=== PATIENT | female | born 1940 | race Caucasian/White ===

== ENCOUNTER → 2017-10-22 07:46 | Outpatient (CLI) | payer MEDICARE, OTHER, SELFPAY ==
[2017-10-22 09:25] LABS: Add Manual Diff / Slide Review NO; Eosinophils Percent Auto 5.1 % (2-4); Hematocrit 39.9 % (36-46); Hemoglobin 13.8 g/dL (12.0-16.0); Lymphocytes Percent Auto 34.4 % (25-40); Mean Corpuscular HGB Conc 34.7 % (30-36); Mean Corpuscular Hemoglobin 34.5 PG (26-34); Mean Corpuscular Volume 99.6 fL (80-100); Monocytes Percent Auto 7.9 % (3-14); Neutrophils Absolute Auto 3400 /uL (3000-5900); Neutrophils Percent Auto 51.6 % (50-75); Platelet Count 207 X10^3/uL (150-400); White Blood Cell Count 6.5 X10^3/uL (4.5-11.0)
[2017-10-22 09:33] LABS: Alanine Aminotransferase 24 IU/L (9-52); Albumin 3.9 g/dL (3.5-5.0); Albumin Globulin Ratio 1.4 (1.0-2.8); Alkaline Phosphatase 46 U/L (38-126); Aspartate Aminotransferase 22 IU/L (14-36); BUN Creatinine Ratio 18.6 (6-22); Bilirubin Total 0.6 mg/dL (0.2-1.3); Blood Urea Nitrogen 13 mg/dL (7-17); Calcium 9.4 mg/dL (8.4-10.2); Carbon Dioxide 29 mmol/L (22-32); Chloride 102 mmol/L (98-107); Cholesterol 214 mg/dL (140-199); Estimated Glomerular Filt Rate > 60.0 mL/min (>60); Globulin 2.7 g/dL (1.7-4.1); Glucose 117 mg/dL (80-110); HDL Cholesterol 56 mg/dL (40-60); HEMOLYSIS < 15 (0-50); LDL Cholesterol Calculated 125 mg/dL (<100); Potassium 3.7 mmol/L (3.4-5.1); Sodium 140 mmol/L (137-145); Total Protein 6.6 g/dL (6.3-8.2); Triglycerides 166 mg/dL (35-150)
== END ==
PROVIDERS: PCP Family Medicine; Visit Provider Family Medicine
DX: I10 Essential (primary) hypertension (principal); E78.5 Hyperlipidemia, unspecified
CPT/HCPCS: 36415; 80053; 80061; 85025

== ENCOUNTER → 2018-04-03 08:37 | Outpatient (CLI) | payer MEDICARE, OTHER, SELFPAY ==
--- NOTE | 2018-04-03 | DI.MRI.S_ITS ---
PROCEDURE: MR SHOULDER RT WO CON INDICATIONS: UNSPECIFIED ROTATOR CUFF TEAR TECHNIQUE: Noncontrast oblique coronal T2 fast spin echo with fat saturation, oblique sagittal T1 spin echo and T2 fast spin echo with fat saturation, axial T1 spin echo and T2 fast spin echo with fat saturation through the shoulder. COMPARISON: [facility] [place], [place], XR SHOULDER 2+ VIEWS RIGHT, 01/21/2018, 11:29. FINDINGS: Image quality: Excellent. Rotator cuff: The full-thickness tear of the anterior supraspinatus tendon measuring 1.0 cm in AP dimension on sagittal image 13 series 10. This measures 1.0 cm in the transverse dimension seen on coronal image 10 series 8. Infraspinatus tendinopathy and interstitial tearing. There is also infraspinatus low-grade articular surface fraying. The teres minor appears intact. Mild subscapularis tendinopathy and thickening. There is severe atrophy of the supraspinatus muscle. Diffuse fatty infiltration of the infraspinatus also present, and may involve the teres minor Bones and bursae: No bone marrow contusions or fractures. Moderate to severe acromioclavicular joint degeneration. The acromion demonstrates conventional anatomy, without an os acromiale. Capsule and soft tissues: Ill-defined superior -labral tear/degeneration, which may be chronic although technically age-indeterminate.There is also ill-defined intermediate intrasubstance signal change within the posterior labrum. The anterior labrum appears grossly intact. Blunted appearance of the inferior labral segment. The long head of the biceps tendon demonstrates normal location and morphology. The rotator interval appears normal, without fibrosis. The coracohumeral ligament is normal in thickness. IMPRESSION: Full-thickness tear of the supraspinatus tendon. Associated severe supraspinatus muscle atrophy. Infraspinatus tendinopathy and interstitial tearing, with low-grade articular surface fraying. Diffuse fatty filtration of the infraspinatus and teres minor muscles. Mild subscapularis tendinopathy. Ill-defined superior and posterior labral tear/degenerative fraying. This finding is technically age-indeterminate. Dictated by: Harshad Wilde M.D. on 04/05/2018 at 10:13 Approved by: Harshad Wilde M.D. on 04/05/2018 at 10:25
== END ==
PROVIDERS: PCP Student in an Organized Health Care Education/Training Program; Visit Provider Orthopaedic Surgery
DX: M75.121 Complete rotator cuff tear or rupture of right shoulder, not specified as traumatic (principal)
CPT/HCPCS: 73221

== ENCOUNTER 2018-06-17 16:00 | Outpatient (RCR) | payer MEDICARE, OTHER, SELFPAY ==
--- NOTE | 2018-04-27 17:15 | PT.OIE ---
Current Diagnoses Other specific arthropathies, not elsewhere classified, right shoulder (04/27/18) Unspecified rotator cuff tear or rupture of right shoulder, not specified as traumatic (04/27/18) Past Medical History (Last Updated 12/17/17 @ 15:39 by Verónica Maldonado LPN) History of DVT of lower extremity (Resolved 2009) History of pulmonary embolism (Resolved 05/2010) Postherpetic neuralgia (Chronic) Hyperlipidemia (Chronic) Essential hypertension (Chronic) Allergic rhinitis (Chronic 1958) Chronic back pain (Chronic 1973) Diverticular disease (Chronic 2016) Vertigo (Chronic Unknown) Cataracts, bilateral (Resolved 2009) Chickenpox (Resolved) Knee pain, left (Resolved ~2011) Measles (Resolved) Polio (Resolved 1954) Pulmonary embolism (Resolved 2013) Skin cancer (Resolved 2013) Substance abuse (Resolved 1959) Past Surgical History (Last Updated 12/17/17 @ 15:39 by Verónica Maldonado LPN) S/P hysterectomy (Resolved 1988) Status post breast reduction (Resolved 1994) Status post cataract surgery (Resolved 2009) History of section (Resolved 1959) History of section (Resolved 1961) History of section (Resolved 1966) History of lumbar laminectomy (Resolved ~1973) Provider Visit Care Team Role Provider Type Francis Benton MD Attending Provider Physician Primary Care Provider Specialty: Internal Medicine Address: [address] [place] [address], [facility] Email: Physical Therapy Initial Evaluation PT-OP-A Visit Information Start: 04/27/18 15:29 Freq: Status: Active Protocol: Document 04/27/18 14:30 HH (Rec: 04/27/18 15:47 [email or web address]) Out-Patient Physical Therapy Visit Information Visit Information Visit Type Initial Evaluation Visit Start Time 14:30 Visit Stop Time 15:20 Total Visit Minutes 50 Visit Number 1 Number of AEROSPACE MEDICINE PHYSICIAN Visits 0 Evaluation Information Evaluation Date 04/27/18 PT-OP-B Current Condition Start: 04/27/18 15:29 Freq: Status: Active Protocol: Document 04/27/18 14:30 HH (Rec: 04/27/18 15:47 [email or web address]) Current Condition History of Current Condition Onset Date 2017 Current Complaints R RTC tear History of Current Condition Pt c/o R shoulder pain 4-10 since 4 months ago and was dx with R RTC tear from MRI. Pt states My doctor told me this is an old RTC tear so i recommend to get physical therapy instead of surgical approach. told me there is some muscle atrophy for the rest of the RTC. Pt also reports my ROM is pretty good at this point but i have difficulty lifting my coffee cup, using communications department chairperson and driving for long distance. Pt c/o pain worsens during shoulder flexion and abduction at 90 degrees. Prior Treatments and Tests pt received physical therapy before but it did not help her symptoms. Treatment Goals Patient/Caregiver Goals To strengthen overall shoulder muscles To be able to lift her coffee cup without pain To be able to use hair salon manager without pain To be able to drive for long distance without pain Prior Functional Status Baseline Function- ADL's Independent Baseline Function- Mobility Independent Baseline Function- Work/School independent Baseline Function- Recreation/Hobbies independent Current Functional Impairments (Reported) Functional Limitations- ADL's careful and slow with dressing , holding objects and using hair dryers PT-OP-C Subjective Start: 04/27/18 15:29 Freq: Status: Active Protocol: Document 04/27/18 14:30 HH (Rec: 04/27/18 15:47 HH [email or web address]) OP-PT Subjective Patient Comments Patient Reported Progress Same Patient Questionnaires Quick Dash- Upper Extremity Quick Dash UE Impairment 20 to 39% Impaired (Score 20- 39) OP-PT Pain Assessment Location Right Shoulder Pain Location Details superior aspect of R shoulder Intensity 6 Scale Used Numeric (1 - 10) Description Aching Dull Frequency Constant Pain Aggravating Factors ADL's Activity Exercise Pain Alleviating Factors Elevation PT-OP-F Manual Assessment Start: 04/27/18 15:29 Freq: Status: Active Protocol: Document 04/27/18 14:30 HH (Rec: 04/27/18 15:47 HH [email or web address]) Manual Assessments Soft Tissue Assessment Soft Tissue Mobility Assessment Tenderness at R upper trap, middle deltoid and infraspinatus PT-OP-K Range of Motion Start: 04/27/18 15:29 Freq: Status: Active Protocol: Document 04/27/18 14:30 HH (Rec: 04/27/18 15:47 HH [email or web address]) Shoulder Goniometric Range of Motion Shoulder Measured in Degrees Right Passive Shoulder ROM WFL Yes Testing Position Supine Flexion 180 Extension 60 Abduction 180 External Rotation at 90 degrees 90 Abduction Internal Rotation 80 Right Active Shoulder ROM WFL Yes Testing Position Standing Flexion 180 Extension 50 Abduction 180 External Rotation at 90 degrees 80 Abduction Internal Rotation 70 PT-OP-L Special Tests Start: 04/27/18 15:29 Freq: Status: Active Protocol: Document 04/27/18 14:30 HH (Rec: 04/27/18 15:47 [email or web address]) Special Tests Shoulder Special Tests Elevation Impingement Test Results +ve Comments Painful arc most painful at 90 degrees shoulder flexion and abduction . Drop Arm Rotator Cuff Test Results +ve Comments unable to hold >10 secs at 90 degrees with elbow extension Empty Can Test Results +ve Comments unable to hold >10 secs PT-OP-M Strength Start: 04/27/18 15:29 Freq: Status: Active Protocol: Document 04/27/18 14:30 HH (Rec: 04/27/18 16:04 [email or web address]) Shoulder Strength Shoulder Manual Muscle Testing Right Flexion 3 Fair Extension 4- Good- Abduction (C5) 3 Fair Adduction 4- Good- External Rotation 3 Fair Internal Rotation 3 Fair PT-OP-Q Treatments Start: 04/27/18 15:29 Freq: Status: Active Protocol: Document 04/27/18 14:30 HH (Rec: 04/27/18 17:15 [email or web address]) Therapeutic Exercises Sitting Exercises 1 Sitting Exercise Name R shoulder table lift. Side right Comments 5 seconds hold at 60 R shoulder abd. Neuro Re-Education Treatment Movement Re-Education Movement Re-education Activities MET in supine at R 90 shoulder ABD for painful range. Isometric to concentric from end range of ER to IR PT-OP-T Assessment and Plan Start: 04/27/18 15:29 Freq: Status: Active Protocol: Document 04/27/18 14:30 HH (Rec: 04/27/18 16:04 [email or web address]) Physical Therapy Assessment Rehab Potential Rehabilitation Potential Good Evaluation Complexity Number of Personal Factors/Comorbidities 1-2 Number of Body Systems Impaired 1-2 Clinical Presentation at Evaluation Stable Impairments Impairments Functional Activities Functional Mobility Pain ROM Strength Goals Three Impairment ROM Short Term Goal (STG) Increase GH IR and ER at 90 degrees GH abduction by 10 degrees in pain free STG Duration 4 Jail Goal (LTG) Increase GH IR and ER at 90 degrees GH abduction by 20 degrees in pain free LTG Duration 8 Two Impairment ADLs Short Term Goal (STG) Reduce R shoulder pain by 2 points during overhead movements and ADLs dressing STG Duration 4 Collection Coordinator Goal (LTG) Reduce R shoulder pain by 4 points during overhead movements and ADLs dressing LTG Duration 8 One Impairment strenght Short Term Goal (STG) increase overall shoulder strength 1/2 MMT grade STG Duration 4 Jail Goal (LTG) increase overall shoulder strength 1 MMT grade LTG Duration 8 Assessment Summary Assessment Pt attends PT with a history of chronic R shoulder pain with a recent dx of R RTC tear . Pt states decrease mobility and strength for ADLs recently such as holding a coffee cup, dressing and hold a hair salon manager. Upon assessment, pt presents WFLs AROM and PROM along with c/o painful arc. Pain gets worse at 90 degrees shoulder flexion and abduction eccentrically; end range of ER and IR. However, pt reports pain improved after MET with isometric contraction at painful arc. Pt's ER and IR at 90 degrees GH abduction increase 10 degrees after MET as well. Pt education on isometric contraction for GH ER IR (against door) and isometric shoulder lift (60 degrees shoulder abduction) at table level for HEP. Pt reports improvements in symptoms with reduced pain during GH flexion and abduction at the end of tx session. Pt will benefit from skilled physical therapy for overall RTC neuromuscular reeducation and shoulder strengthening to improve functional mobility. Physical Therapy Plan Frequency and Duration Frequency of Treatment 2x/Week Duration of Treatment 50 Plan of Care Start Date 04/27/18 Plan of Care End Date 06/22/17 Therapeutic Interventions Therapeutic Interventions Home Exercise Program Manual Therapy Neuromuscular Re-education Patient/Caregiver Education Therapeutic Activities Therapeutic Exercises Next Visit Focus/Plan Next Note Type Treatment Note Next Visit Plan Cont MET for painful range with progression from isometric to concentric shoulder stabilization CKC/ OK[facility] therex
--- NOTE | 2018-04-29 17:52 | PT.OTN ---
Current Diagnoses Other specific arthropathies, not elsewhere classified, right shoulder (04/29/18) Unspecified rotator cuff tear or rupture of right shoulder, not specified as traumatic (04/29/18) Physical Therapy Treatment Note PT-OP-A Visit Information Start: 04/27/18 15:29 Freq: Status: Active Protocol: Document 04/29/18 15:15 HH (Rec: 04/29/18 17:52 [email or web address]) Out-Patient Physical Therapy Visit Information Visit Information Visit Type Treatment Note Visit Start Time 15:15 Visit Stop Time 16:00 Total Visit Minutes 45 Visit Number 2 Number of WORD PROCESSING SUPERVISOR Visits 0 PT-OP-B Current Condition Start: 04/27/18 15:29 Freq: Status: Active Protocol: Document 04/27/18 14:30 HH (Rec: 04/27/18 15:47 HH [email or web address]) Current Condition History of Current Condition Onset Date 2017 Current Complaints R RTC tear History of Current Condition Pt c/o R shoulder pain 4-10/25 since 4 months ago and was dx with R RTC tear from MRI. Pt states My doctor told me this is an old RTC tear so i recommend to get physical therapy instead of surgical approach. told me there is some muscle atrophy for the rest of the RTC. Pt also reports my ROM is pretty good at this point but i have difficulty lifting my coffee cup, using chairman of the board and driving for long distance. Pt c/o pain worsens during shoulder flexion and abduction at 90 degrees. Prior Treatments and Tests pt received physical therapy before but it did not help her symptoms. Treatment Goals Patient/Caregiver Goals To strengthen overall shoulder muscles To be able to lift her coffee cup without pain To be able to use hair machine operator without pain To be able to drive for long distance without pain Prior Functional Status Baseline Function- ADL's Independent Baseline Function- Mobility Independent Baseline Function- Work/School independent Baseline Function- Recreation/Hobbies independent Current Functional Impairments (Reported) Functional Limitations- ADL's careful and slow with dressing , holding objects and using hair dryers PT-OP-C Subjective Start: 04/27/18 15:29 Freq: Status: Active Protocol: Document 04/29/18 15:15 HH (Rec: 04/29/18 17:52 HH [email or web address]) OP-PT Subjective Patient Comments Patient Comments pt reports HEP isometric abduction hold has been difficult to perform. I feel kind of sore today after i did my home exercises yesterday. Patient Reported Progress Same OP-PT Pain Assessment Location Right Shoulder Intensity 5 Description Aching Frequency Frequent Pain Aggravating Factors Activity Exercise PT-OP-F Manual Assessment Start: 04/27/18 15:29 Freq: Status: Active Protocol: Document 04/27/18 14:30 HH (Rec: 04/27/18 15:47 [email or web address]) Manual Assessments Soft Tissue Assessment Soft Tissue Mobility Assessment Tenderness at R upper trap, middle deltoid and infraspinatus PT-OP-K Range of Motion Start: 04/27/18 15:29 Freq: Status: Active Protocol: Document 04/27/18 14:30 HH (Rec: 04/27/18 15:47 [email or web address]) Shoulder Goniometric Range of Motion Shoulder Measured in Degrees Right Passive Shoulder ROM WFL Yes Testing Position Supine Flexion 180 Extension 60 Abduction 180 External Rotation at 90 degrees 90 Abduction Internal Rotation 80 Right Active Shoulder ROM WFL Yes Testing Position Standing Flexion 180 Extension 50 Abduction 180 External Rotation at 90 degrees 80 Abduction Internal Rotation 70 PT-OP-L Special Tests Start: 04/27/18 15:29 Freq: Status: Active Protocol: Document 04/27/18 14:30 HH (Rec: 04/27/18 15:47 [email or web address]) Special Tests Shoulder Special Tests Elevation Impingement Test Results +ve Comments Painful arc most painful at 90 degrees shoulder flexion and abduction . Drop Arm Rotator Cuff Test Results +ve Comments unable to hold >10 secs at 90 degrees with elbow extension Empty Can Test Results +ve Comments unable to hold >10 secs PT-OP-M Strength Start: 04/27/18 15:29 Freq: Status: Active Protocol: Document 04/27/18 14:30 HH (Rec: 04/27/18 16:04 HH [email or web address]) Shoulder Strength Shoulder Manual Muscle Testing Right Flexion 3 Fair Extension 4- Good- Abduction (C5) 3 Fair Adduction 4- Good- External Rotation 3 Fair Internal Rotation 3 Fair PT-OP-Q Treatments Start: 04/27/18 15:29 Freq: Status: Active Protocol: Document 04/29/18 15:15 HH (Rec: 04/29/18 17:52 HH [email or web address]) Therapeutic Exercises Supine Exercises supine elevation with cane Supine Exercise Name AAROM with L UE Side right Equipment Used cane Reps/Minutes 5 mins Sitting Exercises 1 Sitting Exercise Name table slide Side right Reps/Minutes 10 reps Standing Exercises R UE AAROM shoulder elevation with cane Standing Exercise Name AAROM Side right Equipment Used cane Manual Therapy Treatment Soft Tissue Mobilization active release at R RTC Body Location R RTC Mobilization Type Cross-Friction Intensity/Depth Superficial Body Position Sidelying Comments along with sidelying R GH ER PT-OP-T Assessment and Plan Start: 04/27/18 15:29 Freq: Status: Active Protocol: Document 04/29/18 15:15 HH (Rec: 04/29/18 17:52 HH [email or web address]) Physical Therapy Assessment Impairments Impairments Pain ROM Strength Assessment Summary Assessment Pt presents to clinic with c/o my R shoulder is pretty sore after trying the shoulder hold at home. Pt starts with PROM at R GH joint. Pt presents mild to moderate muscle guarding during passive movements. Pt requires v.c. for muscle relaxation. Pt reports reduce in pain to use a cane for AAROM. pt also denies pain with sidelying active ER and IR. Pt is instructed to modify her HEP which includes AAROM with a cane for R GH flexion and abduction; table slides into GH flexion and abduction. Pt also reports decrease in pain after E-stim with biphasic [place] parameter (intensity at 30, cont ) at her trap and infraspinatus. Cont POC with the emphasis of passive/ AAROM along with scapular strengthening. Physical Therapy Plan Therapeutic Interventions Therapeutic Interventions Home Exercise Program Neuromuscular Re-education Patient/Caregiver Education Soft Tissue Mobilization Taping Therapeutic Activities Therapeutic Exercises Modalities Cold Pack/Ice Massage Electric Stimulation Hot Packs Next Visit Focus/Plan Next Note Type Treatment Note Next Visit Plan KT tape for shoulder stability passive/ AAROM along with scapular strengthening.
--- NOTE | 2018-05-04 13:03 | PT.OTN ---
Current Diagnoses Other specific arthropathies, not elsewhere classified, right shoulder (05/04/18) Unspecified rotator cuff tear or rupture of right shoulder, not specified as traumatic (05/04/18) Physical Therapy Treatment Note PT-OP-A Visit Information Start: 04/27/18 15:29 Freq: Status: Active Protocol: Document 05/04/18 09:45 HH (Rec: 05/04/18 11:30 HH [email or web address]) Out-Patient Physical Therapy Visit Information Visit Information Visit Type Treatment Note Visit Start Time 09:45 Visit Stop Time 10:30 Total Visit Minutes 45 Visit Number 3 Number of INDUSTRIAL PARAMEDIC Visits 0 PT-OP-B Current Condition Start: 04/27/18 15:29 Freq: Status: Active Protocol: Document 04/27/18 14:30 HH (Rec: 04/27/18 15:47 HH [email or web address]) Current Condition History of Current Condition Onset Date 2017 Current Complaints R RTC tear History of Current Condition Pt c/o R shoulder pain 4-10/25 since 4 months ago and was dx with R RTC tear from MRI. Pt states My doctor told me this is an old RTC tear so i recommend to get physical therapy instead of surgical approach. told me there is some muscle atrophy for the rest of the RTC. Pt also reports my ROM is pretty good at this point but i have difficulty lifting my coffee cup, using counseling department chair and driving for long distance. Pt c/o pain worsens during shoulder flexion and abduction at 90 degrees. Prior Treatments and Tests pt received physical therapy before but it did not help her symptoms. Treatment Goals Patient/Caregiver Goals To strengthen overall shoulder muscles To be able to lift her coffee cup without pain To be able to use chair mechanic without pain To be able to drive for long distance without pain Prior Functional Status Baseline Function- ADL's Independent Baseline Function- Mobility Independent Baseline Function- Work/School independent Baseline Function- Recreation/Hobbies independent Current Functional Impairments (Reported) Functional Limitations- ADL's careful and slow with dressing , holding objects and using hair dryers PT-OP-C Subjective Start: 04/27/18 15:29 Freq: Status: Active Protocol: Document 05/04/18 09:45 HH (Rec: 05/04/18 11:30 HH [email or web address]) OP-PT Subjective Patient Comments Patient Comments pt complies to HEP. However, she c/o increased achy and dull pain at her right shoulder since this weekend after prolonged cleaning and moving heavy objects with her R UE. I am so used to use my R arm without knowing it and i feel weak. But my shoulder did feel good after last visit for 2 days Patient Reported Progress Same OP-PT Pain Assessment Location Right Shoulder Intensity 5 Description Aching Frequency Frequent Pain Aggravating Factors ADL's Activity Exercise Pain Alleviating Factors Heat PT-OP-F Manual Assessment Start: 04/27/18 15:29 Freq: Status: Active Protocol: Document 04/27/18 14:30 HH (Rec: 04/27/18 15:47 [email or web address]) Manual Assessments Soft Tissue Assessment Soft Tissue Mobility Assessment Tenderness at R upper trap, middle deltoid and infraspinatus PT-OP-K Range of Motion Start: 04/27/18 15:29 Freq: Status: Active Protocol: Document 04/27/18 14:30 HH (Rec: 04/27/18 15:47 [email or web address]) Shoulder Goniometric Range of Motion Shoulder Measured in Degrees Right Passive Shoulder ROM WFL Yes Testing Position Supine Flexion 180 Extension 60 Abduction 180 External Rotation at 90 degrees 90 Abduction Internal Rotation 80 Right Active Shoulder ROM WFL Yes Testing Position Standing Flexion 180 Extension 50 Abduction 180 External Rotation at 90 degrees 80 Abduction Internal Rotation 70 PT-OP-L Special Tests Start: 04/27/18 15:29 Freq: Status: Active Protocol: Document 04/27/18 14:30 HH (Rec: 04/27/18 15:47 [email or web address]) Special Tests Shoulder Special Tests Elevation Impingement Test Results +ve Comments Painful arc most painful at 90 degrees shoulder flexion and abduction . Drop Arm Rotator Cuff Test Results +ve Comments unable to hold >10 secs at 90 degrees with elbow extension Empty Can Test Results +ve Comments unable to hold >10 secs PT-OP-M Strength Start: 04/27/18 15:29 Freq: Status: Active Protocol: Document 04/27/18 14:30 HH (Rec: 04/27/18 16:04 [email or web address]) Shoulder Strength Shoulder Manual Muscle Testing Right Flexion 3 Fair Extension 4- Good- Abduction (C5) 3 Fair Adduction 4- Good- External Rotation 3 Fair Internal Rotation 3 Fair PT-OP-Q Treatments Start: 04/27/18 15:29 Freq: Status: Active Protocol: Document 05/04/18 09:45 HH (Rec: 05/04/18 11:30 HH [email or web address]) Therapeutic Exercises Sitting Exercises seated scap depression Sitting Exercise Name scap depression Equipment Used mirror Reps/Minutes 2 mins 1 Sitting Exercise Name OH wall sling AAROM Side right Reps/Minutes 2 mins Comments GH flexion, abduction and, extension Standing Exercises iso scap retraction Resistance isometric Reps/Minutes 2 mins AAROM flexion with hip hinge Standing Exercise Name R GH flexion at stair handle and hip hinge Resistance AAROM Reps/Minutes 10 reps iso push against wall at 90 elbow Standing Exercise Name iso push at ER, IR, FL, Ext Resistance isometric Reps/Minutes 10 secs hold Neuro Re-Education Treatment Other Activities E STIM biphasic Details at R RTC Comments with hot pad PT-OP-T Assessment and Plan Start: 04/27/18 15:29 Freq: Status: Active Protocol: Document 05/04/18 09:45 HH (Rec: 05/04/18 13:02 HH [email or web address]) Physical Therapy Assessment Impairments Impairments Activity Tolerance Functional Activities Functional Mobility Pain ROM Strength Progress Towards Goals Progress Towards Goals Slow Progress - Other Progress Comments Pt presents slow rehab progress due to other factors such as househould duties with lifting and cleaning which consistently resistive work for her R shoulder. Assessment Summary Assessment Pt presents to clinic with increased c/o of achy pain at her R shoulder after household cleaning for the weekend. Pt education on awareness of workload to her R shoulder. Pt presents increased R UT activation during R shoulder OH movements. Pt cont presents difficulty in scap control primarily scap depression and retraction with R UT compensation. Relaxation techniques include scap depression with mirror. Pt denies pain during iso push against wall with R GH extension and IR. She also reports reduce in pain after Estim (biphasic 10/10 intensity 30 at RTC) and hot pack. Cont POC to emphasize on R UT relaxation, NM re-ed on R remaining RTC for GH stability, isometric strengthening for RTC and AAROM movements. Physical Therapy Plan Therapeutic Interventions Therapeutic Interventions Home Exercise Program Neuromuscular Re-education Patient/Caregiver Education Soft Tissue Mobilization Taping Therapeutic Activities Therapeutic Exercises Modalities Cold Pack/Ice Massage Electric Stimulation Hot Packs Next Visit Focus/Plan Next Note Type Treatment Note Next Visit Plan R KT tape R UT relaxation, NM re-ed on R remaining RTC for GH stabiltiy, isometric strengthening for RTC and passive/ AAROM movements.
--- NOTE | 2018-05-06 17:44 | PT.OTN ---
Current Diagnoses Other specific arthropathies, not elsewhere classified, right shoulder (05/06/18) Unspecified rotator cuff tear or rupture of right shoulder, not specified as traumatic (05/06/18) Physical Therapy Treatment Note PT-OP-A Visit Information Start: 04/27/18 15:29 Freq: Status: Active Protocol: Document 05/06/18 16:00 HH (Rec: 05/06/18 17:44 HH [email or web address]) Out-Patient Physical Therapy Visit Information Visit Information Visit Type Treatment Note Visit Start Time 16:00 Visit Stop Time 16:45 Total Visit Minutes 45 Visit Number 4 Number of INSOLE AND OUTSOLE PREPARER Visits 0 PT-OP-B Current Condition Start: 04/27/18 15:29 Freq: Status: Active Protocol: Document 04/27/18 14:30 HH (Rec: 04/27/18 15:47 HH [email or web address]) Current Condition History of Current Condition Onset Date 2017 Current Complaints R RTC tear History of Current Condition Pt c/o R shoulder pain 4-10 since 4 months ago and was dx with R RTC tear from MRI. Pt states My doctor told me this is an old RTC tear so i recommend to get physical therapy instead of surgical approach. told me there is some muscle atrophy for the rest of the RTC. Pt also reports my ROM is pretty good at this point but i have difficulty lifting my coffee cup, using hairpiece stylist and driving for long distance. Pt c/o pain worsens during shoulder flexion and abduction at 90 degrees. Prior Treatments and Tests pt received physical therapy before but it did not help her symptoms. Treatment Goals Patient/Caregiver Goals To strengthen overall shoulder muscles To be able to lift her coffee cup without pain To be able to use chair mechanic without pain To be able to drive for long distance without pain Prior Functional Status Baseline Function- ADL's Independent Baseline Function- Mobility Independent Baseline Function- Work/School independent Baseline Function- Recreation/Hobbies independent Current Functional Impairments (Reported) Functional Limitations- ADL's careful and slow with dressing , holding objects and using hair dryers PT-OP-C Subjective Start: 04/27/18 15:29 Freq: Status: Active Protocol: Document 05/06/18 16:00 HH (Rec: 05/06/18 17:44 HH [email or web address]) OP-PT Subjective Patient Comments Patient Comments Pt reports her pain is the same and pain increases during household work such as cleaning and overhead reaching . Patient Reported Progress Same PT-OP-F Manual Assessment Start: 04/27/18 15:29 Freq: Status: Active Protocol: Document 04/27/18 14:30 HH (Rec: 04/27/18 15:47 [email or web address]) Manual Assessments Soft Tissue Assessment Soft Tissue Mobility Assessment Tenderness at R upper trap, middle deltoid and infraspinatus PT-OP-K Range of Motion Start: 04/27/18 15:29 Freq: Status: Active Protocol: Document 04/27/18 14:30 HH (Rec: 04/27/18 15:47 [email or web address]) Shoulder Goniometric Range of Motion Shoulder Measured in Degrees Right Passive Shoulder ROM WFL Yes Testing Position Supine Flexion 180 Extension 60 Abduction 180 External Rotation at 90 degrees 90 Abduction Internal Rotation 80 Right Active Shoulder ROM WFL Yes Testing Position Standing Flexion 180 Extension 50 Abduction 180 External Rotation at 90 degrees 80 Abduction Internal Rotation 70 PT-OP-L Special Tests Start: 04/27/18 15:29 Freq: Status: Active Protocol: Document 04/27/18 14:30 HH (Rec: 04/27/18 15:47 [email or web address]) Special Tests Shoulder Special Tests Elevation Impingement Test Results +ve Comments Painful arc most painful at 90 degrees shoulder flexion and abduction . Drop Arm Rotator Cuff Test Results +ve Comments unable to hold >10 secs at 90 degrees with elbow extension Empty Can Test Results +ve Comments unable to hold >10 secs PT-OP-M Strength Start: 04/27/18 15:29 Freq: Status: Active Protocol: Document 04/27/18 14:30 HH (Rec: 04/27/18 16:04 [email or web address]) Shoulder Strength Shoulder Manual Muscle Testing Right Flexion 3 Fair Extension 4- Good- Abduction (C5) 3 Fair Adduction 4- Good- External Rotation 3 Fair Internal Rotation 3 Fair PT-OP-Q Treatments Start: 04/27/18 15:29 Freq: Status: Active Protocol: Document 05/06/18 16:00 HH (Rec: 05/06/18 17:44 HH [email or web address]) Therapeutic Exercises Prone Exercises scapular retraction Prone Exercise Name R scap retraction Reps/Minutes 10 reps x 2 Sidelying Exercises R GH ER/IR with 1 lbs Equipment Used 1 lb dumbbell Reps/Minutes 8 mins R sidelying open book Side right Reps/Minutes 8mins Manual Therapy Treatment Soft Tissue Mobilization active release at R RTC Body Location R RTC and R UT Mobilization Type Cross-Friction Intensity/Depth Superficial Body Position Prone PT-OP-T Assessment and Plan Start: 04/27/18 15:29 Freq: Status: Active Protocol: Document 05/06/18 16:00 HH (Rec: 05/06/18 17:44 HH [email or web address]) Physical Therapy Assessment Assessment Summary Assessment Pt cont report same level of pain. Pt states household work such as OH activities/ cleaning increase her symptoms . Significant tenderness at R greater tuberosity and distal insertion of R UT. Pt denies pain during R scapular open book in SL and SL R GH ER/IR with 1 lb dumbbell, but significant pain during shoulder abduction and flexion . Cont POC to strengthening in ER and IR, and available pain free motion. Physical Therapy Plan Next Visit Focus/Plan Next Note Type Treatment Note Next Visit Plan R KT tape R UT relaxation, NM re-ed on R remaining RTC for GH stabiltiy, isometric strengthening for RTC and passive/ AAROM movements. R ER and horizontal abduction
--- NOTE | 2018-05-12 17:30 | PT.OTN ---
Current Diagnoses Other specific arthropathies, not elsewhere classified, right shoulder (05/12/18) Unspecified rotator cuff tear or rupture of right shoulder, not specified as traumatic (05/12/18) Physical Therapy Treatment Note PT-OP-A Visit Information Start: 04/27/18 15:29 Freq: Status: Active Protocol: Document 05/12/18 15:15 HH (Rec: 05/12/18 17:30 HH [email or web address]) Out-Patient Physical Therapy Visit Information Visit Information Visit Type Treatment Note Visit Start Time 15:15 Visit Stop Time 16:00 Total Visit Minutes 45 Visit Number 5 Number of MANAGER OF CREATIVE SERVICES Visits 0 PT-OP-B Current Condition Start: 04/27/18 15:29 Freq: Status: Active Protocol: Document 04/27/18 14:30 HH (Rec: 04/27/18 15:47 HH [email or web address]) Current Condition History of Current Condition Onset Date 2017 Current Complaints R RTC tear History of Current Condition Pt c/o R shoulder pain 4-10/25 since 4 months ago and was dx with R RTC tear from MRI. Pt states My doctor told me this is an old RTC tear so i recommend to get physical therapy instead of surgical approach. told me there is some muscle atrophy for the rest of the RTC. Pt also reports my ROM is pretty good at this point but i have difficulty lifting my coffee cup, using applied psychology chair and driving for long distance. Pt c/o pain worsens during shoulder flexion and abduction at 90 degrees. Prior Treatments and Tests pt received physical therapy before but it did not help her symptoms. Treatment Goals Patient/Caregiver Goals To strengthen overall shoulder muscles To be able to lift her coffee cup without pain To be able to use chair spring assembler without pain To be able to drive for long distance without pain Prior Functional Status Baseline Function- ADL's Independent Baseline Function- Mobility Independent Baseline Function- Work/School independent Baseline Function- Recreation/Hobbies independent Current Functional Impairments (Reported) Functional Limitations- ADL's careful and slow with dressing , holding objects and using hair dryers PT-OP-C Subjective Start: 04/27/18 15:29 Freq: Status: Active Protocol: Document 05/12/18 15:15 HH (Rec: 05/12/18 17:30 HH [email or web address]) OP-PT Subjective Patient Comments Patient Comments Pt reports her pain and symptoms have been the same since last visit. Pt states she has been doing lots of house work and cleaning with the use of her R UE. She c/o soreness and fatigue especially maintaining her R arm at shoulder level. She also reports I have a hard time to not use my R shoulder because its like my instinct. Pt reports she is compliant to HEP and heat pad seems to reduce her pain. Patient Reported Progress Same PT-OP-F Manual Assessment Start: 04/27/18 15:29 Freq: Status: Active Protocol: Document 04/27/18 14:30 HH (Rec: 04/27/18 15:47 [email or web address]) Manual Assessments Soft Tissue Assessment Soft Tissue Mobility Assessment Tenderness at R upper trap, middle deltoid and infraspinatus PT-OP-K Range of Motion Start: 04/27/18 15:29 Freq: Status: Active Protocol: Document 04/27/18 14:30 HH (Rec: 04/27/18 15:47 [email or web address]) Shoulder Goniometric Range of Motion Shoulder Measured in Degrees Right Passive Shoulder ROM WFL Yes Testing Position Supine Flexion 180 Extension 60 Abduction 180 External Rotation at 90 degrees 90 Abduction Internal Rotation 80 Right Active Shoulder ROM WFL Yes Testing Position Standing Flexion 180 Extension 50 Abduction 180 External Rotation at 90 degrees 80 Abduction Internal Rotation 70 PT-OP-L Special Tests Start: 04/27/18 15:29 Freq: Status: Active Protocol: Document 04/27/18 14:30 HH (Rec: 04/27/18 15:47 [email or web address]) Special Tests Shoulder Special Tests Elevation Impingement Test Results +ve Comments Painful arc most painful at 90 degrees shoulder flexion and abduction . Drop Arm Rotator Cuff Test Results +ve Comments unable to hold >10 secs at 90 degrees with elbow extension Empty Can Test Results +ve Comments unable to hold >10 secs PT-OP-M Strength Start: 04/27/18 15:29 Freq: Status: Active Protocol: Document 04/27/18 14:30 HH (Rec: 04/27/18 16:04 [email or web address]) Shoulder Strength Shoulder Manual Muscle Testing Right Flexion 3 Fair Extension 4- Good- Abduction (C5) 3 Fair Adduction 4- Good- External Rotation 3 Fair Internal Rotation 3 Fair PT-OP-Q Treatments Start: 04/27/18 15:29 Freq: Status: Active Protocol: Document 05/12/18 15:15 HH (Rec: 05/12/18 17:30 HH [email or web address]) Therapeutic Exercises Sidelying Exercises R GH ER/IR with 1 lbs Equipment Used 1 lb dumbbell Reps/Minutes 8 mins Comments with grenadian stim at R RTC R sidelying open book Side right Reps/Minutes 8mins Comments with grenadian stim at R RTC Manual Therapy Treatment Taping 1 Body Location R shoulder Type of Tape KT tape Comments along with LT and mid trap fiber and superior inferior assistance at GH joint. Neuro Re-Education Treatment Movement Re-Education Movement Re-education Activities R scap PNF D1 and D2 rhythmic initiation Other Activities passive/ assisted scap mob Details R scapular Reps/Duration sidelying Comments passive/ assisted R scap retraction , downward rot and upward rotation. PT-OP-T Assessment and Plan Start: 04/27/18 15:29 Freq: Status: Active Protocol: Document 05/12/18 15:15 HH (Rec: 05/12/18 17:30 [email or web address]) Physical Therapy Assessment Impairments Impairments Activity Tolerance Functional Activities Functional Mobility Pain ROM Strength Progress Towards Goals Progress Towards Goals Slow Progress - Other Progress Comments Pt presents slow rehab progress due to other factors such as househould duties with lifting and cleaning which consistently resistive work for her R shoulder. Assessment Summary Assessment Pt cont c/o pain and soreness at R shoulder due to repetitive OH movements and carrying at home. Pt does report reduce in pain during assisted scapular mob with OH movements. Pain also reduced after KT tape application to facilitate scapular support and mid trap and LT activation . Pt also less irritation during sidelying OH motions. Pt education is given on decreasing household work that involves the use of R UE Physical Therapy Plan Next Visit Focus/Plan Next Note Type Treatment Note Next Visit Plan scap mob with OH movements NM re-ed on R RTC gravity assisted ROM exercises KT application.
--- NOTE | 2018-05-19 17:49 | PT.OTN ---
Current Diagnoses Other specific arthropathies, not elsewhere classified, right shoulder (05/19/18) Unspecified rotator cuff tear or rupture of right shoulder, not specified as traumatic (05/19/18) Physical Therapy Treatment Note PT-OP-A Visit Information Start: 04/27/18 15:29 Freq: Status: Active Protocol: Document 05/19/18 15:15 HH (Rec: 05/19/18 17:49 [email or web address]) Out-Patient Physical Therapy Visit Information Visit Information Visit Type Treatment Note Visit Start Time 15:15 Visit Stop Time 16:00 Total Visit Minutes 45 Visit Number 6 Number of GROCERY STORE CLERK Visits 0 PT-OP-B Current Condition Start: 04/27/18 15:29 Freq: Status: Active Protocol: Document 04/27/18 14:30 HH (Rec: 04/27/18 15:47 HH [email or web address]) Current Condition History of Current Condition Onset Date 2017 Current Complaints R RTC tear History of Current Condition Pt c/o R shoulder pain 4-10/25 since 4 months ago and was dx with R RTC tear from MRI. Pt states My doctor told me this is an old RTC tear so i recommend to get physical therapy instead of surgical approach. told me there is some muscle atrophy for the rest of the RTC. Pt also reports my ROM is pretty good at this point but i have difficulty lifting my coffee cup, using instructor hairspring and driving for long distance. Pt c/o pain worsens during shoulder flexion and abduction at 90 degrees. Prior Treatments and Tests pt received physical therapy before but it did not help her symptoms. Treatment Goals Patient/Caregiver Goals To strengthen overall shoulder muscles To be able to lift her coffee cup without pain To be able to use dining chair seat cushion trimmer without pain To be able to drive for long distance without pain Prior Functional Status Baseline Function- ADL's Independent Baseline Function- Mobility Independent Baseline Function- Work/School independent Baseline Function- Recreation/Hobbies independent Current Functional Impairments (Reported) Functional Limitations- ADL's careful and slow with dressing , holding objects and using hair dryers PT-OP-C Subjective Start: 04/27/18 15:29 Freq: Status: Active Protocol: Document 05/19/18 15:15 HH (Rec: 05/19/18 17:49 [email or web address]) OP-PT Subjective Patient Comments Patient Comments Pt reports her pain and symptoms have improved after KT tape application since last vist. Pt states i feel my shoulder is more support and i have been reducing my housework load to rest my shoulder and it helps a bit. Patient Reported Progress Improving PT-OP-F Manual Assessment Start: 04/27/18 15:29 Freq: Status: Active Protocol: Document 04/27/18 14:30 HH (Rec: 04/27/18 15:47 HH [email or web address]) Manual Assessments Soft Tissue Assessment Soft Tissue Mobility Assessment Tenderness at R upper trap, middle deltoid and infraspinatus PT-OP-K Range of Motion Start: 04/27/18 15:29 Freq: Status: Active Protocol: Document 04/27/18 14:30 HH (Rec: 04/27/18 15:47 [email or web address]) Shoulder Goniometric Range of Motion Shoulder Measured in Degrees Right Passive Shoulder ROM WFL Yes Testing Position Supine Flexion 180 Extension 60 Abduction 180 External Rotation at 90 degrees 90 Abduction Internal Rotation 80 Right Active Shoulder ROM WFL Yes Testing Position Standing Flexion 180 Extension 50 Abduction 180 External Rotation at 90 degrees 80 Abduction Internal Rotation 70 PT-OP-L Special Tests Start: 04/27/18 15:29 Freq: Status: Active Protocol: Document 04/27/18 14:30 HH (Rec: 04/27/18 15:47 [email or web address]) Special Tests Shoulder Special Tests Elevation Impingement Test Results +ve Comments Painful arc most painful at 90 degrees shoulder flexion and abduction . Drop Arm Rotator Cuff Test Results +ve Comments unable to hold >10 secs at 90 degrees with elbow extension Empty Can Test Results +ve Comments unable to hold >10 secs PT-OP-M Strength Start: 04/27/18 15:29 Freq: Status: Active Protocol: Document 04/27/18 14:30 HH (Rec: 04/27/18 16:04 [email or web address]) Shoulder Strength Shoulder Manual Muscle Testing Right Flexion 3 Fair Extension 4- Good- Abduction (C5) 3 Fair Adduction 4- Good- External Rotation 3 Fair Internal Rotation 3 Fair PT-OP-Q Treatments Start: 04/27/18 15:29 Freq: Status: Active Protocol: Document 05/19/18 15:15 HH (Rec: 05/19/18 17:49 HH [email or web address]) Therapeutic Exercises Sitting Exercises seated thoracic extension Equipment Used against back of chair Reps/Minutes 10 x 3 Standing Exercises scap protraction with shoulder flexion Side left Reps/Minutes 5 x 3 scapular push up plus Equipment Used against wall Reps/Minutes 10 reps x 3 Manual Therapy Treatment Soft Tissue Mobilization active release at R RTC Body Location R RTC and R UT Mobilization Type Trigger Point Release Intensity/Depth Moderate Body Position Prone Taping 1 Body Location R shoulder Type of Tape KT tape Comments along with LT and mid trap fiber and superior inferior assistance at GH joint. Manual Techniques mobilization with movements Type assisted scap rotation with shoulder flexion Reps/Duration 10 x 2 Neuro Re-Education Treatment Other Activities passive/ assisted scap mob Details R scapular Reps/Duration sidelying Comments passive/ assisted R scap retraction , downward rot and upward rotation. PT-OP-T Assessment and Plan Start: 04/27/18 15:29 Freq: Status: Active Protocol: Document 05/19/18 15:15 HH (Rec: 05/19/18 17:49 HH [email or web address]) Physical Therapy Assessment Assessment Summary Assessment Reduced pain noted since last visit after KT application. Pt reports improved R shoulder stability. Pt also presents improved overall scap control. She c/o reduce pain during assisted scap upward and downward rotation during R overhead movements. However, pt cont to presents significant B rounded shoulders and thoracic kyphosis which limits her subacromial space for OH movements. New HEP given with seated thoracic extension, and scap push up plus to facilitate SA activation. Physical Therapy Plan Next Visit Focus/Plan Next Note Type Treatment Note Next Visit Plan scap mob with OH movements NM re-ed on R RTC gravity assisted ROM exercises KT application.
--- NOTE | 2018-05-27 14:55 | PT.OTN ---
Current Diagnoses Other specific arthropathies, not elsewhere classified, right shoulder (05/27/18) Unspecified rotator cuff tear or rupture of right shoulder, not specified as traumatic (05/27/18) Physical Therapy Treatment Note PT-OP-A Visit Information Start: 04/27/18 15:29 Freq: Status: Active Protocol: Document 05/27/18 10:30 AMB (Rec: 05/27/18 13:44 AMB [email or web address]) Out-Patient Physical Therapy Visit Information Visit Information Visit Type Treatment Note Visit Start Time 10:30 Visit Stop Time 11:15 Total Visit Minutes 40 Visit Number 7 Number of FILLETER Visits 0 PT-OP-B Current Condition Start: 04/27/18 15:29 Freq: Status: Active Protocol: Document 04/27/18 14:30 HH (Rec: 04/27/18 15:47 HH [email or web address]) Current Condition History of Current Condition Onset Date 2017 Current Complaints R RTC tear History of Current Condition Pt c/o R shoulder pain 4-10/25 since 4 months ago and was dx with R RTC tear from MRI. Pt states My doctor told me this is an old RTC tear so i recommend to get physical therapy instead of surgical approach. told me there is some muscle atrophy for the rest of the RTC. Pt also reports my ROM is pretty good at this point but i have difficulty lifting my coffee cup, using chairman & chief executive officer and driving for long distance. Pt c/o pain worsens during shoulder flexion and abduction at 90 degrees. Prior Treatments and Tests pt received physical therapy before but it did not help her symptoms. Treatment Goals Patient/Caregiver Goals To strengthen overall shoulder muscles To be able to lift her coffee cup without pain To be able to use chairman & chief executive officer without pain To be able to drive for long distance without pain Prior Functional Status Baseline Function- ADL's Independent Baseline Function- Mobility Independent Baseline Function- Work/School independent Baseline Function- Recreation/Hobbies independent Current Functional Impairments (Reported) Functional Limitations- ADL's careful and slow with dressing , holding objects and using hair dryers PT-OP-C Subjective Start: 04/27/18 15:29 Freq: Status: Active Protocol: Document 05/27/18 10:30 AMB (Rec: 05/27/18 13:44 AMB [email or web address]) OP-PT Subjective Patient Comments Patient Comments Pt states she continues to have pain with arm movement, KT helped the first time, but the second time it fell off quickly. Her exercises do make her shoulder sore. PT-OP-F Manual Assessment Start: 04/27/18 15:29 Freq: Status: Active Protocol: Document 04/27/18 14:30 HH (Rec: 04/27/18 15:47 HH [email or web address]) Manual Assessments Soft Tissue Assessment Soft Tissue Mobility Assessment Tenderness at R upper trap, middle deltoid and infraspinatus PT-OP-K Range of Motion Start: 04/27/18 15:29 Freq: Status: Active Protocol: Document 04/27/18 14:30 HH (Rec: 04/27/18 15:47 HH [email or web address]) Shoulder Goniometric Range of Motion Shoulder Measured in Degrees Right Passive Shoulder ROM WFL Yes Testing Position Supine Flexion 180 Extension 60 Abduction 180 External Rotation at 90 degrees 90 Abduction Internal Rotation 80 Right Active Shoulder ROM WFL Yes Testing Position Standing Flexion 180 Extension 50 Abduction 180 External Rotation at 90 degrees 80 Abduction Internal Rotation 70 PT-OP-L Special Tests Start: 04/27/18 15:29 Freq: Status: Active Protocol: Document 04/27/18 14:30 HH (Rec: 04/27/18 15:47 HH [email or web address]) Special Tests Shoulder Special Tests Elevation Impingement Test Results +ve Comments Painful arc most painful at 90 degrees shoulder flexion and abduction . Drop Arm Rotator Cuff Test Results +ve Comments unable to hold >10 secs at 90 degrees with elbow extension Empty Can Test Results +ve Comments unable to hold >10 secs PT-OP-M Strength Start: 04/27/18 15:29 Freq: Status: Active Protocol: Document 04/27/18 14:30 HH (Rec: 04/27/18 16:04 HH [email or web address]) Shoulder Strength Shoulder Manual Muscle Testing Right Flexion 3 Fair Extension 4- Good- Abduction (C5) 3 Fair Adduction 4- Good- External Rotation 3 Fair Internal Rotation 3 Fair PT-OP-Q Treatments Start: 04/27/18 15:29 Freq: Status: Active Protocol: Document 05/27/18 10:30 AMB (Rec: 05/27/18 14:55 AMB [email or web address]) Therapeutic Exercises Prone Exercises scapular retraction Prone Exercise Name R scap retraction Reps/Minutes 10 reps x 2 Sidelying Exercises 1 Sidelying Exercise Name R abduction Resistance 0 R GH ER/IR with 1 lbs Equipment Used 1 lb dumbbell Sitting Exercises 1 Sitting Exercise Name shoulder flexion stretch Comments at table Standing Exercises 1 Standing Exercise Name modified corner stretch Comments 0 degree abd, into ER scap protraction with shoulder flexion Side left Reps/Minutes 5 x 3 Manual Therapy Treatment Soft Tissue Mobilization active release at R RTC Body Location R RTC and R UT Mobilization Type Trigger Point Release Intensity/Depth Moderate Body Position Supine Taping 1 Body Location R shoulder Type of Tape KT tape Comments Y strip for superior assist at GH, I strip to facilitate mid trap Neuro Re-Education Treatment Other Activities passive/ assisted scap mob Details R scapular Reps/Duration sidelying Comments passive/ assisted R scap retraction , downward rot and upward rotation. PT-OP-T Assessment and Plan Start: 04/27/18 15:29 Freq: Status: Active Protocol: Document 05/27/18 10:30 AMB (Rec: 05/27/18 13:44 AMB [email or web address]) Physical Therapy Assessment Assessment Summary Assessment Encouraged to take time with body mechanics, avoiding excessive strain. Pt tolerated strengthening well, full ROM continues to be painful. Physical Therapy Plan Next Visit Focus/Plan Next Note Type Treatment Note Next Visit Plan Reassess pain with HEP, progress scapular mobility NM re-ed on R RTC gravity assisted ROM exercises KT application.
--- NOTE | 2018-06-01 12:57 | PT.OTN ---
Current Diagnoses Other specific arthropathies, not elsewhere classified, right shoulder (06/01/18) Unspecified rotator cuff tear or rupture of right shoulder, not specified as traumatic (06/01/18) Physical Therapy Treatment Note PT-OP-A Visit Information Start: 04/27/18 15:29 Freq: Status: Active Protocol: Document 06/01/18 11:15 HH (Rec: 06/01/18 12:57 [email or web address]) Out-Patient Physical Therapy Visit Information Visit Information Visit Type Progress Note Visit Start Time 11:15 Visit Stop Time 12:00 Total Visit Minutes 45 Visit Number 8 Number of SPRING TIER Visits 0 PT-OP-B Current Condition Start: 04/27/18 15:29 Freq: Status: Active Protocol: Document 04/27/18 14:30 HH (Rec: 04/27/18 15:47 HH [email or web address]) Current Condition History of Current Condition Onset Date 2017 Current Complaints R RTC tear History of Current Condition Pt c/o R shoulder pain 4-10 since 4 months ago and was dx with R RTC tear from MRI. Pt states My doctor told me this is an old RTC tear so i recommend to get physical therapy instead of surgical approach. told me there is some muscle atrophy for the rest of the RTC. Pt also reports my ROM is pretty good at this point but i have difficulty lifting my coffee cup, using hairspring setter and driving for long distance. Pt c/o pain worsens during shoulder flexion and abduction at 90 degrees. Prior Treatments and Tests pt received physical therapy before but it did not help her symptoms. Treatment Goals Patient/Caregiver Goals To strengthen overall shoulder muscles To be able to lift her coffee cup without pain To be able to use hairspring setter without pain To be able to drive for long distance without pain Prior Functional Status Baseline Function- ADL's Independent Baseline Function- Mobility Independent Baseline Function- Work/School independent Baseline Function- Recreation/Hobbies independent Current Functional Impairments (Reported) Functional Limitations- ADL's careful and slow with dressing , holding objects and using hair dryers PT-OP-C Subjective Start: 04/27/18 15:29 Freq: Status: Active Protocol: Document 06/01/18 11:15 HH (Rec: 06/01/18 12:57 [email or web address]) OP-PT Subjective Patient Comments Patient Comments Pt states she has minimal pain during the weekend and her pain has been decreased over the past week. KT cont to help . She also states she begins to be more aware of her resting posture and cont to do scap retraction more often. Patient Reported Progress Improving PT-OP-F Manual Assessment Start: 04/27/18 15:29 Freq: Status: Active Protocol: Document 04/27/18 14:30 HH (Rec: 04/27/18 15:47 HH [email or web address]) Manual Assessments Soft Tissue Assessment Soft Tissue Mobility Assessment Tenderness at R upper trap, middle deltoid and infraspinatus PT-OP-K Range of Motion Start: 04/27/18 15:29 Freq: Status: Active Protocol: Document 04/27/18 14:30 HH (Rec: 04/27/18 15:47 HH [email or web address]) Shoulder Goniometric Range of Motion Shoulder Measured in Degrees Right Passive Shoulder ROM WFL Yes Testing Position Supine Flexion 180 Extension 60 Abduction 180 External Rotation at 90 degrees 90 Abduction Internal Rotation 80 Right Active Shoulder ROM WFL Yes Testing Position Standing Flexion 180 Extension 50 Abduction 180 External Rotation at 90 degrees 80 Abduction Internal Rotation 70 PT-OP-L Special Tests Start: 04/27/18 15:29 Freq: Status: Active Protocol: Document 04/27/18 14:30 HH (Rec: 04/27/18 15:47 HH [email or web address]) Special Tests Shoulder Special Tests Elevation Impingement Test Results +ve Comments Painful arc most painful at 90 degrees shoulder flexion and abduction . Drop Arm Rotator Cuff Test Results +ve Comments unable to hold >10 secs at 90 degrees with elbow extension Empty Can Test Results +ve Comments unable to hold >10 secs PT-OP-M Strength Start: 04/27/18 15:29 Freq: Status: Active Protocol: Document 04/27/18 14:30 HH (Rec: 04/27/18 16:04 HH [email or web address]) Shoulder Strength Shoulder Manual Muscle Testing Right Flexion 3 Fair Extension 4- Good- Abduction (C5) 3 Fair Adduction 4- Good- External Rotation 3 Fair Internal Rotation 3 Fair PT-OP-Q Treatments Start: 04/27/18 15:29 Freq: Status: Active Protocol: Document 06/01/18 11:15 HH (Rec: 06/01/18 12:57 HH [email or web address]) Therapeutic Exercises Prone Exercises scapular retraction Prone Exercise Name R scap retraction Equipment Used green band Reps/Minutes 15 secs hold x 5 reps x 3 sets Sitting Exercises seated thoracic extension Equipment Used against back of chair Reps/Minutes 10 x 3 seated scap depression Sitting Exercise Name seated position Reps/Minutes 8 x 2 Standing Exercises AAROM flexion with hip hinge Equipment Used edge of table Reps/Minutes 10 x2 Manual Therapy Treatment Soft Tissue Mobilization R pecs, upper trap Mobilization Type Cross-Friction Sustained Pressure Trigger Point Release Intensity/Depth Moderate Body Position Supine active release at R RTC Body Location R RTC and R UT Mobilization Type Trigger Point Release Intensity/Depth Moderate Body Position Supine Taping 1 Body Location R shoulder Type of Tape KT tape Comments along with LT and mid trap fiber and superior inferior assistance at GH joint. Manual Techniques mobilization with movements Type assisted scap rotation with shoulder flexion Reps/Duration 10 x 2 PT-OP-T Assessment and Plan Start: 04/27/18 15:29 Freq: Status: Active Protocol: Document 06/01/18 11:15 HH (Rec: 06/01/18 12:57 HH [email or web address]) Physical Therapy Assessment Progress Towards Goals Progress Towards Goals Slow Progress due to Activity Tolerance Slow Progress - Other Progress Comments Pain has decreased to 3-4/10 during the day. Pt reports her sleep has also improved. Pt presents slow rehab progress due to other factors such as househould duties with lifting and cleaning which are resistive work for her R shoulder. However, pt has shown increase awareness of her postural alignment. Assessment Summary Assessment Pt has shown slow rehab progress primarily due to her daily activities which involves many overhead movements and resistive work such as cleaning, lifting etc. However, pt reports her symptoms and pain started to get better recently and KT application and increased awareness of facilitating scap retraction. However, pt cont max cues to inhibit upper trap activation during shoulder movements today. Cont therapy to address overall scapular strength and thoracic mobility . Physical Therapy Plan Next Visit Focus/Plan Next Note Type Treatment Note Next Visit Plan Reassess pain with HEP and KT tape, progress scapular mobility and strengthening ex NM re-ed on R RTC gravity assisted ROM exercise thoracic mobility ex KT application.
--- NOTE | 2018-06-03 17:50 | PT.OTN ---
Current Diagnoses Other specific arthropathies, not elsewhere classified, right shoulder (06/03/18) Unspecified rotator cuff tear or rupture of right shoulder, not specified as traumatic (06/03/18) Physical Therapy Treatment Note PT-OP-A Visit Information Start: 04/27/18 15:29 Freq: Status: Active Protocol: Document 06/03/18 16:45 HH (Rec: 06/03/18 17:50 HH [email or web address]) Out-Patient Physical Therapy Visit Information Visit Information Visit Type Treatment Note Visit Start Time 16:45 Visit Stop Time 17:30 Total Visit Minutes 45 Visit Number 9 Number of LONG TERM Visits 0 PT-OP-B Current Condition Start: 04/27/18 15:29 Freq: Status: Active Protocol: Document 04/27/18 14:30 HH (Rec: 04/27/18 15:47 HH [email or web address]) Current Condition History of Current Condition Onset Date 2017 Current Complaints R RTC tear History of Current Condition Pt c/o R shoulder pain 4-10/25 since 4 months ago and was dx with R RTC tear from MRI. Pt states My doctor told me this is an old RTC tear so i recommend to get physical therapy instead of surgical approach. MD told me there is some muscle atrophy for the rest of the RTC. Pt also reports my ROM is pretty good at this point but i have difficulty lifting my coffee cup, using asian studies program chair and driving for long distance. Pt c/o pain worsens during shoulder flexion and abduction at 90 degrees. Prior Treatments and Tests pt received physical therapy before but it did not help her symptoms. Treatment Goals Patient/Caregiver Goals To strengthen overall shoulder muscles To be able to lift her coffee cup without pain To be able to use asian studies program chair without pain To be able to drive for long distance without pain Prior Functional Status Baseline Function- ADL's Independent Baseline Function- Mobility Independent Baseline Function- Work/School independent Baseline Function- Recreation/Hobbies independent Current Functional Impairments (Reported) Functional Limitations- ADL's careful and slow with dressing , holding objects and using hair dryers PT-OP-C Subjective Start: 04/27/18 15:29 Freq: Status: Active Protocol: Document 06/03/18 16:45 HH (Rec: 06/03/18 17:50 HH [email or web address]) OP-PT Subjective Patient Comments Patient Comments Pt reports of soreness after last session. Patient Reported Progress Improving PT-OP-F Manual Assessment Start: 04/27/18 15:29 Freq: Status: Active Protocol: Document 04/27/18 14:30 HH (Rec: 04/27/18 15:47 [email or web address]) Manual Assessments Soft Tissue Assessment Soft Tissue Mobility Assessment Tenderness at R upper trap, middle deltoid and infraspinatus PT-OP-K Range of Motion Start: 04/27/18 15:29 Freq: Status: Active Protocol: Document 04/27/18 14:30 HH (Rec: 04/27/18 15:47 [email or web address]) Shoulder Goniometric Range of Motion Shoulder Measured in Degrees Right Passive Shoulder ROM WFL Yes Testing Position Supine Flexion 180 Extension 60 Abduction 180 External Rotation at 90 degrees 90 Abduction Internal Rotation 80 Right Active Shoulder ROM WFL Yes Testing Position Standing Flexion 180 Extension 50 Abduction 180 External Rotation at 90 degrees 80 Abduction Internal Rotation 70 PT-OP-L Special Tests Start: 04/27/18 15:29 Freq: Status: Active Protocol: Document 04/27/18 14:30 HH (Rec: 04/27/18 15:47 [email or web address]) Special Tests Shoulder Special Tests Elevation Impingement Test Results +ve Comments Painful arc most painful at 90 degrees shoulder flexion and abduction . Drop Arm Rotator Cuff Test Results +ve Comments unable to hold >10 secs at 90 degrees with elbow extension Empty Can Test Results +ve Comments unable to hold >10 secs PT-OP-M Strength Start: 04/27/18 15:29 Freq: Status: Active Protocol: Document 04/27/18 14:30 HH (Rec: 04/27/18 16:04 [email or web address]) Shoulder Strength Shoulder Manual Muscle Testing Right Flexion 3 Fair Extension 4- Good- Abduction (C5) 3 Fair Adduction 4- Good- External Rotation 3 Fair Internal Rotation 3 Fair PT-OP-Q Treatments Start: 04/27/18 15:29 Freq: Status: Active Protocol: Document 06/03/18 16:45 HH (Rec: 06/03/18 17:50 [email or web address]) Therapeutic Exercises Supine Exercises thoracic extension with foam roller Equipment Used foam roller Reps/Minutes 8 x 3 Prone Exercises prone R UE ER Side right Comments with R UE extension prone R scap retraction Side right Comments with R UE extension scapular retraction Prone Exercise Name R scap retraction Equipment Used green band Reps/Minutes 15 secs hold x 5 reps x 3 sets Sitting Exercises seated thoracic extension Equipment Used against back of chair Reps/Minutes 10 x 3 Manual Therapy Treatment Soft Tissue Mobilization R pecs, upper trap Mobilization Type Cross-Friction Sustained Pressure Trigger Point Release Intensity/Depth Moderate Body Position Supine active release at R RTC Body Location R RTC and R UT Mobilization Type Trigger Point Release Intensity/Depth Moderate Body Position Supine Joint Mobilizations AC joint gapping Grade II Body Position Sitting GH posterior glide Joint GH joint Grade II Body Position Supine PT-OP-T Assessment and Plan Start: 04/27/18 15:29 Freq: Status: Active Protocol: Document 06/03/18 16:45 HH (Rec: 06/03/18 17:50 HH [email or web address]) Physical Therapy Assessment Assessment Summary Assessment Pt reports soreness at deltoid region since last session. Pt reports reduced pain during OH movements with retracted scap and external rotated R UE (ie. prone T with thumb up) Educated pt to cont focus on thoracic extension and scap retraction to increase subacromial space. Physical Therapy Plan Next Visit Focus/Plan Next Note Type Treatment Note Next Visit Plan Reassess HEP and Kt tape cont scap retraction with OH movements as papo and thoracic ex gravity eliminated ex as papo
--- NOTE | 2018-06-08 13:11 | PT.OTN ---
Current Diagnoses Other specific arthropathies, not elsewhere classified, right shoulder (06/08/18) Unspecified rotator cuff tear or rupture of right shoulder, not specified as traumatic (06/08/18) Physical Therapy Treatment Note PT-OP-A Visit Information Start: 04/27/18 15:29 Freq: Status: Active Protocol: Document 06/08/18 11:15 HH (Rec: 06/08/18 13:11 HH [email or web address]) Out-Patient Physical Therapy Visit Information Visit Information Visit Type Treatment Note Visit Start Time 11:15 Visit Stop Time 12:00 Total Visit Minutes 45 Visit Number 10 Number of WORKER'S COMPENSATION CLAIMS EXAMINER Visits 0 PT-OP-B Current Condition Start: 04/27/18 15:29 Freq: Status: Active Protocol: Document 04/27/18 14:30 HH (Rec: 04/27/18 15:47 HH [email or web address]) Current Condition History of Current Condition Onset Date 2017 Current Complaints R RTC tear History of Current Condition Pt c/o R shoulder pain 4-10/25 since 4 months ago and was dx with R RTC tear from MRI. Pt states My doctor told me this is an old RTC tear so i recommend to get physical therapy instead of surgical approach. told me there is some muscle atrophy for the rest of the RTC. Pt also reports my ROM is pretty good at this point but i have difficulty lifting my coffee cup, using hairspring staker and driving for long distance. Pt c/o pain worsens during shoulder flexion and abduction at 90 degrees. Prior Treatments and Tests pt received physical therapy before but it did not help her symptoms. Treatment Goals Patient/Caregiver Goals To strengthen overall shoulder muscles To be able to lift her coffee cup without pain To be able to use hydraulic chair assembler without pain To be able to drive for long distance without pain Prior Functional Status Baseline Function- ADL's Independent Baseline Function- Mobility Independent Baseline Function- Work/School independent Baseline Function- Recreation/Hobbies independent Current Functional Impairments (Reported) Functional Limitations- ADL's careful and slow with dressing , holding objects and using hair dryers PT-OP-C Subjective Start: 04/27/18 15:29 Freq: Status: Active Protocol: Document 06/08/18 11:15 HH (Rec: 06/08/18 13:11 HH [email or web address]) OP-PT Subjective Patient Comments Patient Comments Pt cont reports soreness of R shoulder. Pt also states i dont want to do so much exercise today because i didnt sleep well last night due to a personal bad news. Patient Reported Progress Same PT-OP-F Manual Assessment Start: 04/27/18 15:29 Freq: Status: Active Protocol: Document 04/27/18 14:30 HH (Rec: 04/27/18 15:47 [email or web address]) Manual Assessments Soft Tissue Assessment Soft Tissue Mobility Assessment Tenderness at R upper trap, middle deltoid and infraspinatus PT-OP-K Range of Motion Start: 04/27/18 15:29 Freq: Status: Active Protocol: Document 04/27/18 14:30 HH (Rec: 04/27/18 15:47 [email or web address]) Shoulder Goniometric Range of Motion Shoulder Measured in Degrees Right Passive Shoulder ROM WFL Yes Testing Position Supine Flexion 180 Extension 60 Abduction 180 External Rotation at 90 degrees 90 Abduction Internal Rotation 80 Right Active Shoulder ROM WFL Yes Testing Position Standing Flexion 180 Extension 50 Abduction 180 External Rotation at 90 degrees 80 Abduction Internal Rotation 70 PT-OP-L Special Tests Start: 04/27/18 15:29 Freq: Status: Active Protocol: Document 04/27/18 14:30 HH (Rec: 04/27/18 15:47 [email or web address]) Special Tests Shoulder Special Tests Elevation Impingement Test Results +ve Comments Painful arc most painful at 90 degrees shoulder flexion and abduction . Drop Arm Rotator Cuff Test Results +ve Comments unable to hold >10 secs at 90 degrees with elbow extension Empty Can Test Results +ve Comments unable to hold >10 secs PT-OP-M Strength Start: 04/27/18 15:29 Freq: Status: Active Protocol: Document 04/27/18 14:30 HH (Rec: 04/27/18 16:04 [email or web address]) Shoulder Strength Shoulder Manual Muscle Testing Right Flexion 3 Fair Extension 4- Good- Abduction (C5) 3 Fair Adduction 4- Good- External Rotation 3 Fair Internal Rotation 3 Fair PT-OP-Q Treatments Start: 04/27/18 15:29 Freq: Status: Active Protocol: Document 06/08/18 11:15 HH (Rec: 06/08/18 13:11 HH [email or web address]) Therapeutic Exercises Supine Exercises shoulder flexion Supine Exercise Name from 90 to 180 Comments gravity assisted Prone Exercises supine against vertical foam roller Prone Exercise Name butter fly abduction and flexion Comments gravity eliminated shoulder flexion prone R scap retraction Side right Comments with R UE extension scapular retraction Prone Exercise Name R scap retraction Equipment Used green band Reps/Minutes 15 secs hold x 5 reps x 3 sets Sitting Exercises seated scap depression Sitting Exercise Name seated position Reps/Minutes 8 x 2 Manual Therapy Treatment Soft Tissue Mobilization R pecs, upper trap Mobilization Type Cross-Friction Sustained Pressure Trigger Point Release Intensity/Depth Moderate Body Position Supine Joint Mobilizations GH posterior glide Joint GH joint Grade II Body Position Supine PT-OP-T Assessment and Plan Start: 04/27/18 15:29 Freq: Status: Active Protocol: Document 06/08/18 11:15 (Rec: 06/08/18 13:11 [email or web address]) Physical Therapy Assessment Assessment Summary Assessment Pt started gravity assisted therex today and denies pain in supine position from 90 to 180. But increased pain from 0 to 30 degrees due to longer lever arm. Pt is instructed to replace this 90-180 supine flexion ex with AAROM cane ex. Discussed with pt regarding D /C planning. Pt has been plateau for rehab progress but educated pt to cont focus on moblity and strengthening. possible d/c in 2 weeks. Physical Therapy Plan Next Visit Focus/Plan Next Note Type Treatment Note Next Visit Plan Reassess HEP supine 90-180 flexion and apply Kt tape as needed cont scap retraction with OH movements as papo and thoracic ex gravity assisted / eliminated ex gravity eliminated ex as papo
--- NOTE | 2018-06-10 17:08 | PT.OTN ---
Current Diagnoses Other specific arthropathies, not elsewhere classified, right shoulder (06/10/18) Unspecified rotator cuff tear or rupture of right shoulder, not specified as traumatic (06/10/18) Physical Therapy Treatment Note PT-OP-A Visit Information Start: 04/27/18 15:29 Freq: Status: Active Protocol: Document 06/10/18 15:15 HH (Rec: 06/10/18 17:08 [email or web address]) Out-Patient Physical Therapy Visit Information Visit Information Visit Type Treatment Note Visit Start Time 15:15 Visit Stop Time 16:00 Total Visit Minutes 45 Visit Number 11 Number of INDUSTRIAL REGISTERED NURSE Visits 0 PT-OP-B Current Condition Start: 04/27/18 15:29 Freq: Status: Active Protocol: Document 04/27/18 14:30 HH (Rec: 04/27/18 15:47 HH [email or web address]) Current Condition History of Current Condition Onset Date 2017 Current Complaints R RTC tear History of Current Condition Pt c/o R shoulder pain 4-10/25 since 4 months ago and was dx with R RTC tear from MRI. Pt states My doctor told me this is an old RTC tear so i recommend to get physical therapy instead of surgical approach. told me there is some muscle atrophy for the rest of the RTC. Pt also reports my ROM is pretty good at this point but i have difficulty lifting my coffee cup, using chair springer and driving for long distance. Pt c/o pain worsens during shoulder flexion and abduction at 90 degrees. Prior Treatments and Tests pt received physical therapy before but it did not help her symptoms. Treatment Goals Patient/Caregiver Goals To strengthen overall shoulder muscles To be able to lift her coffee cup without pain To be able to use hairspring fabrication supervisor without pain To be able to drive for long distance without pain Prior Functional Status Baseline Function- ADL's Independent Baseline Function- Mobility Independent Baseline Function- Work/School independent Baseline Function- Recreation/Hobbies independent Current Functional Impairments (Reported) Functional Limitations- ADL's careful and slow with dressing , holding objects and using hair dryers PT-OP-C Subjective Start: 04/27/18 15:29 Freq: Status: Active Protocol: Document 06/10/18 15:15 HH (Rec: 06/10/18 17:08 [email or web address]) OP-PT Subjective Patient Comments Patient Comments Pt states I actually felt very good since last visit. I dont have too much pain yesterday and today. Patient Reported Progress Improving PT-OP-F Manual Assessment Start: 04/27/18 15:29 Freq: Status: Active Protocol: Document 04/27/18 14:30 HH (Rec: 04/27/18 15:47 [email or web address]) Manual Assessments Soft Tissue Assessment Soft Tissue Mobility Assessment Tenderness at R upper trap, middle deltoid and infraspinatus PT-OP-K Range of Motion Start: 04/27/18 15:29 Freq: Status: Active Protocol: Document 04/27/18 14:30 HH (Rec: 04/27/18 15:47 [email or web address]) Shoulder Goniometric Range of Motion Shoulder Measured in Degrees Right Passive Shoulder ROM WFL Yes Testing Position Supine Flexion 180 Extension 60 Abduction 180 External Rotation at 90 degrees 90 Abduction Internal Rotation 80 Right Active Shoulder ROM WFL Yes Testing Position Standing Flexion 180 Extension 50 Abduction 180 External Rotation at 90 degrees 80 Abduction Internal Rotation 70 PT-OP-L Special Tests Start: 04/27/18 15:29 Freq: Status: Active Protocol: Document 04/27/18 14:30 HH (Rec: 04/27/18 15:47 [email or web address]) Special Tests Shoulder Special Tests Elevation Impingement Test Results +ve Comments Painful arc most painful at 90 degrees shoulder flexion and abduction . Drop Arm Rotator Cuff Test Results +ve Comments unable to hold >10 secs at 90 degrees with elbow extension Empty Can Test Results +ve Comments unable to hold >10 secs PT-OP-M Strength Start: 04/27/18 15:29 Freq: Status: Active Protocol: Document 04/27/18 14:30 HH (Rec: 04/27/18 16:04 [email or web address]) Shoulder Strength Shoulder Manual Muscle Testing Right Flexion 3 Fair Extension 4- Good- Abduction (C5) 3 Fair Adduction 4- Good- External Rotation 3 Fair Internal Rotation 3 Fair PT-OP-Q Treatments Start: 04/27/18 15:29 Freq: Status: Active Protocol: Document 06/10/18 15:15 HH (Rec: 06/10/18 17:08 [email or web address]) Therapeutic Exercises Supine Exercises shoulder flexion Supine Exercise Name from 90 to 180 Comments gravity assisted thoracic extension with foam roller Equipment Used with towel Reps/Minutes 8 x3 Comments for HEP practice Prone Exercises supine against vertical foam roller Prone Exercise Name butter fly abduction and flexion Equipment Used towel Comments gravity eliminated shoulder flexion prone R scap retraction Side bilateral Comments with R UE extension Standing Exercises Iso ER/IR/Abd/add Side right Resistance Isometric Comments HEP practice Manual Therapy Treatment Soft Tissue Mobilization R pecs, upper trap Mobilization Type Cross-Friction Sustained Pressure Trigger Point Release Intensity/Depth Moderate Body Position Supine Joint Mobilizations PA mob Joint on T1-T5 Direction Pa Grade III Body Position Prone Comments PA glide with cervical and thoracic extension PT-OP-T Assessment and Plan Start: 04/27/18 15:29 Freq: Status: Active Protocol: Document 06/10/18 15:15 HH (Rec: 06/10/18 17:08 [email or web address]) Physical Therapy Assessment Assessment Summary Assessment Pt states I felt quite good since last visit. Pt seems to progress but slowly. Today's tx focused on thoracic mobility and RTC isometric strengthening. Pt denies pain and soreness and satisfied with her progress. Physical Therapy Plan Next Visit Focus/Plan Next Note Type Treatment Note Next Visit Plan Reassess HEP Cont to focus on improving thoracic mob supine 90-180 flexion and apply Kt tape as needed cont scap retraction with OH movements as papo and thoracic ex gravity assisted / eliminated ex gravity eliminated ex as papo
--- NOTE | 2018-06-15 12:39 | PT.OTN ---
Current Diagnoses Other specific arthropathies, not elsewhere classified, right shoulder (06/15/18) Unspecified rotator cuff tear or rupture of right shoulder, not specified as traumatic (06/15/18) Physical Therapy Treatment Note PT-OP-A Visit Information Start: 04/27/18 15:29 Freq: Status: Active Protocol: Document 06/15/18 11:15 HH (Rec: 06/15/18 12:39 [email or web address]) Out-Patient Physical Therapy Visit Information Visit Information Visit Type Treatment Note Visit Start Time 11:15 Visit Stop Time 12:00 Total Visit Minutes 45 Visit Number 12 Number of TREASURY AGENT Visits 0 PT-OP-B Current Condition Start: 04/27/18 15:29 Freq: Status: Active Protocol: Document 04/27/18 14:30 HH (Rec: 04/27/18 15:47 HH [email or web address]) Current Condition History of Current Condition Onset Date 2017 Current Complaints R RTC tear History of Current Condition Pt c/o R shoulder pain 4-10/25 since 4 months ago and was dx with R RTC tear from MRI. Pt states My doctor told me this is an old RTC tear so i recommend to get physical therapy instead of surgical approach. told me there is some muscle atrophy for the rest of the RTC. Pt also reports my ROM is pretty good at this point but i have difficulty lifting my coffee cup, using behavioral science chair and driving for long distance. Pt c/o pain worsens during shoulder flexion and abduction at 90 degrees. Prior Treatments and Tests pt received physical therapy before but it did not help her symptoms. Treatment Goals Patient/Caregiver Goals To strengthen overall shoulder muscles To be able to lift her coffee cup without pain To be able to use engineering department chair without pain To be able to drive for long distance without pain Prior Functional Status Baseline Function- ADL's Independent Baseline Function- Mobility Independent Baseline Function- Work/School independent Baseline Function- Recreation/Hobbies independent Current Functional Impairments (Reported) Functional Limitations- ADL's careful and slow with dressing , holding objects and using hair dryers PT-OP-C Subjective Start: 04/27/18 15:29 Freq: Status: Active Protocol: Document 06/15/18 11:15 HH (Rec: 06/15/18 12:39 [email or web address]) OP-PT Subjective Patient Comments Patient Comments Pt states I think i hurt my shoulder on last thursday after swinging my bedsheet and it was very painful for 2 days. I really have to be careful of what i am doing. However, i was feeling pretty good on and thursday after last visit. Patient Reported Progress Worse PT-OP-F Manual Assessment Start: 04/27/18 15:29 Freq: Status: Active Protocol: Document 04/27/18 14:30 HH (Rec: 04/27/18 15:47 [email or web address]) Manual Assessments Soft Tissue Assessment Soft Tissue Mobility Assessment Tenderness at R upper trap, middle deltoid and infraspinatus PT-OP-K Range of Motion Start: 04/27/18 15:29 Freq: Status: Active Protocol: Document 04/27/18 14:30 HH (Rec: 04/27/18 15:47 [email or web address]) Shoulder Goniometric Range of Motion Shoulder Measured in Degrees Right Passive Shoulder ROM WFL Yes Testing Position Supine Flexion 180 Extension 60 Abduction 180 External Rotation at 90 degrees 90 Abduction Internal Rotation 80 Right Active Shoulder ROM WFL Yes Testing Position Standing Flexion 180 Extension 50 Abduction 180 External Rotation at 90 degrees 80 Abduction Internal Rotation 70 PT-OP-L Special Tests Start: 04/27/18 15:29 Freq: Status: Active Protocol: Document 04/27/18 14:30 HH (Rec: 04/27/18 15:47 [email or web address]) Special Tests Shoulder Special Tests Elevation Impingement Test Results +ve Comments Painful arc most painful at 90 degrees shoulder flexion and abduction . Drop Arm Rotator Cuff Test Results +ve Comments unable to hold >10 secs at 90 degrees with elbow extension Empty Can Test Results +ve Comments unable to hold >10 secs PT-OP-M Strength Start: 04/27/18 15:29 Freq: Status: Active Protocol: Document 04/27/18 14:30 HH (Rec: 04/27/18 16:04 HH [email or web address]) Shoulder Strength Shoulder Manual Muscle Testing Right Flexion 3 Fair Extension 4- Good- Abduction (C5) 3 Fair Adduction 4- Good- External Rotation 3 Fair Internal Rotation 3 Fair PT-OP-Q Treatments Start: 04/27/18 15:29 Freq: Status: Active Protocol: Document 06/15/18 11:15 HH (Rec: 06/15/18 12:39 HH [email or web address]) Therapeutic Exercises Supine Exercises thoracic extension with foam roller Equipment Used with towel Reps/Minutes 8 x3 Comments for HEP practice Prone Exercises supine against vertical foam roller Prone Exercise Name butter fly abduction and flexion Equipment Used towel Comments gravity eliminated shoulder flexion scapular retraction Prone Exercise Name R scap retraction Equipment Used green band Reps/Minutes 15 secs hold x 5 reps x 3 sets Manual Therapy Treatment Soft Tissue Mobilization active release at R RTC Body Location R RTC and R UT Mobilization Type Trigger Point Release Intensity/Depth Moderate Body Position Supine Comments increased tenderness noted at infraspinatus Joint Mobilizations PA mob Joint on T1-T5 Direction Pa Grade III Body Position Sitting Comments PA glide with cervical and thoracic extension GH posterior glide Joint GH joint Grade II Body Position Supine PT-OP-T Assessment and Plan Start: 04/27/18 15:29 Freq: Status: Active Protocol: Document 06/15/18 11:15 HH (Rec: 06/15/18 12:39 HH [email or web address]) Physical Therapy Assessment Assessment Summary Assessment Increased tenderness noted at R infraspinatus but pt's ROM remained intact. Pt states My pain has been there, however, I still have my ROM and i am able to lift my cup and cooking pot without pain lately. So i understand there' s some progress but slow. pt agreeed to be d/c with HEP after next visit and understand to cont strengthen and maintain her current ROM. Physical Therapy Plan Next Visit Focus/Plan Next Note Type Discharge Summary Next Visit Plan Reassess HEP again before D/C include t spine mob gravity eliminated ex rom ex scap strengthening ex
--- NOTE | 2018-06-17 17:00 | PT.OTN ---
Current Diagnoses Other specific arthropathies, not elsewhere classified, right shoulder (06/17/18) Unspecified rotator cuff tear or rupture of right shoulder, not specified as traumatic (06/17/18) Physical Therapy Treatment Note PT-OP-A Visit Information Start: 04/27/18 15:29 Freq: Status: Active Protocol: Document 06/17/18 16:00 HH (Rec: 06/17/18 17:00 HH [email or web address]) Out-Patient Physical Therapy Visit Information Visit Information Visit Type Discharge Summary Visit Start Time 16:00 Visit Stop Time 16:45 Total Visit Minutes 45 Visit Number 13 Number of AUTOMATION LEAD Visits 0 PT-OP-B Current Condition Start: 04/27/18 15:29 Freq: Status: Active Protocol: Document 04/27/18 14:30 HH (Rec: 04/27/18 15:47 HH [email or web address]) Current Condition History of Current Condition Onset Date 2017 Current Complaints R RTC tear History of Current Condition Pt c/o R shoulder pain 4-10 since 4 months ago and was dx with R RTC tear from MRI. Pt states My doctor told me this is an old RTC tear so i recommend to get physical therapy instead of surgical approach. told me there is some muscle atrophy for the rest of the RTC. Pt also reports my ROM is pretty good at this point but i have difficulty lifting my coffee cup, using chemistry department chair and driving for long distance. Pt c/o pain worsens during shoulder flexion and abduction at 90 degrees. Prior Treatments and Tests pt received physical therapy before but it did not help her symptoms. Treatment Goals Patient/Caregiver Goals To strengthen overall shoulder muscles To be able to lift her coffee cup without pain To be able to use division chair without pain To be able to drive for long distance without pain Prior Functional Status Baseline Function- ADL's Independent Baseline Function- Mobility Independent Baseline Function- Work/School independent Baseline Function- Recreation/Hobbies independent Current Functional Impairments (Reported) Functional Limitations- ADL's careful and slow with dressing , holding objects and using hair dryers PT-OP-C Subjective Start: 04/27/18 15:29 Freq: Status: Active Protocol: Document 06/17/18 16:00 HH (Rec: 06/17/18 17:00 HH [email or web address]) OP-PT Subjective Patient Comments Patient Comments 'i've been able to hold my cup without pain and i've been doing my exercise without problems. Patient Reported Progress Improving PT-OP-F Manual Assessment Start: 04/27/18 15:29 Freq: Status: Active Protocol: Document 04/27/18 14:30 HH (Rec: 04/27/18 15:47 [email or web address]) Manual Assessments Soft Tissue Assessment Soft Tissue Mobility Assessment Tenderness at R upper trap, middle deltoid and infraspinatus PT-OP-K Range of Motion Start: 04/27/18 15:29 Freq: Status: Active Protocol: Document 04/27/18 14:30 HH (Rec: 04/27/18 15:47 [email or web address]) Shoulder Goniometric Range of Motion Shoulder Measured in Degrees Right Passive Shoulder ROM WFL Yes Testing Position Supine Flexion 180 Extension 60 Abduction 180 External Rotation at 90 degrees 90 Abduction Internal Rotation 80 Right Active Shoulder ROM WFL Yes Testing Position Standing Flexion 180 Extension 50 Abduction 180 External Rotation at 90 degrees 80 Abduction Internal Rotation 70 PT-OP-L Special Tests Start: 04/27/18 15:29 Freq: Status: Active Protocol: Document 04/27/18 14:30 HH (Rec: 04/27/18 15:47 [email or web address]) Special Tests Shoulder Special Tests Elevation Impingement Test Results +ve Comments Painful arc most painful at 90 degrees shoulder flexion and abduction . Drop Arm Rotator Cuff Test Results +ve Comments unable to hold >10 secs at 90 degrees with elbow extension Empty Can Test Results +ve Comments unable to hold >10 secs PT-OP-M Strength Start: 04/27/18 15:29 Freq: Status: Active Protocol: Document 04/27/18 14:30 HH (Rec: 04/27/18 16:04 [email or web address]) Shoulder Strength Shoulder Manual Muscle Testing Right Flexion 3 Fair Extension 4- Good- Abduction (C5) 3 Fair Adduction 4- Good- External Rotation 3 Fair Internal Rotation 3 Fair PT-OP-Q Treatments Start: 04/27/18 15:29 Freq: Status: Active Protocol: Document 06/17/18 16:00 HH (Rec: 06/17/18 17:00 [email or web address]) Therapeutic Exercises Supine Exercises shoulder flexion Supine Exercise Name 0-180 Comments gravity assisted thoracic extension with foam roller Equipment Used with towel Reps/Minutes 8 x3 Comments for HEP practice Prone Exercises supine against vertical foam roller Prone Exercise Name butter fly abduction and flexion Equipment Used towel Comments gravity eliminated shoulder flexion scapular retraction Prone Exercise Name R scap retraction Equipment Used green band Reps/Minutes 15 secs hold x 5 reps x 3 sets Sidelying Exercises R sidelying open book Comments with T spine rotation Manual Therapy Treatment Soft Tissue Mobilization R pecs, upper trap Mobilization Type Cross-Friction Sustained Pressure Trigger Point Release Intensity/Depth Moderate Body Position Supine active release at R RTC Body Location R RTC and R UT Mobilization Type Trigger Point Release Intensity/Depth Moderate Body Position Supine Comments increased tenderness noted at infraspinatus PT-OP-T Assessment and Plan Start: 04/27/18 15:29 Freq: Status: Active Protocol: Document 06/17/18 16:00 (Rec: 06/17/18 17:00 [email or web address]) Physical Therapy Assessment Goals Three Impairment ROM Warehouse Receiving Clerk Goal (LTG) Goal met no pain at AROM with flexion and abduction at 90 degrees. Two Impairment ADLs Warehouse Receiving Clerk Goal (LTG) Goal met; Able to hold coffee cups without pain One Impairment strength Warehouse Receiving Clerk Goal (LTG) Goal met Pt demonstrates 4 MMT grossly for R shoulder Progress Towards Goals Progress Towards Goals Goals Met Assessment Summary Assessment Pt presents ROM strength 4/5 and pain (pain free during Active full ROM) improvements since IE. today's tx focused on review of HEP. Pt is now able to supine shoulder flexion from 0 to 180. D/C from PT today. Physical Therapy Plan Discharge Physical Therapy Discharge Reasons Goals Met Discharge Comments Goals met
== END 2018-06-17 16:38 ==
LOC: PHYS 16:00
PROVIDERS: PCP Student in an Organized Health Care Education/Training Program; Visit Provider Student in an Organized Health Care Education/Training Program
DX: M75.101 Unspecified rotator cuff tear or rupture of right shoulder, not specified as traumatic (principal); M12.811 Other specific arthropathies, not elsewhere classified, right shoulder
CPT/HCPCS: 64550; 97032; 97110; 97112; 97140; 97161

== ENCOUNTER → 2018-06-22 10:18 | Outpatient (CLI) | payer MEDICARE, OTHER, SELFPAY | PROVIDERS: PCP Student in an Organized Health Care Education/Training Program; Visit Provider Physician Assistant | DX: N39.0 Urinary tract infection, site not specified (principal) | CPT/HCPCS: 87077; 87086; 87186 ==

== ENCOUNTER → 2018-10-07 11:11 | Outpatient (CLI) | payer MEDICARE, OTHER, SELFPAY ==
[2018-10-07 12:33] LABS: Alanine Aminotransferase 18 IU/L (9-52); Albumin 4.3 g/dL (3.5-5.0); Albumin Globulin Ratio 1.7 (1.0-2.8); Alkaline Phosphatase 55 U/L (38-126); Aspartate Aminotransferase 26 IU/L (14-36); BUN Creatinine Ratio 23.3 (6-22); Bilirubin Total 0.5 mg/dL (0.2-1.3); Blood Urea Nitrogen 21 mg/dL (7-17); Calcium 9.6 mg/dL (8.4-10.2); Carbon Dioxide 29 mmol/L (22-32); Chloride 101 mmol/L (98-107); Cholesterol 213 mg/dL (140-199); Estimated Glomerular Filt Rate > 60.0 mL/min (>60); Globulin 2.6 g/dL (1.7-4.1); Glucose 126 mg/dL (80-110); HDL Cholesterol 56 mg/dL (40-60); HEMOLYSIS < 15 (0-50); LDL Cholesterol Calculated 84 mg/dL (<100); Potassium 4.1 mmol/L (3.4-5.1); Sodium 138 mmol/L (137-145); Total Protein 6.9 g/dL (6.3-8.2); Triglycerides 365 mg/dL (35-150)
[2018-10-07 12:48] LABS: Vitamin D 25 Hydroxy (D3) 18.8 ng/mL (30.0-100.0)
== END ==
PROVIDERS: PCP Student in an Organized Health Care Education/Training Program; Visit Provider Student in an Organized Health Care Education/Training Program
DX: E55.9 Vitamin D deficiency, unspecified (principal); E78.5 Hyperlipidemia, unspecified; I10 Essential (primary) hypertension; Z79.899 Other long term (current) drug therapy
CPT/HCPCS: 36415; 80053; 80061; 82306

== ENCOUNTER 2020-01-10 13:45 | Outpatient (RCR) | payer MEDICARE, OTHER, SELFPAY ==
--- NOTE | 2019-09-29 18:49 | PT.OIE ---
Current Diagnoses Unspecified rotator cuff tear or rupture of unspecified shoulder, not specified as traumatic (09/29/19) Past Medical History (Last Updated 06/30/19 @ 13:45 by David Maldonado RN) Allergic rhinitis (Chronic 1958) Cataracts, bilateral (Resolved 2009) Chickenpox (Resolved) Chronic back pain (Chronic 1973) Diverticular disease (Chronic 2016) Essential hypertension (Chronic) History of DVT of lower extremity (Resolved 2009) History of pulmonary embolism (Resolved 05/2010) Hyperlipidemia (Chronic) Knee pain, left (Resolved ~2011) roasterman current use of anticoagulant therapy (Acute) Measles (Resolved) Polio (Resolved 1954) Postherpetic neuralgia (Chronic) Pulmonary embolism (Resolved 2013) Skin cancer (Resolved 2013) Substance abuse (Resolved 1959) Vertigo (Chronic Unknown) Past Surgical History (Last Updated 12/17/17 @ 15:39 by Verónica Maldonado LPN) History of section (Resolved 1959) History of section (Resolved 1961) History of section (Resolved 1966) History of lumbar laminectomy (Resolved ~1973) S/P hysterectomy (Resolved 1988) Status post breast reduction (Resolved 1994) Status post cataract surgery (Resolved 2009) Visit Care Team Role Provider Type Francis Benton MD Attending Provider Physician Primary Care Provider Referring Provider Specialty: Internal Medicine Address: [address] [place] [address], [address], [facility] Email: [email or web address] Physical Therapy Initial Evaluation PT-OP-A Visit Information Start: 09/29/19 12:45 Freq: Status: Active Protocol: Document 09/29/19 16:46 MB (Rec: 09/29/19 17:42 MB [id number]) Out-Patient Physical Therapy Visit Information Visit Information Visit Type Initial Evaluation Visit Note Medicare, unlimited visits Visit Start Time 16:46 Visit Stop Time 17:30 Total Visit Minutes 44 Visit Number 1 Evaluation Information Evaluation Date 09/29/19 PT-OP-B Current Condition Start: 09/29/19 12:45 Freq: Status: Active Protocol: Document 09/29/19 16:46 MB (Rec: 09/29/19 17:42 MB [id number]) Current Condition History of Current Condition Onset Date 2018 Current Complaints Right rotator cuff pain History of Current Condition Pt reports insidious right rotator cuff tear in 2018. She states that she did not injure it. She had a MRI. The orthopedist states that it was an old tear. Pt is right handed. Pt has pain in bed and likes to sleep on her side. She does not use cervical support but is interested in learning about better sleeping position . She reports pain when she puts her arms on the wide arm rests of the recliner. She occ walks her dog on her right side. She got better with PT. Three weeks ago, she woke up and the right shoulder pain was back. Now, her right shoulder gets stuck and it pops. Pt reports 6/10 pain in anterior, lateral and posterior right shoulder. 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 INR is WNLs Prior Treatments and Tests PT and her right shoulder pain got better. She thinks that the movement helped. Treatment Goals Patient/Caregiver Goals Pt's goals for PT are to decrease pain and popping. PT-OP-C Subjective Start: 09/29/19 12:45 Freq: Status: Active Protocol: Document 09/29/19 16:46 MB (Rec: 09/29/19 17:42 MB [id number]) OP-PT Subjective Patient Comments Patient Comments See history of current condition. Patient Questionnaires Quick Dash- Upper Extremity Quick Dash UE Impairment 40 to 59% Impaired (Score 40- 59) PT-OP-J Posture/Palpation/Skin Start: 09/29/19 12:45 Freq: Status: Active Protocol: Document 09/29/19 16:46 MB (Rec: 09/29/19 18:48 MB [id number]) Posture Evaluation Comments Posture Comments Standing: forward head, rounded shoulders, Dowager's hump, decreased lumbar lordosis, right shoulder lower and right scapula more protracted and elevation compared to the left (pt is right handed), increased thoracic kyphosis, anterior tilt pelvis and high left iliac crest compared to the right. PT-OP-K Range of Motion Start: 09/29/19 12:45 Freq: Status: Active Protocol: Document 09/29/19 16:46 MB (Rec: 09/29/19 18:48 MB [id number]) Cervical Spine Range of Motion Cervical Spine Active Testing Position Standing Flexion 41 Extension 20 Rotation Left 40 Rotation Right 49 Lateral Flexion Left 10 Lateral Flexion Right 10 Shoulder Goniometric Range of Motion Shoulder Left Shoulder ROM WFL Yes Testing Position Standing Right Passive Shoulder ROM WFL No Testing Position Supine External Rotation at 0 degrees Abduction 90 Internal Rotation 40 Right Active Shoulder ROM WFL Yes Testing Position Standing Internal Rotation Behind Back (text) Normal for dominant hand and reaches to mid scapular area Shoulder ROM Limitations Comments Pt reports right shoulder pain 5/10 with flexion, 6/10 with IR behind back PT-OP-M Strength Start: 09/29/19 12:45 Freq: Status: Active Protocol: Document 09/29/19 16:46 MB (Rec: 09/29/19 18:48 MB [id number]) Shoulder Strength Shoulder Manual Muscle Testing Left Flexion 5 Normal Abduction (C5) 5 Normal External Rotation 5 Normal Internal Rotation 5 Normal Right Comments Deferred d/t pain Elbow/Forearm Strength Elbow and Forearm Manual Muscle Testing Left Flexion (C6) 5 Normal Extension (C7) 5 Normal Pronation 5 Normal Supination 5 Normal Right Flexion (C6) 5 Normal Extension (C7) 5 Normal Pronation 4 Good Supination 4 Good Comments Pt reports 4/10 pain with right supination Wrist Strength Wrist Manual Muscle Testing Left Flexion (C7) 5 Normal Extension (C6) 5 Normal Right Flexion (C7) 5 Normal Extension (C6) 5 Normal PT-OP-Q Treatments Start: 09/29/19 12:45 Freq: Status: Active Protocol: Document 09/29/19 16:46 MB (Rec: 09/29/19 18:48 MB [id number]) Self-Care/Home Management Treatment Education Patient Education Body Mechanics,Posture Caregiver Education Use of towel roll for cervical support in bed, use of pillow in lap or at sides when sitting in recliner to support arms, use of frozen peas, walk dog on the left PT-OP-T Assessment and Plan Start: 09/29/19 12:45 Freq: Status: Active Protocol: Document 09/29/19 16:46 MB (Rec: 09/29/19 18:48 MB [id number]) Physical Therapy Assessment Rehab Potential Rehabilitation Potential Good Evaluation Complexity Number of Personal Factors/Comorbidities 0 Number of Body Systems Impaired 1-2 Clinical Presentation at Evaluation Stable Impairments Impairments Functional Mobility,Pain, Posture,ROM,Soft Tissue Mobility,Strength Goals 4 Fci Goal (LTG) Pt will perform progressive HEP with I including postural, flexibility and strengthening exercises to increase right arm strength and decrease pain by 11/29/2019. LTG Duration 8 weeks Three Fci Goal (LTG) Pt will present with an improved QuickDASH score to reflect no more than 10% impairment to allow return to pain-free IADLs by 11/29/2019. LTG Duration 8 weeks Two Hardware Engineering Manager Goal (LTG) Pt will report an overall 80% improvement in right shoulder pain by 11/29/2019 to allow improved sleep and quality of life. LTG Duration 8 weeks One Hardware Engineering Manager Goal (LTG) Pt will present with right shoulder flexion, abduction, ER and IR strength to at lesat 4/5 by 11/29/2019 to allow improved use of right arm for self-care and walking dog. LTG Duration 8 weeks Assessment Summary Assessment Pt is a pleasant 79 y/o female presenting with right shoulder pain and weakness in setting of old rotator cuff injury. She presents with tenderness over right AC joint and mid delt with palpation. She reports positive findings on MRI in 2018 for insidious tear. She received PT which she said was very helpful and she stopped doing her exercises because her arm got so much better. She will make sure to con't on with right shoulder exercises with this PT course. Pt will benefit from PT to improve strength, flexibility, posture and to decrease pain. PT prognosis is good. Physical Therapy Plan Frequency and Duration Frequency of Treatment 2x/Week Duration of Treatment 8 weeks Plan of Care Start Date 09/29/19 Plan of Care End Date 11/29/19 Therapeutic Interventions Therapeutic Interventions Aquatic Therapy,Canalithic Repositioning,Home Exercise Program,Manual Therapy, Neuromuscular Re-education, Patient/Caregiver Education, Self-Care/Home Management,Soft Tissue Mobilization,Taping, Therapeutic Activities, Therapeutic Exercises Modalities Cold Pack/Ice Massage,Electric Stimulation,Hot Packs, Ultrasound Other Therapeutic Interventions Laser Next Visit Focus/Plan Next Note Type Treatment Note Next Visit Plan Initiate HEP such as scapular retraction, use of racquet ball massage
--- NOTE | 2019-09-29 18:49 | PT.OPPOC ---
Physical, Occupational & Speech Therapy At [facility] Current Diagnoses Unspecified rotator cuff tear or rupture of unspecified shoulder, not specified as traumatic (09/29/19) Visit Care Team Role Provider Type Francis Benton MD Attending Provider Physician Primary Care Provider Referring Provider Specialty: Internal Medicine Address: [address] [place] [address], [address], [address] Email: [email or web address] Plan Of Care PT-OP-T Assessment and Plan Start: 09/29/19 12:45 Freq: Status: Active Protocol: Document 09/29/19 16:46 MB (Rec: 09/29/19 18:48 MB [id number]) Physical Therapy Assessment Rehab Potential Rehabilitation Potential Good Evaluation Complexity Number of Personal Factors/Comorbidities 0 Number of Body Systems Impaired 1-2 Clinical Presentation at Evaluation Stable Impairments Impairments Functional Mobility,Pain, Posture,ROM,Soft Tissue Mobility,Strength Goals 4 Agricultural Extension Officer Goal (LTG) Pt will perform progressive HEP with I including postural, flexibility and strengthening exercises to increase right arm strength and decrease pain by 11/29/2019. LTG Duration 8 weeks Three Care Home Goal (LTG) Pt will present with an improved QuickDASH score to reflect no more than 10% impairment to allow return to pain-free IADLs by 11/29/2019. LTG Duration 8 weeks Two Care Home Goal (LTG) Pt will report an overall 80% improvement in right shoulder pain by 11/29/2019 to allow improved sleep and quality of life. LTG Duration 8 weeks One Care Home Goal (LTG) Pt will present with right shoulder flexion, abduction, ER and IR strength to at lesat 4/5 by 11/29/2019 to allow improved use of right arm for self-care and walking dog. LTG Duration 8 weeks Assessment Summary Assessment Pt is a pleasant 79 y/o female presenting with right shoulder pain and weakness in setting of old rotator cuff injury. She presents with tenderness over right AC joint and mid delt with palpation. She reports positive findings on MRI in 2018 for insidious tear. She received PT which she said was very helpful and she stopped doing her exercises because her arm got so much better. She will make sure to con't on with right shoulder exercises with this PT course. Pt will benefit from PT to improve strength, flexibility, posture and to decrease pain. PT prognosis is good. Physical Therapy Plan Frequency and Duration Frequency of Treatment 2x/Week Duration of Treatment 8 weeks Plan of Care Start Date 09/29/19 Plan of Care End Date 11/29/19 Therapeutic Interventions Therapeutic Interventions Aquatic Therapy,Canalithic Repositioning,Home Exercise Program,Manual Therapy, Neuromuscular Re-education, Patient/Caregiver Education, Self-Care/Home Management,Soft Tissue Mobilization,Taping, Therapeutic Activities, Therapeutic Exercises Modalities Cold Pack/Ice Massage,Electric Stimulation,Hot Packs, Ultrasound Other Therapeutic Interventions Laser Next Visit Focus/Plan Next Note Type Treatment Note Next Visit Plan Initiate HEP such as scapular retraction, use of racquet ball massage Plan of Care Dates Plan of Care Start Date 09/29/19 Plan of Care End Date 11/29/19 Electronically Signed by: Ewa Patino, PT 09/29/19 3097 Please Sign and Return: I have reviewed this Plan of Care and certify that the skilled therapy services above are required to meet the patient?s needs. Physician Signature Date Printed Name and Credentials Clinical Instructor Signature Printed Name and Credentials
--- NOTE | 2019-10-06 17:50 | PT.OTN ---
Current Diagnoses Unspecified rotator cuff tear or rupture of unspecified shoulder, not specified as traumatic (10/06/19) Physical Therapy Treatment Note PT-OP-A Visit Information Start: 09/29/19 12:45 Freq: Status: Active Protocol: Document 10/06/19 16:46 MB (Rec: 10/06/19 17:50 MB [id number]) Out-Patient Physical Therapy Visit Information Visit Information Visit Type Treatment Note Visit Note Medicare, unlimited visits Visit Start Time 16:46 Visit Stop Time 17:40 Total Visit Minutes 54 Visit Number 2 PT-OP-B Current Condition Start: 09/29/19 12:45 Freq: Status: Active Protocol: Document 09/29/19 16:46 MB (Rec: 09/29/19 17:42 MB [id number]) Current Condition History of Current Condition Onset Date 2018 Current Complaints Right rotator cuff pain History of Current Condition Pt reports insidious right rotator cuff tear in 2018. She states that she did not injure it. She had a MRI. The orthopedist states that it was an old tear. Pt is right handed. Pt has pain in bed and likes to sleep on her side. She does not use cervical support but is interested in learning about better sleeping position . She reports pain when she puts her arms on the wide arm rests of the recliner. She occ walks her dog on her right side. She got better with PT. Three weeks ago, she woke up and the right shoulder pain was back. Now, her right shoulder gets stuck and it pops. Pt reports 6/10 pain in anterior, lateral and posterior right shoulder. 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 INR is WNLs Prior Treatments and Tests PT and her right shoulder pain got better. She thinks that the movement helped. Treatment Goals Patient/Caregiver Goals Pt's goals for PT are to decrease pain and popping. PT-OP-C Subjective Start: 09/29/19 12:45 Freq: Status: Active Protocol: Document 10/06/19 16:46 MB (Rec: 10/06/19 17:50 MB [id number]) OP-PT Subjective Patient Comments Patient Comments Pt states that she got a contour pillow. She tried sleeping on her left side with pillow between her arms. She didn't move for a while and then her right arm got stuck and she had to pop it and had severe pain. She took a bath and Ibuprofen and she felt better. PT-OP-J Posture/Palpation/Skin Start: 09/29/19 12:45 Freq: Status: Active Protocol: Document 09/29/19 16:46 MB (Rec: 09/29/19 18:48 MB [id number]) Posture Evaluation Comments Posture Comments Standing: forward head, rounded shoulders, Dowager's hump, decreased lumbar lordosis, right shoulder lower and right scapula more protracted and elevation compared to the left (pt is right handed), increased thoracic kyphosis, anterior tilt pelvis and high left iliac crest compared to the right. PT-OP-K Range of Motion Start: 09/29/19 12:45 Freq: Status: Active Protocol: Document 09/29/19 16:46 MB (Rec: 09/29/19 18:48 MB [id number]) Cervical Spine Range of Motion Cervical Spine Active Testing Position Standing Flexion 41 Extension 20 Rotation Left 40 Rotation Right 49 Lateral Flexion Left 10 Lateral Flexion Right 10 Shoulder Goniometric Range of Motion Shoulder Left Shoulder ROM WFL Yes Testing Position Standing Right Passive Shoulder ROM WFL No Testing Position Supine External Rotation at 0 degrees Abduction 90 Internal Rotation 40 Right Active Shoulder ROM WFL Yes Testing Position Standing Internal Rotation Behind Back (text) Normal for dominant hand and reaches to mid scapular area Shoulder ROM Limitations Comments Pt reports right shoulder pain 5/10 with flexion, 6/10 with IR behind back PT-OP-M Strength Start: 09/29/19 12:45 Freq: Status: Active Protocol: Document 09/29/19 16:46 MB (Rec: 09/29/19 18:48 MB [id number]) Shoulder Strength Shoulder Manual Muscle Testing Left Flexion 5 Normal Abduction (C5) 5 Normal External Rotation 5 Normal Internal Rotation 5 Normal Right Comments Deferred d/t pain Elbow/Forearm Strength Elbow and Forearm Manual Muscle Testing Left Flexion (C6) 5 Normal Extension (C7) 5 Normal Pronation 5 Normal Supination 5 Normal Right Flexion (C6) 5 Normal Extension (C7) 5 Normal Pronation 4 Good Supination 4 Good Comments Pt reports 4/10 pain with right supination Wrist Strength Wrist Manual Muscle Testing Left Flexion (C7) 5 Normal Extension (C6) 5 Normal Right Flexion (C7) 5 Normal Extension (C6) 5 Normal PT-OP-Q Treatments Start: 09/29/19 12:45 Freq: Status: Active Protocol: Document 10/06/19 16:46 MB (Rec: 10/06/19 17:50 MB [id number]) Therapeutic Exercises Supine Exercises Diaphragmatic breathing Comments 5 reps, cues Supine abduction with cane Reps/Minutes 5 reps, 1 set Comments AAROM left hand abduction with right guiding supine elevation with cane Reps/Minutes 10 reps, 2 sets Comments AAROM left and right hands thumb up flexion Prone Exercises scapular retraction Comments Cervical support and scapular retraction Standing Exercises 1 Comments STM with racquet ball intrascapular area Self-Care/Home Management Treatment Education Other Education Extensive discussion with pt about different options for shoulder pain including conservative PT measures and referral to orthopedist for surgical work-up. Pt is very concerned about the return of her shoulder symptoms/problem despite not having a true injury. Ongoing encouragement about self-care, body positioning to support arm PT-OP-T Assessment and Plan Start: 09/29/19 12:45 Freq: Status: Active Protocol: Document 10/06/19 16:46 MB (Rec: 10/06/19 17:50 MB [id number]) Physical Therapy Assessment Rehab Potential Rehabilitation Potential Good Evaluation Complexity Number of Personal Factors/Comorbidities 0 Number of Body Systems Impaired 1-2 Clinical Presentation at Evaluation Stable Impairments Impairments Functional Mobility,Pain, Posture,ROM,Soft Tissue Mobility,Strength Goals 4 Certified Alcohol Counselor Goal (LTG) Pt will perform progressive HEP with I including postural, flexibility and strengthening exercises to increase right arm strength and decrease pain by 11/29/2019. LTG Duration 8 weeks Three Certified Alcohol Counselor Goal (LTG) Pt will present with an improved QuickDASH score to reflect no more than 10% impairment to allow return to pain-free IADLs by 11/29/2019. LTG Duration 8 weeks Two Certified Alcohol Counselor Goal (LTG) Pt will report an overall 80% improvement in right shoulder pain by 11/29/2019 to allow improved sleep and quality of life. LTG Duration 8 weeks One Mcfp Goal (LTG) Pt will present with right shoulder flexion, abduction, ER and IR strength to at lesat 4/5 by 11/29/2019 to allow improved use of right arm for self-care and walking dog. LTG Duration 8 weeks Assessment Summary Assessment Pt seems to have impingement type problem with resting arm on top of pillow in left sidelying. She had to pop her arm out in order to get it unstuck. ? labral issue. Pt will benefit from PT to improve strength, flexibility, posture and to decrease pain. PT prognosis is good. Physical Therapy Plan Frequency and Duration Frequency of Treatment 2x/Week Duration of Treatment 8 weeks Plan of Care Start Date 09/29/19 Plan of Care End Date 11/29/19 Therapeutic Interventions Therapeutic Interventions Aquatic Therapy,Canalithic Repositioning,Home Exercise Program,Manual Therapy, Neuromuscular Re-education, Patient/Caregiver Education, Self-Care/Home Management,Soft Tissue Mobilization,Taping, Therapeutic Activities, Therapeutic Exercises Modalities Cold Pack/Ice Massage,Electric Stimulation,Hot Packs, Ultrasound Other Therapeutic Interventions Laser Next Visit Focus/Plan Next Note Type Treatment Note Next Visit Plan Initiate HEP such as scapular retraction, use of racquet ball massage
--- NOTE | 2019-10-11 08:13 | PT.OTN ---
Current Diagnoses Unspecified rotator cuff tear or rupture of unspecified shoulder, not specified as traumatic (10/11/19) Physical Therapy Treatment Note PT-OP-A Visit Information Start: 09/29/19 12:45 Freq: Status: Active Protocol: Document 10/11/19 07:30 MB (Rec: 10/11/19 08:13 MB [id number]) Out-Patient Physical Therapy Visit Information Visit Information Visit Type Treatment Note Visit Note Medicare, unlimited visits Visit Start Time 07:30 Visit Stop Time 08:12 Total Visit Minutes 42 Visit Number 3 PT-OP-B Current Condition Start: 09/29/19 12:45 Freq: Status: Active Protocol: Document 09/29/19 16:46 MB (Rec: 09/29/19 17:42 MB [id number]) Current Condition History of Current Condition Onset Date 2018 Current Complaints Right rotator cuff pain History of Current Condition Pt reports insidious right rotator cuff tear in 2018. She states that she did not injure it. She had a MRI. The orthopedist states that it was an old tear. Pt is right handed. Pt has pain in bed and likes to sleep on her side. She does not use cervical support but is interested in learning about better sleeping position . She reports pain when she puts her arms on the wide arm rests of the recliner. She occ walks her dog on her right side. She got better with PT. Three weeks ago, she woke up and the right shoulder pain was back. Now, her right shoulder gets stuck and it pops. Pt reports 6/10 pain in anterior, lateral and posterior right shoulder. 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 INR is WNLs Prior Treatments and Tests PT and her right shoulder pain got better. She thinks that the movement helped. Treatment Goals Patient/Caregiver Goals Pt's goals for PT are to decrease pain and popping. PT-OP-C Subjective Start: 09/29/19 12:45 Freq: Status: Active Protocol: Document 10/11/19 07:30 MB (Rec: 10/11/19 08:13 MB [id number]) OP-PT Subjective Patient Comments Patient Comments Pt states that she has good days and bad days. Thursday was a good day and Thursday was a good day. PT-OP-J Posture/Palpation/Skin Start: 09/29/19 12:45 Freq: Status: Active Protocol: Document 09/29/19 16:46 MB (Rec: 09/29/19 18:48 MB [id number]) Posture Evaluation Comments Posture Comments Standing: forward head, rounded shoulders, Dowager's hump, decreased lumbar lordosis, right shoulder lower and right scapula more protracted and elevation compared to the left (pt is right handed), increased thoracic kyphosis, anterior tilt pelvis and high left iliac crest compared to the right. PT-OP-K Range of Motion Start: 09/29/19 12:45 Freq: Status: Active Protocol: Document 09/29/19 16:46 MB (Rec: 09/29/19 18:48 MB [id number]) Cervical Spine Range of Motion Cervical Spine Active Testing Position Standing Flexion 41 Extension 20 Rotation Left 40 Rotation Right 49 Lateral Flexion Left 10 Lateral Flexion Right 10 Shoulder Goniometric Range of Motion Shoulder Left Shoulder ROM WFL Yes Testing Position Standing Right Passive Shoulder ROM WFL No Testing Position Supine External Rotation at 0 degrees Abduction 90 Internal Rotation 40 Right Active Shoulder ROM WFL Yes Testing Position Standing Internal Rotation Behind Back (text) Normal for dominant hand and reaches to mid scapular area Shoulder ROM Limitations Comments Pt reports right shoulder pain 5/10 with flexion, 6/10 with IR behind back PT-OP-M Strength Start: 09/29/19 12:45 Freq: Status: Active Protocol: Document 09/29/19 16:46 MB (Rec: 09/29/19 18:48 MB [id number]) Shoulder Strength Shoulder Manual Muscle Testing Left Flexion 5 Normal Abduction (C5) 5 Normal External Rotation 5 Normal Internal Rotation 5 Normal Right Comments Deferred d/t pain Elbow/Forearm Strength Elbow and Forearm Manual Muscle Testing Left Flexion (C6) 5 Normal Extension (C7) 5 Normal Pronation 5 Normal Supination 5 Normal Right Flexion (C6) 5 Normal Extension (C7) 5 Normal Pronation 4 Good Supination 4 Good Comments Pt reports 4/10 pain with right supination Wrist Strength Wrist Manual Muscle Testing Left Flexion (C7) 5 Normal Extension (C6) 5 Normal Right Flexion (C7) 5 Normal Extension (C6) 5 Normal PT-OP-Q Treatments Start: 09/29/19 12:45 Freq: Status: Active Protocol: Document 10/11/19 07:30 MB (Rec: 10/11/19 08:13 MB [id number]) Therapeutic Exercises Supine Exercises Diaphragmatic breathing Comments 3 reps slowly, pt performs I today Supine abduction with cane Reps/Minutes 6 reps, 1 set Comments Much improved range today supine elevation with cane Reps/Minutes 10 reps Comments AAROM left and right hands thumb up flexion Prone Exercises scapular retraction Comments Cervical support and scapular retraction Standing Exercises ER with racquet ball against wall Reps/Minutes 20 ERs Comments Body 45 deg, ball against wall ,shoulder 90/90 1 Comments STM with racquet ball intrascapular area Manual Therapy Treatment Other Other Manual Treatments Pt prone: PA thoracic mobs level 2, STM right upper traps , B intrascapular muscles. Pt with increased tension right upper traps, PT providing trigger point pressure to infraspinatus and pt performing active ER and IR. Sitting upper traps STM with pt rotating head. PT-OP-T Assessment and Plan Start: 09/29/19 12:45 Freq: Status: Active Protocol: Document 10/11/19 07:30 MB (Rec: 10/11/19 08:13 MB [id number]) Physical Therapy Assessment Rehab Potential Rehabilitation Potential Good Evaluation Complexity Number of Personal Factors/Comorbidities 0 Number of Body Systems Impaired 1-2 Clinical Presentation at Evaluation Stable Impairments Impairments Functional Mobility,Pain, Posture,ROM,Soft Tissue Mobility,Strength Goals 4 Tip Finisher Goal (LTG) Pt will perform progressive HEP with I including postural, flexibility and strengthening exercises to increase right arm strength and decrease pain by 11/29/2019. LTG Duration 8 weeks Three Tip Finisher Goal (LTG) Pt will present with an improved QuickDASH score to reflect no more than 10% impairment to allow return to pain-free IADLs by 11/29/2019. LTG Duration 8 weeks Two Tip Finisher Goal (LTG) Pt will report an overall 80% improvement in right shoulder pain by 11/29/2019 to allow improved sleep and quality of life. LTG Duration 8 weeks One Alf Goal (LTG) Pt will present with right shoulder flexion, abduction, ER and IR strength to at lesat 4/5 by 11/29/2019 to allow improved use of right arm for self-care and walking dog. LTG Duration 8 weeks Assessment Summary Assessment Pt with increased spinal changes from kyphosis and increased tension right intrascapular muscles and upper traps compared to left. Manual work today and pt to perform self-mobilization with racquet ball at home. Physical Therapy Plan Frequency and Duration Frequency of Treatment 2x/Week Duration of Treatment 8 weeks Plan of Care Start Date 09/29/19 Plan of Care End Date 11/29/19 Therapeutic Interventions Therapeutic Interventions Aquatic Therapy,Canalithic Repositioning,Home Exercise Program,Manual Therapy, Neuromuscular Re-education, Patient/Caregiver Education, Self-Care/Home Management,Soft Tissue Mobilization,Taping, Therapeutic Activities, Therapeutic Exercises Modalities Cold Pack/Ice Massage,Electric Stimulation,Hot Packs, Ultrasound Other Therapeutic Interventions Laser Next Visit Focus/Plan Next Note Type Treatment Note Next Visit Plan Progress exercises--racquet ball upper traps, progress strengthening as able
--- NOTE | 2019-10-13 17:22 | PT.OTN ---
Current Diagnoses Unspecified rotator cuff tear or rupture of unspecified shoulder, not specified as traumatic (10/13/19) Physical Therapy Treatment Note PT-OP-A Visit Information Start: 09/29/19 12:45 Freq: Status: Active Protocol: Document 10/13/19 16:46 MB (Rec: 10/13/19 17:22 MB [id number]) Out-Patient Physical Therapy Visit Information Visit Information Visit Type Treatment Note Visit Note Medicare, unlimited visits. Shortened treatment d/t pt needs met with exercises in shortened time Visit Start Time 16:46 Visit Stop Time 17:18 Total Visit Minutes 32 Visit Number 4 PT-OP-B Current Condition Start: 09/29/19 12:45 Freq: Status: Active Protocol: Document 09/29/19 16:46 MB (Rec: 09/29/19 17:42 MB [id number]) Current Condition History of Current Condition Onset Date 2018 Current Complaints Right rotator cuff pain History of Current Condition Pt reports insidious right rotator cuff tear in 2018. She states that she did not injure it. She had a MRI. The orthopedist states that it was an old tear. Pt is right handed. Pt has pain in bed and likes to sleep on her side. She does not use cervical support but is interested in learning about better sleeping position . She reports pain when she puts her arms on the wide arm rests of the recliner. She occ walks her dog on her right side. She got better with PT. Three weeks ago, she woke up and the right shoulder pain was back. Now, her right shoulder gets stuck and it pops. Pt reports 6/10 pain in anterior, lateral and posterior right shoulder. 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 INR is WNLs Prior Treatments and Tests PT and her right shoulder pain got better. She thinks that the movement helped. Treatment Goals Patient/Caregiver Goals Pt's goals for PT are to decrease pain and popping. PT-OP-C Subjective Start: 09/29/19 12:45 Freq: Status: Active Protocol: Document 10/13/19 16:46 MB (Rec: 10/13/19 17:22 MB [id number]) OP-PT Subjective Patient Comments Patient Comments Pt states that she is doing okay. PT-OP-J Posture/Palpation/Skin Start: 09/29/19 12:45 Freq: Status: Active Protocol: Document 09/29/19 16:46 MB (Rec: 09/29/19 18:48 MB [id number]) Posture Evaluation Comments Posture Comments Standing: forward head, rounded shoulders, Dowager's hump, decreased lumbar lordosis, right shoulder lower and right scapula more protracted and elevation compared to the left (pt is right handed), increased thoracic kyphosis, anterior tilt pelvis and high left iliac crest compared to the right. PT-OP-K Range of Motion Start: 09/29/19 12:45 Freq: Status: Active Protocol: Document 09/29/19 16:46 MB (Rec: 09/29/19 18:48 MB [id number]) Cervical Spine Range of Motion Cervical Spine Active Testing Position Standing Flexion 41 Extension 20 Rotation Left 40 Rotation Right 49 Lateral Flexion Left 10 Lateral Flexion Right 10 Shoulder Goniometric Range of Motion Shoulder Left Shoulder ROM WFL Yes Testing Position Standing Right Passive Shoulder ROM WFL No Testing Position Supine External Rotation at 0 degrees Abduction 90 Internal Rotation 40 Right Active Shoulder ROM WFL Yes Testing Position Standing Internal Rotation Behind Back (text) Normal for dominant hand and reaches to mid scapular area Shoulder ROM Limitations Comments Pt reports right shoulder pain 5/10 with flexion, 6/10 with IR behind back PT-OP-M Strength Start: 09/29/19 12:45 Freq: Status: Active Protocol: Document 09/29/19 16:46 MB (Rec: 09/29/19 18:48 MB [id number]) Shoulder Strength Shoulder Manual Muscle Testing Left Flexion 5 Normal Abduction (C5) 5 Normal External Rotation 5 Normal Internal Rotation 5 Normal Right Comments Deferred d/t pain Elbow/Forearm Strength Elbow and Forearm Manual Muscle Testing Left Flexion (C6) 5 Normal Extension (C7) 5 Normal Pronation 5 Normal Supination 5 Normal Right Flexion (C6) 5 Normal Extension (C7) 5 Normal Pronation 4 Good Supination 4 Good Comments Pt reports 4/10 pain with right supination Wrist Strength Wrist Manual Muscle Testing Left Flexion (C7) 5 Normal Extension (C6) 5 Normal Right Flexion (C7) 5 Normal Extension (C6) 5 Normal PT-OP-Q Treatments Start: 09/29/19 12:45 Freq: Status: Active Protocol: Document 10/13/19 16:46 MB (Rec: 10/13/19 17:22 MB [id number]) Therapeutic Exercises Standing Exercises Shoulder ER and IR isometric in standing, core tight Reps/Minutes 5 reps Comments Level 1 and 2 band (level 1 for right ER only) Scapular retraction with elbows straight Comments Level 2 band, 5 reps PT-OP-T Assessment and Plan Start: 09/29/19 12:45 Freq: Status: Active Protocol: Document 10/13/19 16:46 MB (Rec: 10/13/19 17:22 MB [id number]) Physical Therapy Assessment Rehab Potential Rehabilitation Potential Good Evaluation Complexity Number of Personal Factors/Comorbidities 0 Number of Body Systems Impaired 1-2 Clinical Presentation at Evaluation Stable Impairments Impairments Functional Mobility,Pain, Posture,ROM,Soft Tissue Mobility,Strength Goals 4 Chcf Goal (LTG) Pt will perform progressive HEP with I including postural, flexibility and strengthening exercises to increase right arm strength and decrease pain by 11/29/2019. LTG Duration 8 weeks Three Medical Affairs Leader Goal (LTG) Pt will present with an improved QuickDASH score to reflect no more than 10% impairment to allow return to pain-free IADLs by 11/29/2019. LTG Duration 8 weeks Two Medical Affairs Leader Goal (LTG) Pt will report an overall 80% improvement in right shoulder pain by 11/29/2019 to allow improved sleep and quality of life. LTG Duration 8 weeks One Medical Affairs Leader Goal (LTG) Pt will present with right shoulder flexion, abduction, ER and IR strength to at lesat 4/5 by 11/29/2019 to allow improved use of right arm for self-care and walking dog. LTG Duration 8 weeks Assessment Summary Assessment Progressed strengthening exercises today, con't progression as pt tolerates. Shortened treatment today in order not to overstress arm with first strengthening exercises. Consider ROM over pool noodle and UBE next treatment date. Physical Therapy Plan Frequency and Duration Frequency of Treatment 2x/Week Duration of Treatment 8 weeks Plan of Care Start Date 09/29/19 Plan of Care End Date 11/29/19 Therapeutic Interventions Therapeutic Interventions Aquatic Therapy,Canalithic Repositioning,Home Exercise Program,Manual Therapy, Neuromuscular Re-education, Patient/Caregiver Education, Self-Care/Home Management,Soft Tissue Mobilization,Taping, Therapeutic Activities, Therapeutic Exercises Modalities Cold Pack/Ice Massage,Electric Stimulation,Hot Packs, Ultrasound Other Therapeutic Interventions Laser Next Visit Focus/Plan Next Note Type Treatment Note Next Visit Plan UBE, progression over pool noodle
--- NOTE | 2019-10-18 15:15 | PT.OTN ---
Current Diagnoses Unspecified rotator cuff tear or rupture of unspecified shoulder, not specified as traumatic (10/18/19) Physical Therapy Treatment Note PT-OP-A Visit Information Start: 09/29/19 12:45 Freq: Status: Active Protocol: Document 10/18/19 14:31 MB (Rec: 10/18/19 15:15 MB [id number]) Out-Patient Physical Therapy Visit Information Visit Information Visit Type Treatment Note Visit Note Medicare, unlimited visits Visit Start Time 14:31 Visit Stop Time 15:15 Total Visit Minutes 44 Visit Number 5 PT-OP-B Current Condition Start: 09/29/19 12:45 Freq: Status: Active Protocol: Document 09/29/19 16:46 MB (Rec: 09/29/19 17:42 MB [id number]) Current Condition History of Current Condition Onset Date 2018 Current Complaints Right rotator cuff pain History of Current Condition Pt reports insidious right rotator cuff tear in 2018. She states that she did not injure it. She had a MRI. The orthopedist states that it was an old tear. Pt is right handed. Pt has pain in bed and likes to sleep on her side. She does not use cervical support but is interested in learning about better sleeping position . She reports pain when she puts her arms on the wide arm rests of the recliner. She occ walks her dog on her right side. She got better with PT. Three weeks ago, she woke up and the right shoulder pain was back. Now, her right shoulder gets stuck and it pops. Pt reports 6/10 pain in anterior, lateral and posterior right shoulder. 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 INR is WNLs Prior Treatments and Tests PT and her right shoulder pain got better. She thinks that the movement helped. Treatment Goals Patient/Caregiver Goals Pt's goals for PT are to decrease pain and popping. PT-OP-C Subjective Start: 09/29/19 12:45 Freq: Status: Active Protocol: Document 10/18/19 14:31 MB (Rec: 10/18/19 15:15 MB [id number]) OP-PT Subjective Patient Comments Patient Comments Pt states that she vacuumed on Thursday and she had a lot of pain on Thursday. She will have someone help her clean for a while. She only did cane exercises on Thursday. She has not made an appointment with orthopedic surgeon. PT-OP-J Posture/Palpation/Skin Start: 09/29/19 12:45 Freq: Status: Active Protocol: Document 09/29/19 16:46 MB (Rec: 09/29/19 18:48 MB [id number]) Posture Evaluation Comments Posture Comments Standing: forward head, rounded shoulders, Dowager's hump, decreased lumbar lordosis, right shoulder lower and right scapula more protracted and elevation compared to the left (pt is right handed), increased thoracic kyphosis, anterior tilt pelvis and high left iliac crest compared to the right. PT-OP-K Range of Motion Start: 09/29/19 12:45 Freq: Status: Active Protocol: Document 09/29/19 16:46 MB (Rec: 09/29/19 18:48 MB [id number]) Cervical Spine Range of Motion Cervical Spine Active Testing Position Standing Flexion 41 Extension 20 Rotation Left 40 Rotation Right 49 Lateral Flexion Left 10 Lateral Flexion Right 10 Shoulder Goniometric Range of Motion Shoulder Left Shoulder ROM WFL Yes Testing Position Standing Right Passive Shoulder ROM WFL No Testing Position Supine External Rotation at 0 degrees Abduction 90 Internal Rotation 40 Right Active Shoulder ROM WFL Yes Testing Position Standing Internal Rotation Behind Back (text) Normal for dominant hand and reaches to mid scapular area Shoulder ROM Limitations Comments Pt reports right shoulder pain 5/10 with flexion, 6/10 with IR behind back PT-OP-M Strength Start: 09/29/19 12:45 Freq: Status: Active Protocol: Document 09/29/19 16:46 MB (Rec: 09/29/19 18:48 MB [id number]) Shoulder Strength Shoulder Manual Muscle Testing Left Flexion 5 Normal Abduction (C5) 5 Normal External Rotation 5 Normal Internal Rotation 5 Normal Right Comments Deferred d/t pain Elbow/Forearm Strength Elbow and Forearm Manual Muscle Testing Left Flexion (C6) 5 Normal Extension (C7) 5 Normal Pronation 5 Normal Supination 5 Normal Right Flexion (C6) 5 Normal Extension (C7) 5 Normal Pronation 4 Good Supination 4 Good Comments Pt reports 4/10 pain with right supination Wrist Strength Wrist Manual Muscle Testing Left Flexion (C7) 5 Normal Extension (C6) 5 Normal Right Flexion (C7) 5 Normal Extension (C6) 5 Normal PT-OP-Q Treatments Start: 09/29/19 12:45 Freq: Status: Active Protocol: Document 10/18/19 14:31 MB (Rec: 10/18/19 15:15 MB [id number]) Cardio Equipment Upper Body Ergometer (UBE) Other 2.5' forward and 2.5' backwards Therapeutic Exercises Supine Exercises Shoulder ER hook lying Reps/Minutes 10 reps, cues to slow down Comments Level 1 band ER with elbows at side Standing Exercises Shoulder ER and IR isometric in standing, core tight Comments Pt states that she does not have space at home, so d/c this one Manual Therapy Treatment Other Other Manual Treatments Gentle PROM right shoulder flexion and abduction x5 increases soreness today Prone: PA thoracic mobs and scapular mobs B Prone: Thoracic and scapular mobs PT-OP-T Assessment and Plan Start: 09/29/19 12:45 Freq: Status: Active Protocol: Document 10/18/19 14:31 MB (Rec: 10/18/19 15:15 MB [id number]) Physical Therapy Assessment Goals 4 Retirement Goal (LTG) Pt will perform progressive HEP with I including postural, flexibility and strengthening exercises to increase right arm strength and decrease pain by 11/29/2019. LTG Duration 8 weeks Three Arboriculture Teacher Goal (LTG) Pt will present with an improved QuickDASH score to reflect no more than 10% impairment to allow return to pain-free IADLs by 11/29/2019. LTG Duration 8 weeks Two Retirement Goal (LTG) Pt will report an overall 80% improvement in right shoulder pain by 11/29/2019 to allow improved sleep and quality of life. LTG Duration 8 weeks One Retirement Goal (LTG) Pt will present with right shoulder flexion, abduction, ER and IR strength to at lesat 4/5 by 11/29/2019 to allow improved use of right arm for self-care and walking dog. LTG Duration 8 weeks Assessment Summary Assessment Progressed strengthening this date. Con't progression, considering pool noodle for thoracic mobility. Physical Therapy Plan Frequency and Duration Frequency of Treatment 2x/Week Duration of Treatment 8 weeks Plan of Care Start Date 09/29/19 Plan of Care End Date 11/29/19 Therapeutic Interventions Therapeutic Interventions Aquatic Therapy,Canalithic Repositioning,Home Exercise Program,Manual Therapy, Neuromuscular Re-education, Patient/Caregiver Education, Self-Care/Home Management,Soft Tissue Mobilization,Taping, Therapeutic Activities, Therapeutic Exercises Modalities Cold Pack/Ice Massage,Electric Stimulation,Hot Packs, Ultrasound Other Therapeutic Interventions Laser Next Visit Focus/Plan Next Note Type Treatment Note Next Visit Plan Progression over pool noodle
--- NOTE | 2019-10-20 16:24 | PT.OTN ---
Current Diagnoses Unspecified rotator cuff tear or rupture of unspecified shoulder, not specified as traumatic (10/20/19) Physical Therapy Treatment Note PT-OP-A Visit Information Start: 09/29/19 12:45 Freq: Status: Active Protocol: Document 10/20/19 16:03 MB (Rec: 10/20/19 16:23 MB [id number]) Out-Patient Physical Therapy Visit Information Visit Information Visit Type Treatment Note Visit Note Medicare, unlimited visits Shortened treatment today per pt request, ed only Visit Start Time 16:03 Visit Stop Time 16:21 Total Visit Minutes 18 Visit Number 6 PT-OP-B Current Condition Start: 09/29/19 12:45 Freq: Status: Active Protocol: Document 09/29/19 16:46 MB (Rec: 09/29/19 17:42 MB [id number]) Current Condition History of Current Condition Onset Date 2018 Current Complaints Right rotator cuff pain History of Current Condition Pt reports insidious right rotator cuff tear in 2018. She states that she did not injure it. She had a MRI. The orthopedist states that it was an old tear. Pt is right handed. Pt has pain in bed and likes to sleep on her side. She does not use cervical support but is interested in learning about better sleeping position . She reports pain when she puts her arms on the wide arm rests of the recliner. She occ walks her dog on her right side. She got better with PT. Three weeks ago, she woke up and the right shoulder pain was back. Now, her right shoulder gets stuck and it pops. Pt reports 6/10 pain in anterior, lateral and posterior right shoulder. 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 INR is WNLs Prior Treatments and Tests PT and her right shoulder pain got better. She thinks that the movement helped. Treatment Goals Patient/Caregiver Goals Pt's goals for PT are to decrease pain and popping. PT-OP-C Subjective Start: 09/29/19 12:45 Freq: Status: Active Protocol: Document 10/20/19 16:03 MB (Rec: 10/20/19 16:23 MB [id number]) OP-PT Subjective Patient Comments Patient Comments Pt states that she is going to see orthopedic surgeon next week, Dr. Zoltan Nathan. She would like to cancel appointments next week. The hook lying ER with band killed her yesterday. PT-OP-J Posture/Palpation/Skin Start: 09/29/19 12:45 Freq: Status: Active Protocol: Document 09/29/19 16:46 MB (Rec: 09/29/19 18:48 MB [id number]) Posture Evaluation Comments Posture Comments Standing: forward head, rounded shoulders, Dowager's hump, decreased lumbar lordosis, right shoulder lower and right scapula more protracted and elevation compared to the left (pt is right handed), increased thoracic kyphosis, anterior tilt pelvis and high left iliac crest compared to the right. PT-OP-K Range of Motion Start: 09/29/19 12:45 Freq: Status: Active Protocol: Document 09/29/19 16:46 MB (Rec: 09/29/19 18:48 MB [id number]) Cervical Spine Range of Motion Cervical Spine Active Testing Position Standing Flexion 41 Extension 20 Rotation Left 40 Rotation Right 49 Lateral Flexion Left 10 Lateral Flexion Right 10 Shoulder Goniometric Range of Motion Shoulder Left Shoulder ROM WFL Yes Testing Position Standing Right Passive Shoulder ROM WFL No Testing Position Supine External Rotation at 0 degrees Abduction 90 Internal Rotation 40 Right Active Shoulder ROM WFL Yes Testing Position Standing Internal Rotation Behind Back (text) Normal for dominant hand and reaches to mid scapular area Shoulder ROM Limitations Comments Pt reports right shoulder pain 5/10 with flexion, 6/10 with IR behind back PT-OP-M Strength Start: 09/29/19 12:45 Freq: Status: Active Protocol: Document 09/29/19 16:46 MB (Rec: 09/29/19 18:48 MB [id number]) Shoulder Strength Shoulder Manual Muscle Testing Left Flexion 5 Normal Abduction (C5) 5 Normal External Rotation 5 Normal Internal Rotation 5 Normal Right Comments Deferred d/t pain Elbow/Forearm Strength Elbow and Forearm Manual Muscle Testing Left Flexion (C6) 5 Normal Extension (C7) 5 Normal Pronation 5 Normal Supination 5 Normal Right Flexion (C6) 5 Normal Extension (C7) 5 Normal Pronation 4 Good Supination 4 Good Comments Pt reports 4/10 pain with right supination Wrist Strength Wrist Manual Muscle Testing Left Flexion (C7) 5 Normal Extension (C6) 5 Normal Right Flexion (C7) 5 Normal Extension (C6) 5 Normal PT-OP-Q Treatments Start: 09/29/19 12:45 Freq: Status: Active Protocol: Document 10/20/19 16:03 MB (Rec: 10/20/19 16:23 MB [id number]) Self-Care/Home Management Treatment Activities Self-Care/Home Management Activities PT and pt talk about upcoming surgeon appointment and to tell surgeon that she had previous injury, current PT findings to see if range and pain improve and if she can tolerate strengthening--this has not progressed. Pt would like to slow down exercises before seeing doctor next week . Discussed exercises and d/cd shoulder ER with band PT-OP-T Assessment and Plan Start: 09/29/19 12:45 Freq: Status: Active Protocol: Document 10/20/19 16:03 MB (Rec: 10/20/19 16:23 MB [id number]) Physical Therapy Assessment Goals 4 Jail Goal (LTG) Pt will perform progressive HEP with I including postural, flexibility and strengthening exercises to increase right arm strength and decrease pain by 11/29/2019. LTG Duration 8 weeks Three Directional Bore Operator Goal (LTG) Pt will present with an improved QuickDASH score to reflect no more than 10% impairment to allow return to pain-free IADLs by 11/29/2019. LTG Duration 8 weeks Two Jail Goal (LTG) Pt will report an overall 80% improvement in right shoulder pain by 11/29/2019 to allow improved sleep and quality of life. LTG Duration 8 weeks One Directional Bore Operator Goal (LTG) Pt will present with right shoulder flexion, abduction, ER and IR strength to at lesat 4/5 by 11/29/2019 to allow improved use of right arm for self-care and walking dog. LTG Duration 8 weeks Assessment Summary Assessment Pt education today, see notes. Will con't PT after surgeon appointment next week. Physical Therapy Plan Frequency and Duration Frequency of Treatment 2x/Week Duration of Treatment 8 weeks Plan of Care Start Date 09/29/19 Plan of Care End Date 11/29/19 Therapeutic Interventions Therapeutic Interventions Aquatic Therapy,Canalithic Repositioning,Home Exercise Program,Manual Therapy, Neuromuscular Re-education, Patient/Caregiver Education, Self-Care/Home Management,Soft Tissue Mobilization,Taping, Therapeutic Activities, Therapeutic Exercises Modalities Cold Pack/Ice Massage,Electric Stimulation,Hot Packs, Ultrasound Other Therapeutic Interventions Laser Next Visit Focus/Plan Next Note Type Treatment Note Next Visit Plan Progression over pool noodle
--- NOTE | 2019-11-01 17:07 | PT.OTN ---
Current Diagnoses Unspecified rotator cuff tear or rupture of unspecified shoulder, not specified as traumatic (11/01/19) Physical Therapy Treatment Note PT-OP-A Visit Information Start: 09/29/19 12:45 Freq: Status: Active Protocol: Document 11/01/19 15:20 HH (Rec: 11/01/19 17:07 [id number]) Out-Patient Physical Therapy Visit Information Visit Information Visit Type Treatment Note Visit Start Time 15:20 Visit Stop Time 16:00 Total Visit Minutes 40 Visit Number 7 PT-OP-B Current Condition Start: 09/29/19 12:45 Freq: Status: Active Protocol: Document 09/29/19 16:46 MB (Rec: 09/29/19 17:42 MB [id number]) Current Condition History of Current Condition Onset Date 2018 Current Complaints Right rotator cuff pain History of Current Condition Pt reports insidious right rotator cuff tear in 2018. She states that she did not injure it. She had a MRI. The orthopedist states that it was an old tear. Pt is right handed. Pt has pain in bed and likes to sleep on her side. She does not use cervical support but is interested in learning about better sleeping position . She reports pain when she puts her arms on the wide arm rests of the recliner. She occ walks her dog on her right side. She got better with PT. Three weeks ago, she woke up and the right shoulder pain was back. Now, her right shoulder gets stuck and it pops. Pt reports 6/10 pain in anterior, lateral and posterior right shoulder. 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 INR is WNLs Prior Treatments and Tests PT and her right shoulder pain got better. She thinks that the movement helped. Treatment Goals Patient/Caregiver Goals Pt's goals for PT are to decrease pain and popping. PT-OP-C Subjective Start: 09/29/19 12:45 Freq: Status: Active Protocol: Document 11/01/19 15:20 HH (Rec: 11/01/19 17:07 HH [id number]) OP-PT Subjective Patient Comments Patient Comments I am having a good day but not yesterday. And i think its because after moving a lot of stuff from grocery shopping. Using and exercises seem to help. 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 TSA is not good for me at this point. PT-OP-J Posture/Palpation/Skin Start: 09/29/19 12:45 Freq: Status: Active Protocol: Document 09/29/19 16:46 MB (Rec: 09/29/19 18:48 MB [id number]) Posture Evaluation Comments Posture Comments Standing: forward head, rounded shoulders, Dowager's hump, decreased lumbar lordosis, right shoulder lower and right scapula more protracted and elevation compared to the left (pt is right handed), increased thoracic kyphosis, anterior tilt pelvis and high left iliac crest compared to the right. PT-OP-K Range of Motion Start: 09/29/19 12:45 Freq: Status: Active Protocol: Document 09/29/19 16:46 MB (Rec: 09/29/19 18:48 MB [id number]) Cervical Spine Range of Motion Cervical Spine Active Testing Position Standing Flexion 41 Extension 20 Rotation Left 40 Rotation Right 49 Lateral Flexion Left 10 Lateral Flexion Right 10 Shoulder Goniometric Range of Motion Shoulder Left Shoulder ROM WFL Yes Testing Position Standing Right Passive Shoulder ROM WFL No Testing Position Supine External Rotation at 0 degrees Abduction 90 Internal Rotation 40 Right Active Shoulder ROM WFL Yes Testing Position Standing Internal Rotation Behind Back (text) Normal for dominant hand and reaches to mid scapular area Shoulder ROM Limitations Comments Pt reports right shoulder pain 5/10 with flexion, 6/10 with IR behind back PT-OP-M Strength Start: 09/29/19 12:45 Freq: Status: Active Protocol: Document 09/29/19 16:46 MB (Rec: 09/29/19 18:48 MB [id number]) Shoulder Strength Shoulder Manual Muscle Testing Left Flexion 5 Normal Abduction (C5) 5 Normal External Rotation 5 Normal Internal Rotation 5 Normal Right Comments Deferred d/t pain Elbow/Forearm Strength Elbow and Forearm Manual Muscle Testing Left Flexion (C6) 5 Normal Extension (C7) 5 Normal Pronation 5 Normal Supination 5 Normal Right Flexion (C6) 5 Normal Extension (C7) 5 Normal Pronation 4 Good Supination 4 Good Comments Pt reports 4/10 pain with right supination Wrist Strength Wrist Manual Muscle Testing Left Flexion (C7) 5 Normal Extension (C6) 5 Normal Right Flexion (C7) 5 Normal Extension (C6) 5 Normal PT-OP-Q Treatments Start: 09/29/19 12:45 Freq: Status: Active Protocol: Document 11/01/19 15:20 (Rec: 11/01/19 17:07 [id number]) Therapeutic Exercises Supine Exercises tennis ball Supine Exercise Name at R RTC Side right Equipment Used tennis ball Comments for HEP Sidelying Exercises R sidelying open book Sidelying Exercise Name HEP Side right Reps/Minutes 8 x 5 Comments cues on avoiding excessive shoulder extension Standing Exercises door stretch Standing Exercise Name R pec for HEP Side right Reps/Minutes 10 sec hold x 5 Comments cues on avoiding shoulder excessive extension Manual Therapy Treatment Soft Tissue Mobilization R pecs, upper trap Mobilization Type Sustained Pressure,Trigger Point Release Intensity/Depth Moderate Body Position Supine Comments with R arm at abducted and flexed active release at R RTC Mobilization Type Sustained Pressure,Trigger Point Release Intensity/Depth Moderate Body Position Supine Joint Mobilizations GH posterior glide Direction PA Grade III Body Position Supine Reps/Duration 8 mins Comments with passive ER PT-OP-T Assessment and Plan Start: 09/29/19 12:45 Freq: Status: Active Protocol: Document 11/01/19 15:20 (Rec: 11/01/19 17:07 [id number]) Physical Therapy Assessment Goals 4 Halfway Goal (LTG) Pt will perform progressive HEP with I including postural, flexibility and strengthening exercises to increase right arm strength and decrease pain by 11/29/2019. LTG Duration 8 weeks Three Halfway Goal (LTG) Pt will present with an improved QuickDASH score to reflect no more than 10% impairment to allow return to pain-free IADLs by 11/29/2019. LTG Duration 8 weeks Two Halfway Goal (LTG) Pt will report an overall 80% improvement in right shoulder pain by 11/29/2019 to allow improved sleep and quality of life. LTG Duration 8 weeks One Political Director Goal (LTG) Pt will present with right shoulder flexion, abduction, ER and IR strength to at lesat 4/5 by 11/29/2019 to allow improved use of right arm for self-care and walking dog. LTG Duration 8 weeks Assessment Summary Assessment Surgeon appt suggested no surgery needed, x-ray showen AC DJD but no significant GH joint pathology. This PT assessed pt's dynamic movements and noticed pt presents significant anterior GH translation during flexion, reaching behind her back. Tx focused on manual therapy with tissue release at R pec, RTC. Added open book, door stretch and tennis ball release for HEP. Physical Therapy Plan Next Visit Focus/Plan Next Note Type Treatment Note Next Visit Plan cont manual work to assist posterior glide of humeral head strengthening of RTC, release of pec scap stabiization Progression over pool noodle
--- NOTE | 2019-11-03 09:00 | PT.OTN ---
Current Diagnoses Unspecified rotator cuff tear or rupture of unspecified shoulder, not specified as traumatic (11/03/19) Physical Therapy Treatment Note PT-OP-A Visit Information Start: 09/29/19 12:45 Freq: Status: Active Protocol: Document 11/03/19 08:12 HH (Rec: 11/03/19 08:59 [id number]) Out-Patient Physical Therapy Visit Information Visit Information Visit Type Treatment Note Visit Start Time 08:16 Visit Stop Time 09:00 Total Visit Minutes 44 Visit Number 8 PT-OP-B Current Condition Start: 09/29/19 12:45 Freq: Status: Active Protocol: Document 09/29/19 16:46 MB (Rec: 09/29/19 17:42 MB [id number]) Current Condition History of Current Condition Onset Date 2018 Current Complaints Right rotator cuff pain History of Current Condition Pt reports insidious right rotator cuff tear in 2018. She states that she did not injure it. She had a MRI. The orthopedist states that it was an old tear. Pt is right handed. Pt has pain in bed and likes to sleep on her side. She does not use cervical support but is interested in learning about better sleeping position . She reports pain when she puts her arms on the wide arm rests of the recliner. She occ walks her dog on her right side. She got better with PT. Three weeks ago, she woke up and the right shoulder pain was back. Now, her right shoulder gets stuck and it pops. Pt reports 6/10 pain in anterior, lateral and posterior right shoulder. 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 INR is WNLs Prior Treatments and Tests PT and her right shoulder pain got better. She thinks that the movement helped. Treatment Goals Patient/Caregiver Goals Pt's goals for PT are to decrease pain and popping. PT-OP-C Subjective Start: 09/29/19 12:45 Freq: Status: Active Protocol: Document 11/03/19 08:12 HH (Rec: 11/03/19 08:59 HH [id number]) OP-PT Subjective Patient Comments Patient Comments I felt pretty good yesterday but last night my shoulder got stuck in the middle of the night and got my really sore today. PT-OP-J Posture/Palpation/Skin Start: 09/29/19 12:45 Freq: Status: Active Protocol: Document 09/29/19 16:46 MB (Rec: 09/29/19 18:48 MB [id number]) Posture Evaluation Comments Posture Comments Standing: forward head, rounded shoulders, Dowager's hump, decreased lumbar lordosis, right shoulder lower and right scapula more protracted and elevation compared to the left (pt is right handed), increased thoracic kyphosis, anterior tilt pelvis and high left iliac crest compared to the right. PT-OP-K Range of Motion Start: 09/29/19 12:45 Freq: Status: Active Protocol: Document 09/29/19 16:46 MB (Rec: 09/29/19 18:48 MB [id number]) Cervical Spine Range of Motion Cervical Spine Active Testing Position Standing Flexion 41 Extension 20 Rotation Left 40 Rotation Right 49 Lateral Flexion Left 10 Lateral Flexion Right 10 Shoulder Goniometric Range of Motion Shoulder Left Shoulder ROM WFL Yes Testing Position Standing Right Passive Shoulder ROM WFL No Testing Position Supine External Rotation at 0 degrees Abduction 90 Internal Rotation 40 Right Active Shoulder ROM WFL Yes Testing Position Standing Internal Rotation Behind Back (text) Normal for dominant hand and reaches to mid scapular area Shoulder ROM Limitations Comments Pt reports right shoulder pain 5/10 with flexion, 6/10 with IR behind back PT-OP-M Strength Start: 09/29/19 12:45 Freq: Status: Active Protocol: Document 09/29/19 16:46 MB (Rec: 09/29/19 18:48 MB [id number]) Shoulder Strength Shoulder Manual Muscle Testing Left Flexion 5 Normal Abduction (C5) 5 Normal External Rotation 5 Normal Internal Rotation 5 Normal Right Comments Deferred d/t pain Elbow/Forearm Strength Elbow and Forearm Manual Muscle Testing Left Flexion (C6) 5 Normal Extension (C7) 5 Normal Pronation 5 Normal Supination 5 Normal Right Flexion (C6) 5 Normal Extension (C7) 5 Normal Pronation 4 Good Supination 4 Good Comments Pt reports 4/10 pain with right supination Wrist Strength Wrist Manual Muscle Testing Left Flexion (C7) 5 Normal Extension (C6) 5 Normal Right Flexion (C7) 5 Normal Extension (C6) 5 Normal PT-OP-Q Treatments Start: 09/29/19 12:45 Freq: Status: Active Protocol: Document 11/03/19 08:12 HH (Rec: 11/03/19 08:59 HH [id number]) Therapeutic Exercises Prone Exercises cat camel Side right Reps/Minutes 8 Comments max cues to facilitate trunk extension and flexion Sidelying Exercises R GH ER/IR with 1 lbs Sidelying Exercise Name no weight Reps/Minutes 8 x 2 R sidelying open book Sidelying Exercise Name without lumbar rotation Side right Reps/Minutes 8 x 5 Comments cues on avoiding excessive shoulder extension Sitting Exercises seated thoracic extension Sitting Exercise Name hands behind head Reps/Minutes 8 x2 Comments cues on scap retraction Standing Exercises door stretch Standing Exercise Name R pec for HEP Side right Reps/Minutes 10 sec hold x 5 Comments cues on avoiding shoulder excessive extension Manual Therapy Treatment Soft Tissue Mobilization R pecs, upper trap Mobilization Type Sustained Pressure,Trigger Point Release Intensity/Depth Moderate Body Position Supine Comments with R arm at abducted and flexed active release at R RTC Mobilization Type Sustained Pressure,Trigger Point Release Intensity/Depth Moderate Body Position Supine Joint Mobilizations GH posterior glide Direction PA Grade III Body Position Supine Reps/Duration 8 mins Comments with passive ER PT-OP-T Assessment and Plan Start: 09/29/19 12:45 Freq: Status: Active Protocol: Document 11/03/19 08:12 (Rec: 11/03/19 08:59 [id number]) Physical Therapy Assessment Goals 4 Software Tools Build Engineer Goal (LTG) Pt will perform progressive HEP with I including postural, flexibility and strengthening exercises to increase right arm strength and decrease pain by 11/29/2019. LTG Duration 8 weeks Three Jail Goal (LTG) Pt will present with an improved QuickDASH score to reflect no more than 10% impairment to allow return to pain-free IADLs by 11/29/2019. LTG Duration 8 weeks Two Software Tools Build Engineer Goal (LTG) Pt will report an overall 80% improvement in right shoulder pain by 11/29/2019 to allow improved sleep and quality of life. LTG Duration 8 weeks One Software Tools Build Engineer Goal (LTG) Pt will present with right shoulder flexion, abduction, ER and IR strength to at lesat 4/5 by 11/29/2019 to allow improved use of right arm for self-care and walking dog. LTG Duration 8 weeks Assessment Summary Assessment Pt felt sore today. Spent time reviewed HEP today on door stretch and open book. Noticed pt has very limited trunk rotation and extension. Educated pt to focus on upright position. Physical Therapy Plan Next Visit Focus/Plan Next Note Type Treatment Note Next Visit Plan cont manual work to assist posterior glide of humeral head strengthening of RTC, release of pec scap stabiization Progression over pool noodle
--- NOTE | 2019-11-08 16:48 | PT.OTN ---
Current Diagnoses Unspecified rotator cuff tear or rupture of unspecified shoulder, not specified as traumatic (11/08/19) Physical Therapy Treatment Note PT-OP-A Visit Information Start: 09/29/19 12:45 Freq: Status: Active Protocol: Document 11/08/19 14:32 HH (Rec: 11/08/19 16:47 HH [id number]) Out-Patient Physical Therapy Visit Information Visit Information Visit Type Treatment Note Visit Start Time 14:32 Visit Stop Time 15:15 Total Visit Minutes 43 Visit Number 9 Number of IT OPERATIONS ANALYST Visits 0 PT-OP-B Current Condition Start: 09/29/19 12:45 Freq: Status: Active Protocol: Document 09/29/19 16:46 MB (Rec: 09/29/19 17:42 MB [id number]) Current Condition History of Current Condition Onset Date 2018 Current Complaints Right rotator cuff pain History of Current Condition Pt reports insidious right rotator cuff tear in 2018. She states that she did not injure it. She had a MRI. The orthopedist states that it was an old tear. Pt is right handed. Pt has pain in bed and likes to sleep on her side. She does not use cervical support but is interested in learning about better sleeping position . She reports pain when she puts her arms on the wide arm rests of the recliner. She occ walks her dog on her right side. She got better with PT. Three weeks ago, she woke up and the right shoulder pain was back. Now, her right shoulder gets stuck and it pops. Pt reports 6/10 pain in anterior, lateral and posterior right shoulder. 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 INR is WNLs Prior Treatments and Tests PT and her right shoulder pain got better. She thinks that the movement helped. Treatment Goals Patient/Caregiver Goals Pt's goals for PT are to decrease pain and popping. PT-OP-C Subjective Start: 09/29/19 12:45 Freq: Status: Active Protocol: Document 11/08/19 14:32 HH (Rec: 11/08/19 16:47 HH [id number]) OP-PT Subjective Patient Comments Patient Comments I felt sore for the past couple days. PT-OP-J Posture/Palpation/Skin Start: 09/29/19 12:45 Freq: Status: Active Protocol: Document 09/29/19 16:46 MB (Rec: 09/29/19 18:48 MB [id number]) Posture Evaluation Comments Posture Comments Standing: forward head, rounded shoulders, Dowager's hump, decreased lumbar lordosis, right shoulder lower and right scapula more protracted and elevation compared to the left (pt is right handed), increased thoracic kyphosis, anterior tilt pelvis and high left iliac crest compared to the right. PT-OP-K Range of Motion Start: 09/29/19 12:45 Freq: Status: Active Protocol: Document 09/29/19 16:46 MB (Rec: 09/29/19 18:48 MB [id number]) Cervical Spine Range of Motion Cervical Spine Active Testing Position Standing Flexion 41 Extension 20 Rotation Left 40 Rotation Right 49 Lateral Flexion Left 10 Lateral Flexion Right 10 Shoulder Goniometric Range of Motion Shoulder Left Shoulder ROM WFL Yes Testing Position Standing Right Passive Shoulder ROM WFL No Testing Position Supine External Rotation at 0 degrees Abduction 90 Internal Rotation 40 Right Active Shoulder ROM WFL Yes Testing Position Standing Internal Rotation Behind Back (text) Normal for dominant hand and reaches to mid scapular area Shoulder ROM Limitations Comments Pt reports right shoulder pain 5/10 with flexion, 6/10 with IR behind back PT-OP-M Strength Start: 09/29/19 12:45 Freq: Status: Active Protocol: Document 09/29/19 16:46 MB (Rec: 09/29/19 18:48 MB [id number]) Shoulder Strength Shoulder Manual Muscle Testing Left Flexion 5 Normal Abduction (C5) 5 Normal External Rotation 5 Normal Internal Rotation 5 Normal Right Comments Deferred d/t pain Elbow/Forearm Strength Elbow and Forearm Manual Muscle Testing Left Flexion (C6) 5 Normal Extension (C7) 5 Normal Pronation 5 Normal Supination 5 Normal Right Flexion (C6) 5 Normal Extension (C7) 5 Normal Pronation 4 Good Supination 4 Good Comments Pt reports 4/10 pain with right supination Wrist Strength Wrist Manual Muscle Testing Left Flexion (C7) 5 Normal Extension (C6) 5 Normal Right Flexion (C7) 5 Normal Extension (C6) 5 Normal PT-OP-Q Treatments Start: 09/29/19 12:45 Freq: Status: Active Protocol: Document 11/08/19 14:32 HH (Rec: 11/08/19 16:47 HH [id number]) Therapeutic Exercises Sidelying Exercises horizontal abduction Sidelying Exercise Name without Tspine rotation Side right Reps/Minutes 8 x2 Comments cues on avoiding trunk rotation R sidelying open book Sidelying Exercise Name without lumbar rotation and shoulder extension Side right Reps/Minutes 8 x 5 Comments cues on avoiding excessive shoulder extension Standing Exercises door stretch Standing Exercise Name review HEP Side right Reps/Minutes 10 sec hold x 5 Comments cues on avoiding shoulder excessive extension Manual Therapy Treatment Soft Tissue Mobilization R pecs, upper trap Mobilization Type Sustained Pressure,Trigger Point Release Intensity/Depth Moderate Body Position Supine Comments with R arm at abducted and flexed active release at R RTC Mobilization Type Sustained Pressure,Trigger Point Release Intensity/Depth Moderate Body Position Supine Joint Mobilizations PA mob Joint T-spine 1-8 Direction PA Grade III Body Position Prone Reps/Duration 2 mins Comments with inhalation and exhalation to facilitate relaxation. PT-OP-T Assessment and Plan Start: 09/29/19 12:45 Freq: Status: Active Protocol: Document 11/08/19 14:32 HH (Rec: 11/08/19 16:47 HH [id number]) Physical Therapy Assessment Goals 4 Fish Stringer Assembler Goal (LTG) Pt will perform progressive HEP with I including postural, flexibility and strengthening exercises to increase right arm strength and decrease pain by 11/29/2019. LTG Duration 8 weeks Three Custodial Goal (LTG) Pt will present with an improved QuickDASH score to reflect no more than 10% impairment to allow return to pain-free IADLs by 11/29/2019. LTG Duration 8 weeks Two Custodial Goal (LTG) Pt will report an overall 80% improvement in right shoulder pain by 11/29/2019 to allow improved sleep and quality of life. LTG Duration 8 weeks One Custodial Goal (LTG) Pt will present with right shoulder flexion, abduction, ER and IR strength to at lesat 4/5 by 11/29/2019 to allow improved use of right arm for self-care and walking dog. LTG Duration 8 weeks Assessment Summary Assessment Pt felt good today after taking a break from HEP. Spend much time to review HEP with pt and pt tends extend her shoulder which place excessive stress on anterior capsule of GH joint. Educated pt to keep her hand and shoulder aligned for opeb book and door stretch. Physical Therapy Plan Next Visit Focus/Plan Next Note Type Treatment Note Next Visit Plan cont manual work to assist posterior glide of humeral head strengthening of RTC, release of pec scap stabiization Progression over pool noodle
--- NOTE | 2019-11-10 16:11 | PT.OTN ---
Current Diagnoses Unspecified rotator cuff tear or rupture of unspecified shoulder, not specified as traumatic (11/10/19) Physical Therapy Treatment Note PT-OP-A Visit Information Start: 09/29/19 12:45 Freq: Status: Active Protocol: Document 11/10/19 15:18 HH (Rec: 11/10/19 16:11 HH [id number]) Out-Patient Physical Therapy Visit Information Visit Information Visit Type Treatment Note Visit Start Time 14:32 Visit Stop Time 15:15 Total Visit Minutes 43 Visit Number 9 Number of CORPORATE REAL ESTATE SPECIALIST Visits 0 PT-OP-B Current Condition Start: 09/29/19 12:45 Freq: Status: Active Protocol: Document 09/29/19 16:46 MB (Rec: 09/29/19 17:42 MB [id number]) Current Condition History of Current Condition Onset Date 2018 Current Complaints Right rotator cuff pain History of Current Condition Pt reports insidious right rotator cuff tear in 2018. She states that she did not injure it. She had a MRI. The orthopedist states that it was an old tear. Pt is right handed. Pt has pain in bed and likes to sleep on her side. She does not use cervical support but is interested in learning about better sleeping position . She reports pain when she puts her arms on the wide arm rests of the recliner. She occ walks her dog on her right side. She got better with PT. Three weeks ago, she woke up and the right shoulder pain was back. Now, her right shoulder gets stuck and it pops. Pt reports 6/10 pain in anterior, lateral and posterior right shoulder. 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 INR is WNLs Prior Treatments and Tests PT and her right shoulder pain got better. She thinks that the movement helped. Treatment Goals Patient/Caregiver Goals Pt's goals for PT are to decrease pain and popping. PT-OP-C Subjective Start: 09/29/19 12:45 Freq: Status: Active Protocol: Document 11/10/19 15:18 HH (Rec: 11/10/19 16:11 HH [id number]) OP-PT Subjective Patient Comments Patient Comments My shoulder was sore yesterday and today. Patient Reported Progress Same PT-OP-J Posture/Palpation/Skin Start: 09/29/19 12:45 Freq: Status: Active Protocol: Document 09/29/19 16:46 MB (Rec: 09/29/19 18:48 MB [id number]) Posture Evaluation Comments Posture Comments Standing: forward head, rounded shoulders, Dowager's hump, decreased lumbar lordosis, right shoulder lower and right scapula more protracted and elevation compared to the left (pt is right handed), increased thoracic kyphosis, anterior tilt pelvis and high left iliac crest compared to the right. PT-OP-K Range of Motion Start: 09/29/19 12:45 Freq: Status: Active Protocol: Document 09/29/19 16:46 MB (Rec: 09/29/19 18:48 MB [id number]) Cervical Spine Range of Motion Cervical Spine Active Testing Position Standing Flexion 41 Extension 20 Rotation Left 40 Rotation Right 49 Lateral Flexion Left 10 Lateral Flexion Right 10 Shoulder Goniometric Range of Motion Shoulder Left Shoulder ROM WFL Yes Testing Position Standing Right Passive Shoulder ROM WFL No Testing Position Supine External Rotation at 0 degrees Abduction 90 Internal Rotation 40 Right Active Shoulder ROM WFL Yes Testing Position Standing Internal Rotation Behind Back (text) Normal for dominant hand and reaches to mid scapular area Shoulder ROM Limitations Comments Pt reports right shoulder pain 5/10 with flexion, 6/10 with IR behind back PT-OP-M Strength Start: 09/29/19 12:45 Freq: Status: Active Protocol: Document 09/29/19 16:46 MB (Rec: 09/29/19 18:48 MB [id number]) Shoulder Strength Shoulder Manual Muscle Testing Left Flexion 5 Normal Abduction (C5) 5 Normal External Rotation 5 Normal Internal Rotation 5 Normal Right Comments Deferred d/t pain Elbow/Forearm Strength Elbow and Forearm Manual Muscle Testing Left Flexion (C6) 5 Normal Extension (C7) 5 Normal Pronation 5 Normal Supination 5 Normal Right Flexion (C6) 5 Normal Extension (C7) 5 Normal Pronation 4 Good Supination 4 Good Comments Pt reports 4/10 pain with right supination Wrist Strength Wrist Manual Muscle Testing Left Flexion (C7) 5 Normal Extension (C6) 5 Normal Right Flexion (C7) 5 Normal Extension (C6) 5 Normal PT-OP-Q Treatments Start: 09/29/19 12:45 Freq: Status: Active Protocol: Document 11/10/19 15:18 HH (Rec: 11/10/19 16:11 HH [id number]) Therapeutic Exercises Prone Exercises scap row Prone Exercise Name with scap squeeze Side bilateral Reps/Minutes 8 x2 Comments prevent hyperextension on GHJ, cues on pain free range scapular retraction Prone Exercise Name scap squeeze Side bilateral Reps/Minutes 8 x2 Comments 2sec hold at top Sidelying Exercises SL abduction Side right Reps/Minutes 8x2 horizontal abduction Sidelying Exercise Name without Tspine rotation, with scap squeeze Side right Equipment Used no weight Reps/Minutes 8 x2 Comments cues on avoiding trunk rotation R GH ER/IR with 1 lbs Sidelying Exercise Name no weight Side right Equipment Used 1lb db Reps/Minutes 8 x 2 Standing Exercises door stretch Standing Exercise Name review HEP Side bilateral Reps/Minutes 10 sec hold x 5 Comments cues on avoiding shoulder excessive extension Manual Therapy Treatment Soft Tissue Mobilization R pecs, upper trap Mobilization Type Sustained Pressure,Trigger Point Release Intensity/Depth Moderate Body Position Supine Comments with R arm at abducted and flexed active release at R RTC Mobilization Type Sustained Pressure,Trigger Point Release Intensity/Depth Moderate Body Position Supine Joint Mobilizations PA mob Joint T-spine 1-8 Direction PA Grade III Body Position Prone Reps/Duration 2 mins Comments with inhalation and exhalation to facilitate relaxation. PT-OP-T Assessment and Plan Start: 09/29/19 12:45 Freq: Status: Active Protocol: Document 11/10/19 15:18 (Rec: 11/10/19 16:11 [id number]) Physical Therapy Assessment Goals 4 Forest Fire Management Officer Goal (LTG) Pt will perform progressive HEP with I including postural, flexibility and strengthening exercises to increase right arm strength and decrease pain by 11/29/2019. LTG Duration 8 weeks Three Forest Fire Management Officer Goal (LTG) Pt will present with an improved QuickDASH score to reflect no more than 10% impairment to allow return to pain-free IADLs by 11/29/2019. LTG Duration 8 weeks Two Forest Fire Management Officer Goal (LTG) Pt will report an overall 80% improvement in right shoulder pain by 11/29/2019 to allow improved sleep and quality of life. LTG Duration 8 weeks One Forest Fire Management Officer Goal (LTG) Pt will present with right shoulder flexion, abduction, ER and IR strength to at lesat 4/5 by 11/29/2019 to allow improved use of right arm for self-care and walking dog. LTG Duration 8 weeks Assessment Summary Assessment Pt cont to feel sore today. Tx started with manual therapy followed by scap stabilization . Pt reports minimal pain but needed cues to avoid excessive GHJ ER and extension d/t anterior translation of humeral head. Pt papo tx well and provided pt new HEP with SL abd, SL ER, SL horizontal abd, pec stretch. Physical Therapy Plan Next Visit Focus/Plan Next Note Type Treatment Note Next Visit Plan cont manual work to assist posterior glide of humeral head strengthening of RTC in SL prone and supine position, release of pec scap stabiization Progression over pool noodle
--- NOTE | 2019-11-15 14:31 | PT.OTN ---
Current Diagnoses Unspecified rotator cuff tear or rupture of unspecified shoulder, not specified as traumatic (11/15/19) Physical Therapy Treatment Note PT-OP-A Visit Information Start: 09/29/19 12:45 Freq: Status: Active Protocol: Document 11/15/19 13:40 HH (Rec: 11/15/19 14:31 HH [id number]) Out-Patient Physical Therapy Visit Information Visit Information Visit Type Progress Note Visit Start Time 13:46 Visit Stop Time 14:30 Total Visit Minutes 44 Visit Number 10 Number of CRYOGENIC TRANSPORT DRIVER Visits 0 PT-OP-B Current Condition Start: 09/29/19 12:45 Freq: Status: Active Protocol: Document 09/29/19 16:46 MB (Rec: 09/29/19 17:42 MB [id number]) Current Condition History of Current Condition Onset Date 2018 Current Complaints Right rotator cuff pain History of Current Condition Pt reports insidious right rotator cuff tear in 2018. She states that she did not injure it. She had a MRI. The orthopedist states that it was an old tear. Pt is right handed. Pt has pain in bed and likes to sleep on her side. She does not use cervical support but is interested in learning about better sleeping position . She reports pain when she puts her arms on the wide arm rests of the recliner. She occ walks her dog on her right side. She got better with PT. Three weeks ago, she woke up and the right shoulder pain was back. Now, her right shoulder gets stuck and it pops. Pt reports 6/10 pain in anterior, lateral and posterior right shoulder. 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 INR is WNLs Prior Treatments and Tests PT and her right shoulder pain got better. She thinks that the movement helped. Treatment Goals Patient/Caregiver Goals Pt's goals for PT are to decrease pain and popping. PT-OP-C Subjective Start: 09/29/19 12:45 Freq: Status: Active Protocol: Document 11/15/19 13:40 HH (Rec: 11/15/19 14:31 HH [id number]) OP-PT Subjective Patient Comments Patient Comments My shoulder had no pain on Thursday and i decided to sleep on R side that night but it was hurting on Thursday but it did get better for the past 2 days. Patient Reported Progress Improving PT-OP-J Posture/Palpation/Skin Start: 09/29/19 12:45 Freq: Status: Active Protocol: Document 09/29/19 16:46 MB (Rec: 09/29/19 18:48 MB [id number]) Posture Evaluation Comments Posture Comments Standing: forward head, rounded shoulders, Dowager's hump, decreased lumbar lordosis, right shoulder lower and right scapula more protracted and elevation compared to the left (pt is right handed), increased thoracic kyphosis, anterior tilt pelvis and high left iliac crest compared to the right. PT-OP-K Range of Motion Start: 09/29/19 12:45 Freq: Status: Active Protocol: Document 09/29/19 16:46 MB (Rec: 09/29/19 18:48 MB [id number]) Cervical Spine Range of Motion Cervical Spine Active Testing Position Standing Flexion 41 Extension 20 Rotation Left 40 Rotation Right 49 Lateral Flexion Left 10 Lateral Flexion Right 10 Shoulder Goniometric Range of Motion Shoulder Left Shoulder ROM WFL Yes Testing Position Standing Right Passive Shoulder ROM WFL No Testing Position Supine External Rotation at 0 degrees Abduction 90 Internal Rotation 40 Right Active Shoulder ROM WFL Yes Testing Position Standing Internal Rotation Behind Back (text) Normal for dominant hand and reaches to mid scapular area Shoulder ROM Limitations Comments Pt reports right shoulder pain 5/10 with flexion, 6/10 with IR behind back PT-OP-M Strength Start: 09/29/19 12:45 Freq: Status: Active Protocol: Document 09/29/19 16:46 MB (Rec: 09/29/19 18:48 MB [id number]) Shoulder Strength Shoulder Manual Muscle Testing Left Flexion 5 Normal Abduction (C5) 5 Normal External Rotation 5 Normal Internal Rotation 5 Normal Right Comments Deferred d/t pain Elbow/Forearm Strength Elbow and Forearm Manual Muscle Testing Left Flexion (C6) 5 Normal Extension (C7) 5 Normal Pronation 5 Normal Supination 5 Normal Right Flexion (C6) 5 Normal Extension (C7) 5 Normal Pronation 4 Good Supination 4 Good Comments Pt reports 4/10 pain with right supination Wrist Strength Wrist Manual Muscle Testing Left Flexion (C7) 5 Normal Extension (C6) 5 Normal Right Flexion (C7) 5 Normal Extension (C6) 5 Normal PT-OP-Q Treatments Start: 09/29/19 12:45 Freq: Status: Active Protocol: Document 11/15/19 13:40 HH (Rec: 11/15/19 14:31 [id number]) Therapeutic Exercises Prone Exercises scap row Prone Exercise Name with scap squeeze Side bilateral Reps/Minutes 8 x2 scapular retraction Prone Exercise Name scap squeeze with arm extended Side bilateral Reps/Minutes 8 x2 Comments 2sec hold at top Sidelying Exercises SL abduction Side right Equipment Used 1 lb DB then 2lb for 6 reps Reps/Minutes 8x2 horizontal abduction Sidelying Exercise Name without Tspine rotation, with scap squeeze Side right Equipment Used 1 lb then 2lbs for 6 Reps/Minutes 8 x2 Comments cues on avoiding trunk rotation R GH ER/IR with 1 lbs Sidelying Exercise Name no weight Side right Equipment Used 1lb db then 2 lb Reps/Minutes 8 x 2 R sidelying open book Sidelying Exercise Name without lumbar rotation and shoulder extension Side right Reps/Minutes 8 x 5 Comments cues on avoiding excessive shoulder extension Manual Therapy Treatment Soft Tissue Mobilization R pecs, upper trap Mobilization Type Sustained Pressure,Trigger Point Release Intensity/Depth Moderate Body Position Supine Comments with R arm at abducted and flexed active release at R RTC Mobilization Type Sustained Pressure,Trigger Point Release Intensity/Depth Moderate Body Position Supine Joint Mobilizations PA mob Joint T-spine 1-8 Direction PA Grade III Body Position Prone Reps/Duration 2 mins Comments with inhalation and exhalation to facilitate relaxation. PT-OP-T Assessment and Plan Start: 09/29/19 12:45 Freq: Status: Active Protocol: Document 11/15/19 13:40 (Rec: 11/15/19 14:31 [id number]) Physical Therapy Assessment Goals 4 Short Term Goal (STG) 11/14 cont in progress Pt has been compliant to her HEP with good understanding and correct mechanics Alf Goal (LTG) Pt will perform progressive HEP with I including postural, flexibility and strengthening exercises to increase right arm strength and decrease pain by 11/29/2019. LTG Duration 8 weeks Three Alf Goal (LTG) Pt will present with an improved QuickDASH score to reflect no more than 10% impairment to allow return to pain-free IADLs by 11/29/2019. LTG Duration 8 weeks Two Short Term Goal (STG) 11/14 Pt had a pain free day on thursday and overall reduced pain since last week. Alf Goal (LTG) Pt will report an overall 80% improvement in right shoulder pain by 11/29/2019 to allow improved sleep and quality of life. LTG Duration 8 weeks One Short Term Goal (STG) Pt has improved abd and ER strength by 1/2 MMT grade 11/14 Alf Goal (LTG) Pt will present with right shoulder flexion, abduction, ER and IR strength to at lesat 4/5 by 11/29/2019 to allow improved use of right arm for self-care and walking dog. LTG Duration 8 weeks Progress Towards Goals Progress Towards Goals Progressing Toward Goals Assessment Summary Assessment Pt shows improved pain symptoms over the weekend and improved understanding of body mechanics for HEP. Pt is well aware of her rehab goal now. She was able to tolerate shoulder ex today with 1-2 lbs DB with minimal discomfort. Physical Therapy Plan Next Visit Focus/Plan Next Note Type Treatment Note Next Visit Plan cont manual work to assist posterior glide of humeral head strengthening of RTC in SL prone and supine position, release of pec scap stabiization Progression over pool noodle
--- NOTE | 2019-11-17 14:31 | PT.OTN ---
Current Diagnoses Unspecified rotator cuff tear or rupture of unspecified shoulder, not specified as traumatic (11/17/19) Physical Therapy Treatment Note PT-OP-A Visit Information Start: 09/29/19 12:45 Freq: Status: Active Protocol: Document 11/17/19 13:48 HH (Rec: 11/17/19 14:30 HH [id number]) Out-Patient Physical Therapy Visit Information Visit Information Visit Type Treatment Note Visit Start Time 13:50 Visit Stop Time 14:30 Total Visit Minutes 40 Visit Number 11 Number of DATA MODELING SPECIALIST Visits 0 PT-OP-B Current Condition Start: 09/29/19 12:45 Freq: Status: Active Protocol: Document 09/29/19 16:46 MB (Rec: 09/29/19 17:42 MB [id number]) Current Condition History of Current Condition Onset Date 2018 Current Complaints Right rotator cuff pain History of Current Condition Pt reports insidious right rotator cuff tear in 2018. She states that she did not injure it. She had a MRI. The orthopedist states that it was an old tear. Pt is right handed. Pt has pain in bed and likes to sleep on her side. She does not use cervical support but is interested in learning about better sleeping position . She reports pain when she puts her arms on the wide arm rests of the recliner. She occ walks her dog on her right side. She got better with PT. Three weeks ago, she woke up and the right shoulder pain was back. Now, her right shoulder gets stuck and it pops. Pt reports 6/10 pain in anterior, lateral and posterior right shoulder. 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 INR is WNLs Prior Treatments and Tests PT and her right shoulder pain got better. She thinks that the movement helped. Treatment Goals Patient/Caregiver Goals Pt's goals for PT are to decrease pain and popping. PT-OP-C Subjective Start: 09/29/19 12:45 Freq: Status: Active Protocol: Document 11/17/19 13:48 HH (Rec: 11/17/19 14:30 HH [id number]) OP-PT Subjective Patient Comments Patient Comments I went to grocery shop and did lots of lifting and it hurts my shoulder last night. Patient Reported Progress Same PT-OP-J Posture/Palpation/Skin Start: 09/29/19 12:45 Freq: Status: Active Protocol: Document 09/29/19 16:46 MB (Rec: 09/29/19 18:48 MB [id number]) Posture Evaluation Comments Posture Comments Standing: forward head, rounded shoulders, Dowager's hump, decreased lumbar lordosis, right shoulder lower and right scapula more protracted and elevation compared to the left (pt is right handed), increased thoracic kyphosis, anterior tilt pelvis and high left iliac crest compared to the right. PT-OP-K Range of Motion Start: 09/29/19 12:45 Freq: Status: Active Protocol: Document 09/29/19 16:46 MB (Rec: 09/29/19 18:48 MB [id number]) Cervical Spine Range of Motion Cervical Spine Active Testing Position Standing Flexion 41 Extension 20 Rotation Left 40 Rotation Right 49 Lateral Flexion Left 10 Lateral Flexion Right 10 Shoulder Goniometric Range of Motion Shoulder Left Shoulder ROM WFL Yes Testing Position Standing Right Passive Shoulder ROM WFL No Testing Position Supine External Rotation at 0 degrees Abduction 90 Internal Rotation 40 Right Active Shoulder ROM WFL Yes Testing Position Standing Internal Rotation Behind Back (text) Normal for dominant hand and reaches to mid scapular area Shoulder ROM Limitations Comments Pt reports right shoulder pain 5/10 with flexion, 6/10 with IR behind back PT-OP-M Strength Start: 09/29/19 12:45 Freq: Status: Active Protocol: Document 09/29/19 16:46 MB (Rec: 09/29/19 18:48 MB [id number]) Shoulder Strength Shoulder Manual Muscle Testing Left Flexion 5 Normal Abduction (C5) 5 Normal External Rotation 5 Normal Internal Rotation 5 Normal Right Comments Deferred d/t pain Elbow/Forearm Strength Elbow and Forearm Manual Muscle Testing Left Flexion (C6) 5 Normal Extension (C7) 5 Normal Pronation 5 Normal Supination 5 Normal Right Flexion (C6) 5 Normal Extension (C7) 5 Normal Pronation 4 Good Supination 4 Good Comments Pt reports 4/10 pain with right supination Wrist Strength Wrist Manual Muscle Testing Left Flexion (C7) 5 Normal Extension (C6) 5 Normal Right Flexion (C7) 5 Normal Extension (C6) 5 Normal PT-OP-Q Treatments Start: 09/29/19 12:45 Freq: Status: Active Protocol: Document 11/17/19 13:48 HH (Rec: 11/17/19 14:30 HH [id number]) Therapeutic Exercises Prone Exercises scap row Prone Exercise Name with scap squeeze Side bilateral Reps/Minutes 8 x2 scapular retraction Prone Exercise Name scap squeeze with arm extended Side bilateral Reps/Minutes 8 x2 Comments 2sec hold at top Sidelying Exercises SL abduction Side right Equipment Used 2lb for 6 reps Reps/Minutes 6x 2 horizontal abduction Sidelying Exercise Name without Tspine rotation, with scap squeeze Side right Equipment Used 2lbs DB Reps/Minutes 6 x2 Comments cues on avoiding trunk rotation Sitting Exercises seated pull apart Side bilateral Equipment Used yellow band Reps/Minutes 8times Comments no pain noted. cues on scap squeeze Manual Therapy Treatment Soft Tissue Mobilization R pecs, upper trap Mobilization Type Sustained Pressure,Trigger Point Release Intensity/Depth Moderate Body Position Supine Comments with R arm at abducted and flexed active release at R RTC Mobilization Type Sustained Pressure,Trigger Point Release Intensity/Depth Moderate Body Position Supine Joint Mobilizations PA mob Joint T-spine 1-8 Direction PA Grade III Body Position Prone Reps/Duration 2 mins Comments with inhalation and exhalation to facilitate relaxation. PT-OP-T Assessment and Plan Start: 09/29/19 12:45 Freq: Status: Active Protocol: Document 11/17/19 13:48 (Rec: 11/17/19 14:30 [id number]) Physical Therapy Assessment Goals 4 Short Term Goal (STG) 11/14 cont in progress Pt has been compliant to her HEP with good understanding and correct mechanics Skilled Nursing Goal (LTG) Pt will perform progressive HEP with I including postural, flexibility and strengthening exercises to increase right arm strength and decrease pain by 11/29/2019. LTG Duration 8 weeks Three Skilled Nursing Goal (LTG) Pt will present with an improved QuickDASH score to reflect no more than 10% impairment to allow return to pain-free IADLs by 11/29/2019. LTG Duration 8 weeks Two Short Term Goal (STG) 11/14 Pt had a pain free day on thursday and overall reduced pain since last week. Skilled Nursing Goal (LTG) Pt will report an overall 80% improvement in right shoulder pain by 11/29/2019 to allow improved sleep and quality of life. LTG Duration 8 weeks One Short Term Goal (STG) Pt has improved abd and ER strength by 1/2 MMT grade 11/14 Young Adult Librarian Goal (LTG) Pt will present with right shoulder flexion, abduction, ER and IR strength to at lesat 4/5 by 11/29/2019 to allow improved use of right arm for self-care and walking dog. LTG Duration 8 weeks Assessment Summary Assessment Pt has a flare up from yesterday lifting groceries. Educated pt be cautious to lift heavy objects in front of her as this tends to increase tension at anterior GHJ. Recommended her to do it sideway if possible. Tx focused on scap stabilization with 2 lbs DB. Pt papo well with minimal discomfort. Physical Therapy Plan Next Visit Focus/Plan Next Note Type Treatment Note Next Visit Plan cont manual work to assist posterior glide of humeral head strengthening of RTC in SL prone and supine position, release of pec scap stabiization Progression over SL to seated ex.
--- NOTE | 2019-11-22 13:52 | PT.OTN ---
Current Diagnoses Unspecified rotator cuff tear or rupture of unspecified shoulder, not specified as traumatic (11/22/19) Physical Therapy Treatment Note PT-OP-A Visit Information Start: 09/29/19 12:45 Freq: Status: Active Protocol: Document 11/22/19 13:03 HH (Rec: 11/22/19 13:52 HH [id number]) Out-Patient Physical Therapy Visit Information Visit Information Visit Type Treatment Note Visit Start Time 13:50 Visit Stop Time 14:30 Total Visit Minutes 40 Visit Number 12 Number of GAS FITTER HELPER Visits 0 PT-OP-B Current Condition Start: 09/29/19 12:45 Freq: Status: Active Protocol: Document 09/29/19 16:46 MB (Rec: 09/29/19 17:42 MB [id number]) Current Condition History of Current Condition Onset Date 2018 Current Complaints Right rotator cuff pain History of Current Condition Pt reports insidious right rotator cuff tear in 2018. She states that she did not injure it. She had a MRI. The orthopedist states that it was an old tear. Pt is right handed. Pt has pain in bed and likes to sleep on her side. She does not use cervical support but is interested in learning about better sleeping position . She reports pain when she puts her arms on the wide arm rests of the recliner. She occ walks her dog on her right side. She got better with PT. Three weeks ago, she woke up and the right shoulder pain was back. Now, her right shoulder gets stuck and it pops. Pt reports 6/10 pain in anterior, lateral and posterior right shoulder. 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 INR is WNLs Prior Treatments and Tests PT and her right shoulder pain got better. She thinks that the movement helped. Treatment Goals Patient/Caregiver Goals Pt's goals for PT are to decrease pain and popping. PT-OP-C Subjective Start: 09/29/19 12:45 Freq: Status: Active Protocol: Document 11/22/19 13:03 HH (Rec: 11/22/19 13:52 HH [id number]) OP-PT Subjective Patient Comments Patient Comments My shoulder snapped a lot for the past few days and i dont know why. Glo been still doing my exercises. Patient Reported Progress Same PT-OP-J Posture/Palpation/Skin Start: 09/29/19 12:45 Freq: Status: Active Protocol: Document 09/29/19 16:46 MB (Rec: 09/29/19 18:48 MB [id number]) Posture Evaluation Comments Posture Comments Standing: forward head, rounded shoulders, Dowager's hump, decreased lumbar lordosis, right shoulder lower and right scapula more protracted and elevation compared to the left (pt is right handed), increased thoracic kyphosis, anterior tilt pelvis and high left iliac crest compared to the right. PT-OP-K Range of Motion Start: 09/29/19 12:45 Freq: Status: Active Protocol: Document 09/29/19 16:46 MB (Rec: 09/29/19 18:48 MB [id number]) Cervical Spine Range of Motion Cervical Spine Active Testing Position Standing Flexion 41 Extension 20 Rotation Left 40 Rotation Right 49 Lateral Flexion Left 10 Lateral Flexion Right 10 Shoulder Goniometric Range of Motion Shoulder Left Shoulder ROM WFL Yes Testing Position Standing Right Passive Shoulder ROM WFL No Testing Position Supine External Rotation at 0 degrees Abduction 90 Internal Rotation 40 Right Active Shoulder ROM WFL Yes Testing Position Standing Internal Rotation Behind Back (text) Normal for dominant hand and reaches to mid scapular area Shoulder ROM Limitations Comments Pt reports right shoulder pain 5/10 with flexion, 6/10 with IR behind back PT-OP-M Strength Start: 09/29/19 12:45 Freq: Status: Active Protocol: Document 09/29/19 16:46 MB (Rec: 09/29/19 18:48 MB [id number]) Shoulder Strength Shoulder Manual Muscle Testing Left Flexion 5 Normal Abduction (C5) 5 Normal External Rotation 5 Normal Internal Rotation 5 Normal Right Comments Deferred d/t pain Elbow/Forearm Strength Elbow and Forearm Manual Muscle Testing Left Flexion (C6) 5 Normal Extension (C7) 5 Normal Pronation 5 Normal Supination 5 Normal Right Flexion (C6) 5 Normal Extension (C7) 5 Normal Pronation 4 Good Supination 4 Good Comments Pt reports 4/10 pain with right supination Wrist Strength Wrist Manual Muscle Testing Left Flexion (C7) 5 Normal Extension (C6) 5 Normal Right Flexion (C7) 5 Normal Extension (C6) 5 Normal PT-OP-Q Treatments Start: 09/29/19 12:45 Freq: Status: Active Protocol: Document 11/22/19 13:03 HH (Rec: 11/22/19 13:52 HH [id number]) Therapeutic Exercises Prone Exercises scap row Prone Exercise Name with scap squeeze Side bilateral Reps/Minutes 8 x2 scapular retraction Prone Exercise Name scap squeeze with arm extended Side bilateral Reps/Minutes 8 x2 Comments 2sec hold at top Sidelying Exercises horizontal abduction Sidelying Exercise Name without Tspine rotation, with scap squeeze Side right Equipment Used 2lbs DB Reps/Minutes 6 x2 Comments cues on avoiding trunk rotation R sidelying open book Sidelying Exercise Name without lumbar rotation and shoulder extension Side right Reps/Minutes 8 x 5 Comments cues on avoiding excessive shoulder extension Manual Therapy Treatment Soft Tissue Mobilization R pecs, upper trap Mobilization Type Sustained Pressure,Trigger Point Release Intensity/Depth Moderate Body Position Supine Comments with R arm at abducted and flexed active release at R RTC Mobilization Type Sustained Pressure,Trigger Point Release Intensity/Depth Moderate Body Position Supine Joint Mobilizations PA mob Joint T-spine 1-8 Direction PA Grade III Body Position Prone Reps/Duration 2 mins Comments with inhalation and exhalation to facilitate relaxation. PT-OP-T Assessment and Plan Start: 09/29/19 12:45 Freq: Status: Active Protocol: Document 11/22/19 13:03 (Rec: 11/22/19 13:52 [id number]) Physical Therapy Assessment Goals 4 Short Term Goal (STG) 11/14 cont in progress Pt has been compliant to her HEP with good understanding and correct mechanics Sewing Machine Assembler Goal (LTG) Pt will perform progressive HEP with I including postural, flexibility and strengthening exercises to increase right arm strength and decrease pain by 11/29/2019. LTG Duration 8 weeks Three Sewing Machine Assembler Goal (LTG) Pt will present with an improved QuickDASH score to reflect no more than 10% impairment to allow return to pain-free IADLs by 11/29/2019. LTG Duration 8 weeks Two Short Term Goal (STG) 11/14 Pt had a pain free day on thursday and overall reduced pain since last week. Senior Care Goal (LTG) Pt will report an overall 80% improvement in right shoulder pain by 11/29/2019 to allow improved sleep and quality of life. LTG Duration 8 weeks One Short Term Goal (STG) Pt has improved abd and ER strength by 1/2 MMT grade 11/14 Sewing Machine Assembler Goal (LTG) Pt will present with right shoulder flexion, abduction, ER and IR strength to at lesat 4/5 by 11/29/2019 to allow improved use of right arm for self-care and walking dog. LTG Duration 8 weeks Assessment Summary Assessment Reviewed HEP with pt today and pt continously overextend her shoulder during hor abduction , SL abduction which placed her GH into excessive anterior translation. Spent time to reeducate pt's bodymechanics this vist and pt has minimal pain. Physical Therapy Plan Next Visit Focus/Plan Next Note Type Treatment Note Next Visit Plan cont manual work to assist posterior glide of humeral head strengthening of RTC in SL prone and supine position, release of pec scap stabiization Progression over SL to seated ex.
--- NOTE | 2019-11-24 13:51 | PT.OTN ---
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 She states that she did not injure it. She had a MRI. The orthopedist states that it was an old tear. Pt is right handed. Pt has pain in bed and likes to sleep on her side. She does not use cervical support but is interested in learning about better sleeping position . She reports pain when she puts her arms on the wide arm rests of the recliner. She occ walks her dog on her right side. She got better with PT. Three weeks ago, she woke up and the right shoulder pain was back. Now, her right shoulder gets stuck and it pops. Pt reports 6/10 pain in anterior, lateral and posterior right shoulder. 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 INR is WNLs Prior Treatments and Tests PT and her right shoulder pain got better. She thinks that the movement helped. Treatment Goals Patient/Caregiver Goals Pt's goals for PT are to decrease pain and popping. PT-OP-C Subjective Start: 09/29/19 12:45 Freq: Status: Active Protocol: Document 11/24/19 13:00 HH (Rec: 11/24/19 13:50 HH [id number]) OP-PT Subjective Patient Comments Patient Comments Im not as sore now and i have better understanding with my shoulder position. Patient Reported Progress Improving PT-OP-J Posture/Palpation/Skin Start: 09/29/19 12:45 Freq: Status: Active Protocol: Document 09/29/19 16:46 MB (Rec: 09/29/19 18:48 MB [id number]) Posture Evaluation Comments Posture Comments Standing: forward head, rounded shoulders, Dowager's hump, decreased lumbar lordosis, right shoulder lower and right scapula more protracted and elevation compared to the left (pt is right handed), increased thoracic kyphosis, anterior tilt pelvis and high left iliac crest compared to the right. PT-OP-K Range of Motion Start: 09/29/19 12:45 Freq: Status: Active Protocol: Document 09/29/19 16:46 MB (Rec: 09/29/19 18:48 MB [id number]) Cervical Spine Range of Motion Cervical Spine Active Testing Position Standing Flexion 41 Extension 20 Rotation Left 40 Rotation Right 49 Lateral Flexion Left 10 Lateral Flexion Right 10 Shoulder Goniometric Range of Motion Shoulder Left Shoulder ROM WFL Yes Testing Position Standing Right Passive Shoulder ROM WFL No Testing Position Supine External Rotation at 0 degrees Abduction 90 Internal Rotation 40 Right Active Shoulder ROM WFL Yes Testing Position Standing Internal Rotation Behind Back (text) Normal for dominant hand and reaches to mid scapular area Shoulder ROM Limitations Comments Pt reports right shoulder pain 5/10 with flexion, 6/10 with IR behind back PT-OP-M Strength Start: 09/29/19 12:45 Freq: Status: Active Protocol: Document 09/29/19 16:46 MB (Rec: 09/29/19 18:48 MB [id number]) Shoulder Strength Shoulder Manual Muscle Testing Left Flexion 5 Normal Abduction (C5) 5 Normal External Rotation 5 Normal Internal Rotation 5 Normal Right Comments Deferred d/t pain Elbow/Forearm Strength Elbow and Forearm Manual Muscle Testing Left Flexion (C6) 5 Normal Extension (C7) 5 Normal Pronation 5 Normal Supination 5 Normal Right Flexion (C6) 5 Normal Extension (C7) 5 Normal Pronation 4 Good Supination 4 Good Comments Pt reports 4/10 pain with right supination Wrist Strength Wrist Manual Muscle Testing Left Flexion (C7) 5 Normal Extension (C6) 5 Normal Right Flexion (C7) 5 Normal Extension (C6) 5 Normal PT-OP-Q Treatments Start: 09/29/19 12:45 Freq: Status: Active Protocol: Document 11/24/19 13:00 HH (Rec: 11/24/19 13:50 HH [id number]) Therapeutic Exercises Sidelying Exercises SL abduction Side right Equipment Used 1b for 8 reps Reps/Minutes 8x2 horizontal abduction Sidelying Exercise Name without Tspine rotation, with scap squeeze Side right Equipment Used 2lbs DB Reps/Minutes 6 x2 Comments no pain noted R GH ER/IR with 1 lbs Side bilateral Equipment Used 2 lbs Reps/Minutes 8 x2 Comments mid range only Sitting Exercises OH mamie Sitting Exercise Name full range for ABD FLEX Side left Equipment Used OHp mamie Reps/Minutes 10 x 2 Comments slight discomfort for ABD seated pull apart Side bilateral Equipment Used yellow band Reps/Minutes 8times x2 Comments no pain noted. cues on scap squeeze Standing Exercises shd extension Standing Exercise Name scap squeeze first then shd extension Side bilateral Equipment Used PVC pipe Reps/Minutes 10 x2 Manual Therapy Treatment Soft Tissue Mobilization R pecs, upper trap Mobilization Type Sustained Pressure,Trigger Point Release Intensity/Depth Moderate Body Position Supine Comments with R arm at abducted and flexed active release at R RTC Mobilization Type Sustained Pressure,Trigger Point Release Intensity/Depth Moderate Body Position Supine PT-OP-T Assessment and Plan Start: 09/29/19 12:45 Freq: Status: Active Protocol: Document 11/24/19 13:00 HH (Rec: 11/24/19 13:50 HH [id number]) Physical Therapy Assessment Goals 4 Short Term Goal (STG) 11/14 cont in progress Pt has been compliant to her HEP with good understanding and correct mechanics University Librarian Goal (LTG) Pt will perform progressive HEP with I including postural, flexibility and strengthening exercises to increase right arm strength and decrease pain by 11/29/2019. LTG Duration 8 weeks Three University Librarian Goal (LTG) Pt will present with an improved QuickDASH score to reflect no more than 10% impairment to allow return to pain-free IADLs by 11/29/2019. LTG Duration 8 weeks Two Short Term Goal (STG) 11/14 Pt had a pain free day on thursday and overall reduced pain since last week. Usp Goal (LTG) Pt will report an overall 80% improvement in right shoulder pain by 11/29/2019 to allow improved sleep and quality of life. LTG Duration 8 weeks One Short Term Goal (STG) Pt has improved abd and ER strength by 1/2 MMT grade 11/14 University Librarian Goal (LTG) Pt will present with right shoulder flexion, abduction, ER and IR strength to at lesat 4/5 by 11/29/2019 to allow improved use of right arm for self-care and walking dog. LTG Duration 8 weeks Assessment Summary Assessment Pt shows improved understanding with body position during HEP. No irritation noted. Cont scap stabilization ex today and pt papo tx very well. Will add more scap stabilization and strengthening HEP next week. Physical Therapy Plan Next Visit Focus/Plan Next Note Type Treatment Note Next Visit Plan cont manual work to assist posterior glide of humeral head strengthening of RTC in SL prone and supine position, release of pec scap stabiization Progression over SL to seated ex.
--- NOTE | 2019-11-28 16:00 | PT.OPPOC ---
Physical, Occupational & Speech Therapy At [facility] Current Diagnoses Unspecified rotator cuff tear or rupture of unspecified shoulder, not specified as traumatic (11/28/19) Visit Care Team Role Provider Type Francis Benton MD Attending Provider Physician Primary Care Provider Referring Provider Specialty: Internal Medicine Address: [address] [place] [address], [address], [address] Email: [email or web address] Plan Of Care PT-OP-T Assessment and Plan Start: 09/29/19 12:45 Freq: Status: Active Protocol: Document 11/28/19 14:32 HH (Rec: 11/28/19 16:16 HH [id number]) Physical Therapy Assessment Goals 4 Short Term Goal (STG) 11/14 cont in progress Pt has been compliant to her HEP with good understanding and correct mechanics 11/27 Pt has been compliant to her HEP but she has difficulty maintaining correct body mechanics with strengthening exercises. She needs frequent cues during session to facilitate proper muscle activation. Intermediate Goal (LTG) Pt will perform progressive HEP with I including postural, flexibility and strengthening exercises to increase right arm strength and decrease pain by 11/29/2019. LTG Duration 8 weeks Three Intermediate Goal (LTG) Pt will present with an improved QuickDASH score to reflect no more than 10% impairment to allow return to pain-free IADLs by 11/29/2019. LTG Duration 8 weeks Two Short Term Goal (STG) 11/14 Pt had a pain free day on thursday and overall reduced pain since last week. 11/27 pt overall has reduced pain for half of the week Intermediate Goal (LTG) Pt will report an overall 80% improvement in right shoulder pain by 11/29/2019 to allow improved sleep and quality of life. LTG Duration 8 weeks One Short Term Goal (STG) Pt has improved abd and ER strength by 1/2 MMT grade 11/14 11/27 goal met with abd and ER strength. Intermediate Goal (LTG) Pt will present with right shoulder flexion, abduction, ER and IR strength to at lesat 4/5 by 11/29/2019 to allow improved use of right arm for self-care and walking dog. LTG Duration 8 weeks Assessment Summary Assessment Pt had a flare up on Thursday for unknown reason. This session cont focus on scap stabilization and initiated RTC strengthening. Pt cont to need constant cues for positioning and she did not c/ o much discomfort whenever she retracted her scaps for other therex. This is going to be a longer rehab than usual since pt has poor body awareness and movement retention and often needed max cues for HEP. Will cont POC 2x/ week through november and 1x/ wk for Dec. Physical Therapy Plan Frequency and Duration Frequency of Treatment 2x/wk November, 1/wk Dec Duration of Treatment 8 weeks Plan of Care Start Date 11/28/19 Plan of Care End Date 01/30/20 Next Visit Focus/Plan Next Note Type Treatment Note Next Visit Plan REVIEW HEP with pt for body mechanics Thoracic extension cont manual work to assist posterior glide of humeral head strengthening of RTC in [place] mamie, UBE seated pull apart, scap squeeze, scap row, prone horizontal abd, Plan of Care Dates Plan of Care Start Date 11/28/19 Plan of Care End Date 01/30/20 Electronically Signed by: Javon Zelaya, PT 12/01/19 [id number] Please Sign and Return: I have reviewed this Plan of Care and certify that the skilled therapy services above are required to meet the patient?s needs. Physician Signature Date Printed Name and Credentials Clinical Instructor Signature Printed Name and Credentials
--- NOTE | 2019-11-28 16:16 | PT.OTN ---
Current Diagnoses Unspecified rotator cuff tear or rupture of unspecified shoulder, not specified as traumatic (11/28/19) Physical Therapy Treatment Note PT-OP-A Visit Information Start: 09/29/19 12:45 Freq: Status: Active Protocol: Document 11/28/19 14:32 HH (Rec: 11/28/19 16:16 HH [id number]) Out-Patient Physical Therapy Visit Information Visit Information Visit Type Treatment Note Visit Start Time 14:32 Visit Stop Time 15:15 Total Visit Minutes 44 Visit Number 14 Number of POKE IN Visits 0 PT-OP-B Current Condition Start: 09/29/19 12:45 Freq: Status: Active Protocol: Document 09/29/19 16:46 MB (Rec: 09/29/19 17:42 MB [id number]) Current Condition History of Current Condition Onset Date 2018 Current Complaints Right rotator cuff pain History of Current Condition Pt reports insidious right rotator cuff tear in 2018. She states that she did not injure it. She had a MRI. The orthopedist states that it was an old tear. Pt is right handed. Pt has pain in bed and likes to sleep on her side. She does not use cervical support but is interested in learning about better sleeping position . She reports pain when she puts her arms on the wide arm rests of the recliner. She occ walks her dog on her right side. She got better with PT. Three weeks ago, she woke up and the right shoulder pain was back. Now, her right shoulder gets stuck and it pops. Pt reports 6/10 pain in anterior, lateral and posterior right shoulder. 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 INR is WNLs Prior Treatments and Tests PT and her right shoulder pain got better. She thinks that the movement helped. Treatment Goals Patient/Caregiver Goals Pt's goals for PT are to decrease pain and popping. PT-OP-C Subjective Start: 09/29/19 12:45 Freq: Status: Active Protocol: Document 11/28/19 14:32 HH (Rec: 11/28/19 16:16 HH [id number]) OP-PT Subjective Patient Comments Patient Comments My shoulder is hurting me on Thursday and i dont know why. PT-OP-J Posture/Palpation/Skin Start: 09/29/19 12:45 Freq: Status: Active Protocol: Document 09/29/19 16:46 MB (Rec: 09/29/19 18:48 MB [id number]) Posture Evaluation Comments Posture Comments Standing: forward head, rounded shoulders, Dowager's hump, decreased lumbar lordosis, right shoulder lower and right scapula more protracted and elevation compared to the left (pt is right handed), increased thoracic kyphosis, anterior tilt pelvis and high left iliac crest compared to the right. PT-OP-K Range of Motion Start: 09/29/19 12:45 Freq: Status: Active Protocol: Document 09/29/19 16:46 MB (Rec: 09/29/19 18:48 MB [id number]) Cervical Spine Range of Motion Cervical Spine Active Testing Position Standing Flexion 41 Extension 20 Rotation Left 40 Rotation Right 49 Lateral Flexion Left 10 Lateral Flexion Right 10 Shoulder Goniometric Range of Motion Shoulder Left Shoulder ROM WFL Yes Testing Position Standing Right Passive Shoulder ROM WFL No Testing Position Supine External Rotation at 0 degrees Abduction 90 Internal Rotation 40 Right Active Shoulder ROM WFL Yes Testing Position Standing Internal Rotation Behind Back (text) Normal for dominant hand and reaches to mid scapular area Shoulder ROM Limitations Comments Pt reports right shoulder pain 5/10 with flexion, 6/10 with IR behind back PT-OP-M Strength Start: 09/29/19 12:45 Freq: Status: Active Protocol: Document 09/29/19 16:46 MB (Rec: 09/29/19 18:48 MB [id number]) Shoulder Strength Shoulder Manual Muscle Testing Left Flexion 5 Normal Abduction (C5) 5 Normal External Rotation 5 Normal Internal Rotation 5 Normal Right Comments Deferred d/t pain Elbow/Forearm Strength Elbow and Forearm Manual Muscle Testing Left Flexion (C6) 5 Normal Extension (C7) 5 Normal Pronation 5 Normal Supination 5 Normal Right Flexion (C6) 5 Normal Extension (C7) 5 Normal Pronation 4 Good Supination 4 Good Comments Pt reports 4/10 pain with right supination Wrist Strength Wrist Manual Muscle Testing Left Flexion (C7) 5 Normal Extension (C6) 5 Normal Right Flexion (C7) 5 Normal Extension (C6) 5 Normal PT-OP-Q Treatments Start: 09/29/19 12:45 Freq: Status: Active Protocol: Document 11/28/19 14:32 HH (Rec: 11/28/19 16:16 HH [id number]) Therapeutic Exercises Sidelying Exercises R GH ER/IR with 1 lbs Side bilateral Equipment Used 2 lbs Reps/Minutes 8 x2 Comments mid range only Sitting Exercises [place] mamie Sitting Exercise Name full range for ABD FLEX Side left Equipment Used OHp mamie Reps/Minutes 10 x 2 Comments slight discomfort for ABD seated pull apart Sitting Exercise Name elbow at 90flexion Side bilateral Equipment Used yellow band Reps/Minutes 8times x2 Comments for HEP, no pain noted with cues on scap retraction Standing Exercises shd extension Standing Exercise Name scap squeeze first then shd extension Side bilateral Equipment Used PVC pipe Reps/Minutes 10 x2 Manual Therapy Treatment Soft Tissue Mobilization R pecs, upper trap Mobilization Type Sustained Pressure,Trigger Point Release Intensity/Depth Moderate Body Position Supine Comments with R arm at abducted and flexed active release at R RTC Mobilization Type Sustained Pressure,Trigger Point Release Intensity/Depth Moderate Body Position Supine PT-OP-T Assessment and Plan Start: 09/29/19 12:45 Freq: Status: Active Protocol: Document 11/28/19 14:32 (Rec: 11/28/19 16:16 [id number]) Physical Therapy Assessment Goals 4 Short Term Goal (STG) 11/14 cont in progress Pt has been compliant to her HEP with good understanding and correct mechanics Construction Superintendent Goal (LTG) Pt will perform progressive HEP with I including postural, flexibility and strengthening exercises to increase right arm strength and decrease pain by 11/29/2019. LTG Duration 8 weeks Three Intermediate Goal (LTG) Pt will present with an improved QuickDASH score to reflect no more than 10% impairment to allow return to pain-free IADLs by 11/29/2019. LTG Duration 8 weeks Two Short Term Goal (STG) 11/14 Pt had a pain free day on thursday and overall reduced pain since last week. Intermediate Goal (LTG) Pt will report an overall 80% improvement in right shoulder pain by 11/29/2019 to allow improved sleep and quality of life. LTG Duration 8 weeks One Short Term Goal (STG) Pt has improved abd and ER strength by 1/2 MMT grade 11/14 Intermediate Goal (LTG) Pt will present with right shoulder flexion, abduction, ER and IR strength to at lesat 4/5 by 11/29/2019 to allow improved use of right arm for self-care and walking dog. LTG Duration 8 weeks Assessment Summary Assessment Pt had a flare up on Thursday for unknown reason. This session cont focus on scap stabilization and initiated RTC strengthening. Pt cont to need constant cues for positioning and she did not c/ o much discomfort whenever she retracted her scaps for other therex. Physical Therapy Plan Next Visit Focus/Plan Next Note Type Treatment Note Next Visit Plan cont manual work to assist posterior glide of humeral head strengthening of RTC in [place] mamie, UBE seated pull apart, scap squeeze, scap row, prone hor abd,
--- NOTE | 2019-12-01 15:20 | PT.OTN ---
Current Diagnoses Unspecified rotator cuff tear or rupture of unspecified shoulder, not specified as traumatic (12/01/19) Physical Therapy Treatment Note PT-OP-A Visit Information Start: 09/29/19 12:45 Freq: Status: Active Protocol: Document 12/01/19 14:41 SP (Rec: 12/01/19 15:43 SP [id number]) Out-Patient Physical Therapy Visit Information Visit Information Visit Type Treatment Note Visit Start Time 14:41 Visit Stop Time 15:20 Total Visit Minutes 39 Visit Number 15 Number of OIL SCOUT Visits 1 PT-OP-B Current Condition Start: 09/29/19 12:45 Freq: Status: Active Protocol: Document 09/29/19 16:46 MB (Rec: 09/29/19 17:42 MB [id number]) Current Condition History of Current Condition Onset Date 2018 Current Complaints Right rotator cuff pain History of Current Condition Pt reports insidious right rotator cuff tear in 2018. She states that she did not injure it. She had a MRI. The orthopedist states that it was an old tear. Pt is right handed. Pt has pain in bed and likes to sleep on her side. She does not use cervical support but is interested in learning about better sleeping position . She reports pain when she puts her arms on the wide arm rests of the recliner. She occ walks her dog on her right side. She got better with PT. Three weeks ago, she woke up and the right shoulder pain was back. Now, her right shoulder gets stuck and it pops. Pt reports 6/10 pain in anterior, lateral and posterior right shoulder. 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 INR is WNLs Prior Treatments and Tests PT and her right shoulder pain got better. She thinks that the movement helped. Treatment Goals Patient/Caregiver Goals Pt's goals for PT are to decrease pain and popping. PT-OP-C Subjective Start: 09/29/19 12:45 Freq: Status: Active Protocol: Document 12/01/19 14:41 SP (Rec: 12/01/19 15:43 SP [id number]) OP-PT Subjective Patient Comments Patient Comments My R shld is having a Moderate day due probably to yard completed yesterday. PT-OP-J Posture/Palpation/Skin Start: 09/29/19 12:45 Freq: Status: Active Protocol: Document 09/29/19 16:46 MB (Rec: 09/29/19 18:48 MB [id number]) Posture Evaluation Comments Posture Comments Standing: forward head, rounded shoulders, Dowager's hump, decreased lumbar lordosis, right shoulder lower and right scapula more protracted and elevation compared to the left (pt is right handed), increased thoracic kyphosis, anterior tilt pelvis and high left iliac crest compared to the right. PT-OP-K Range of Motion Start: 09/29/19 12:45 Freq: Status: Active Protocol: Document 09/29/19 16:46 MB (Rec: 09/29/19 18:48 MB [id number]) Cervical Spine Range of Motion Cervical Spine Active Testing Position Standing Flexion 41 Extension 20 Rotation Left 40 Rotation Right 49 Lateral Flexion Left 10 Lateral Flexion Right 10 Shoulder Goniometric Range of Motion Shoulder Left Shoulder ROM WFL Yes Testing Position Standing Right Passive Shoulder ROM WFL No Testing Position Supine External Rotation at 0 degrees Abduction 90 Internal Rotation 40 Right Active Shoulder ROM WFL Yes Testing Position Standing Internal Rotation Behind Back (text) Normal for dominant hand and reaches to mid scapular area Shoulder ROM Limitations Comments Pt reports right shoulder pain 5/10 with flexion, 6/10 with IR behind back PT-OP-M Strength Start: 09/29/19 12:45 Freq: Status: Active Protocol: Document 09/29/19 16:46 MB (Rec: 09/29/19 18:48 MB [id number]) Shoulder Strength Shoulder Manual Muscle Testing Left Flexion 5 Normal Abduction (C5) 5 Normal External Rotation 5 Normal Internal Rotation 5 Normal Right Comments Deferred d/t pain Elbow/Forearm Strength Elbow and Forearm Manual Muscle Testing Left Flexion (C6) 5 Normal Extension (C7) 5 Normal Pronation 5 Normal Supination 5 Normal Right Flexion (C6) 5 Normal Extension (C7) 5 Normal Pronation 4 Good Supination 4 Good Comments Pt reports 4/10 pain with right supination Wrist Strength Wrist Manual Muscle Testing Left Flexion (C7) 5 Normal Extension (C6) 5 Normal Right Flexion (C7) 5 Normal Extension (C6) 5 Normal PT-OP-Q Treatments Start: 09/29/19 12:45 Freq: Status: Active Protocol: Document 12/01/19 14:41 SP (Rec: 12/01/19 15:43 SP [id number]) Cardio Equipment Upper Body Ergometer (UBE) Duration (Minutes) 4 RPM 120 Seat Position 8 Therapeutic Exercises Sidelying Exercises SL abduction Side right Equipment Used AROM Reps/Minutes 8x2 Comments contact scap retract/depress / GH jt inf glide moderate pain with feedback horizontal abduction Sidelying Exercise Name without Tspine rotation, with scap squeeze Side right Equipment Used 2lbs DB Reps/Minutes 6 x2 Comments contact scap retract/depress / GH jt inf glide minimal pain with feedback R GH ER/IR with 1 lbs Sidelying Exercise Name R>L Side right Equipment Used AROM Comments contact scap retract/depress / GH jt inf glide no pain with feedback Sitting Exercises OH mamie Sitting Exercise Name full range for ABD FLEX Side left Equipment Used OHp mamie Reps/Minutes 10 x 2 Comments slight discomfort for ABD Standing Exercises B ER elbow bent 100 deg Resistance Lv 2 Reps/Minutes x10 Comments cued scap retract/depress then shld Er shd extension Standing Exercise Name scap squeeze first then shd extension Side bilateral Equipment Used PVC pipe Reps/Minutes 10 x2 Comments cued scap stab and depression door stretch Standing Exercise Name review HEP Side right Reps/Minutes 10 sec hold Comments cues on avoid scap elevation PT-OP-T Assessment and Plan Start: 09/29/19 12:45 Freq: Status: Active Protocol: Document 12/01/19 14:41 SP (Rec: 12/01/19 15:43 SP [id number]) Physical Therapy Assessment Goals 4 Short Term Goal (STG) 11/14 cont in progress Pt has been compliant to her HEP with good understanding and correct mechanics 11/27 Pt has been compliant to her HEP but she has difficulty maintaining correct body mechanics with strengthening exercises. She needs frequent cues during session to facilitate proper muscle activation. Mcc Goal (LTG) Pt will perform progressive HEP with I including postural, flexibility and strengthening exercises to increase right arm strength and decrease pain by 11/29/2019. LTG Duration 8 weeks Three Mcc Goal (LTG) Pt will present with an improved QuickDASH score to reflect no more than 10% impairment to allow return to pain-free IADLs by 11/29/2019. LTG Duration 8 weeks Two Short Term Goal (STG) 11/14 Pt had a pain free day on thursday and overall reduced pain since last week. 11/27 pt overall has reduced pain for half of the week Combination Building Inspector Goal (LTG) Pt will report an overall 80% improvement in right shoulder pain by 11/29/2019 to allow improved sleep and quality of life. LTG Duration 8 weeks One Short Term Goal (STG) Pt has improved abd and ER strength by 1/2 MMT grade 11/14 11/27 goal met with abd and ER strength. Mcc Goal (LTG) Pt will present with right shoulder flexion, abduction, ER and IR strength to at lesat 4/5 by 11/29/2019 to allow improved use of right arm for self-care and walking dog. LTG Duration 8 weeks Assessment Summary Assessment Pt reported pulleys R shld FF / ABD 08/25 discomfort but ok to improve ROM. UBE more tolerated retro than forward, noted tiring quickly only completed 4 min total. Pt required continuous cuing and utilized mirror for self feedback for scap retraction, depression and inferior glide of humerous and wrist neutral positioning to improve ROM with minimal to no pain. Pt decreased in 1-2#DB to AROM sidelying to improve proper form. Physical Therapy Plan Frequency and Duration Frequency of Treatment 2x/wk November, 1/wk Dec Duration of Treatment 8 weeks Plan of Care Start Date 11/28/19 Plan of Care End Date 01/30/20 Therapeutic Interventions Therapeutic Interventions Aquatic Therapy,Canalithic Repositioning,Home Exercise Program,Manual Therapy, Neuromuscular Re-education, Patient/Caregiver Education, Self-Care/Home Management,Soft Tissue Mobilization,Taping, Therapeutic Activities, Therapeutic Exercises Modalities Cold Pack/Ice Massage,Electric Stimulation,Hot Packs, Ultrasound Other Therapeutic Interventions Laser Next Visit Focus/Plan Next Note Type Treatment Note Next Visit Plan Review HEP, assess response to last tx. Continue to emphasize scap stabilization: retract/depress and GH inferior glide. body mechanics Thoracic extension cont manual work to assist posterior glide of humeral head strengthening of RTC in Progress as tolerated scap row , prone horizontal abd,
--- NOTE | 2019-12-06 14:35 | PT.OTN ---
Current Diagnoses Unspecified rotator cuff tear or rupture of unspecified shoulder, not specified as traumatic (12/06/19) Physical Therapy Treatment Note PT-OP-A Visit Information Start: 09/29/19 12:45 Freq: Status: Active Protocol: Document 12/06/19 13:47 HH (Rec: 12/06/19 14:35 HH [id number]) Out-Patient Physical Therapy Visit Information Visit Information Visit Type Treatment Note Visit Start Time 13:46 Visit Stop Time 14:30 Total Visit Minutes 44 Visit Number 16 Number of TOBACCO DRYING MACHINE OPERATOR Visits 0 PT-OP-B Current Condition Start: 09/29/19 12:45 Freq: Status: Active Protocol: Document 09/29/19 16:46 MB (Rec: 09/29/19 17:42 MB [id number]) Current Condition History of Current Condition Onset Date 2018 Current Complaints Right rotator cuff pain History of Current Condition Pt reports insidious right rotator cuff tear in 2018. She states that she did not injure it. She had a MRI. The orthopedist states that it was an old tear. Pt is right handed. Pt has pain in bed and likes to sleep on her side. She does not use cervical support but is interested in learning about better sleeping position . She reports pain when she puts her arms on the wide arm rests of the recliner. She occ walks her dog on her right side. She got better with PT. Three weeks ago, she woke up and the right shoulder pain was back. Now, her right shoulder gets stuck and it pops. Pt reports 6/10 pain in anterior, lateral and posterior right shoulder. 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 INR is WNLs Prior Treatments and Tests PT and her right shoulder pain got better. She thinks that the movement helped. Treatment Goals Patient/Caregiver Goals Pt's goals for PT are to decrease pain and popping. PT-OP-C Subjective Start: 09/29/19 12:45 Freq: Status: Active Protocol: Document 12/06/19 13:47 HH (Rec: 12/06/19 14:35 HH [id number]) OP-PT Subjective Patient Comments Patient Comments I got really sore after last visit but able to get a little better during the weekend. PT-OP-J Posture/Palpation/Skin Start: 09/29/19 12:45 Freq: Status: Active Protocol: Document 09/29/19 16:46 MB (Rec: 09/29/19 18:48 MB [id number]) Posture Evaluation Comments Posture Comments Standing: forward head, rounded shoulders, Dowager's hump, decreased lumbar lordosis, right shoulder lower and right scapula more protracted and elevation compared to the left (pt is right handed), increased thoracic kyphosis, anterior tilt pelvis and high left iliac crest compared to the right. PT-OP-K Range of Motion Start: 09/29/19 12:45 Freq: Status: Active Protocol: Document 09/29/19 16:46 MB (Rec: 09/29/19 18:48 MB [id number]) Cervical Spine Range of Motion Cervical Spine Active Testing Position Standing Flexion 41 Extension 20 Rotation Left 40 Rotation Right 49 Lateral Flexion Left 10 Lateral Flexion Right 10 Shoulder Goniometric Range of Motion Shoulder Left Shoulder ROM WFL Yes Testing Position Standing Right Passive Shoulder ROM WFL No Testing Position Supine External Rotation at 0 degrees Abduction 90 Internal Rotation 40 Right Active Shoulder ROM WFL Yes Testing Position Standing Internal Rotation Behind Back (text) Normal for dominant hand and reaches to mid scapular area Shoulder ROM Limitations Comments Pt reports right shoulder pain 5/10 with flexion, 6/10 with IR behind back PT-OP-M Strength Start: 09/29/19 12:45 Freq: Status: Active Protocol: Document 09/29/19 16:46 MB (Rec: 09/29/19 18:48 MB [id number]) Shoulder Strength Shoulder Manual Muscle Testing Left Flexion 5 Normal Abduction (C5) 5 Normal External Rotation 5 Normal Internal Rotation 5 Normal Right Comments Deferred d/t pain Elbow/Forearm Strength Elbow and Forearm Manual Muscle Testing Left Flexion (C6) 5 Normal Extension (C7) 5 Normal Pronation 5 Normal Supination 5 Normal Right Flexion (C6) 5 Normal Extension (C7) 5 Normal Pronation 4 Good Supination 4 Good Comments Pt reports 4/10 pain with right supination Wrist Strength Wrist Manual Muscle Testing Left Flexion (C7) 5 Normal Extension (C6) 5 Normal Right Flexion (C7) 5 Normal Extension (C6) 5 Normal PT-OP-Q Treatments Start: 09/29/19 12:45 Freq: Status: Active Protocol: Document 12/06/19 13:47 HH (Rec: 12/06/19 14:35 HH [id number]) Therapeutic Exercises Prone Exercises semi prone hor abd and extension Side right Reps/Minutes 8 x 2 Comments cues on scap retraction Sidelying Exercises SL abduction Side right Equipment Used AROM Reps/Minutes 8x2 Comments contact scap retract/depress / GH jt inf glide moderate pain with feedback horizontal abduction Sidelying Exercise Name without Tspine rotation, with scap squeeze Side right Equipment Used 2lbs DB Reps/Minutes 6 x2 Comments contact scap retract/depress / GH jt inf glide minimal pain with feedback R GH ER/IR with 1 lbs Sidelying Exercise Name R>L Side right Equipment Used 2lbs Comments contact scap retract/depress / GH jt inf glide no pain with feedback Sitting Exercises OH mamie Sitting Exercise Name full range for ABD FLEX Side left Equipment Used OHp mamie Reps/Minutes 10 x 2 Comments slight discomfort for ABD Standing Exercises Scapular retraction with elbows straight Side bilateral Equipment Used level 1 Reps/Minutes 8 x2 Comments cues on scap retraction Manual Therapy Treatment Joint Mobilizations GH posterior glide Joint GHJ Direction posterior Grade III Body Position Supine Reps/Duration 6 mins PT-OP-T Assessment and Plan Start: 09/29/19 12:45 Freq: Status: Active Protocol: Document 12/06/19 13:47 HH (Rec: 12/06/19 14:35 HH [id number]) Physical Therapy Assessment Goals 4 Short Term Goal (STG) 11/14 cont in progress Pt has been compliant to her HEP with good understanding and correct mechanics 11/27 Pt has been compliant to her HEP but she has difficulty maintaining correct body mechanics with strengthening exercises. She needs frequent cues during session to facilitate proper muscle activation. Product Marketing Analyst Goal (LTG) Pt will perform progressive HEP with I including postural, flexibility and strengthening exercises to increase right arm strength and decrease pain by 11/29/2019. LTG Duration 8 weeks Three Product Marketing Analyst Goal (LTG) Pt will present with an improved QuickDASH score to reflect no more than 10% impairment to allow return to pain-free IADLs by 11/29/2019. LTG Duration 8 weeks Two Short Term Goal (STG) 11/14 Pt had a pain free day on thursday and overall reduced pain since last week. 11/27 pt overall has reduced pain for half of the week Product Marketing Analyst Goal (LTG) Pt will report an overall 80% improvement in right shoulder pain by 11/29/2019 to allow improved sleep and quality of life. LTG Duration 8 weeks One Short Term Goal (STG) Pt has improved abd and ER strength by 1/2 MMT grade 11/14 11/27 goal met with abd and ER strength. Product Marketing Analyst Goal (LTG) Pt will present with right shoulder flexion, abduction, ER and IR strength to at lesat 4/5 by 11/29/2019 to allow improved use of right arm for self-care and walking dog. LTG Duration 8 weeks Assessment Summary Assessment Pt papo tx very well with minimal discomfort. Tx cont focused on scap stabilizatoin and RTC strengthening. Pt needs max cues for scap retraction. Cont POC 1x/week x 4 weeks Physical Therapy Plan Next Visit Focus/Plan Next Note Type Treatment Note Next Visit Plan Review HEP, assess response to last tx. Continue to emphasize scap stabilization: retract/depress and GH inferior glide. body mechanics Thoracic extension cont manual work to assist posterior glide of humeral head strengthening of RTC in Progress as tolerated scap row , prone horizontal abd,
--- NOTE | 2019-12-13 16:07 | PT.OTN ---
Current Diagnoses Unspecified rotator cuff tear or rupture of unspecified shoulder, not specified as traumatic (12/13/19) Physical Therapy Treatment Note PT-OP-A Visit Information Start: 09/29/19 12:45 Freq: Status: Active Protocol: Document 12/13/19 14:34 HH (Rec: 12/13/19 16:06 HH [id number]) Out-Patient Physical Therapy Visit Information Visit Information Visit Type Treatment Note Visit Start Time 14:34 Visit Stop Time 15:15 Total Visit Minutes 41 Visit Number 17 Number of CHIEF CLOTH FINISHING RANGE OPERATOR Visits 0 PT-OP-B Current Condition Start: 09/29/19 12:45 Freq: Status: Active Protocol: Document 09/29/19 16:46 MB (Rec: 09/29/19 17:42 MB [id number]) Current Condition History of Current Condition Onset Date 2018 Current Complaints Right rotator cuff pain History of Current Condition Pt reports insidious right rotator cuff tear in 2018. She states that she did not injure it. She had a MRI. The orthopedist states that it was an old tear. Pt is right handed. Pt has pain in bed and likes to sleep on her side. She does not use cervical support but is interested in learning about better sleeping position . She reports pain when she puts her arms on the wide arm rests of the recliner. She occ walks her dog on her right side. She got better with PT. Three weeks ago, she woke up and the right shoulder pain was back. Now, her right shoulder gets stuck and it pops. Pt reports 6/10 pain in anterior, lateral and posterior right shoulder. 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 INR is WNLs Prior Treatments and Tests PT and her right shoulder pain got better. She thinks that the movement helped. Treatment Goals Patient/Caregiver Goals Pt's goals for PT are to decrease pain and popping. PT-OP-C Subjective Start: 09/29/19 12:45 Freq: Status: Active Protocol: Document 12/13/19 14:34 HH (Rec: 12/13/19 16:06 HH [id number]) OP-PT Subjective Patient Comments Patient Comments Glo been feeling good over the past couple days. I did feel a bit sore today after using an iron. Patient Reported Progress Improving PT-OP-J Posture/Palpation/Skin Start: 09/29/19 12:45 Freq: Status: Active Protocol: Document 09/29/19 16:46 MB (Rec: 09/29/19 18:48 MB [id number]) Posture Evaluation Comments Posture Comments Standing: forward head, rounded shoulders, Dowager's hump, decreased lumbar lordosis, right shoulder lower and right scapula more protracted and elevation compared to the left (pt is right handed), increased thoracic kyphosis, anterior tilt pelvis and high left iliac crest compared to the right. PT-OP-K Range of Motion Start: 09/29/19 12:45 Freq: Status: Active Protocol: Document 09/29/19 16:46 MB (Rec: 09/29/19 18:48 MB [id number]) Cervical Spine Range of Motion Cervical Spine Active Testing Position Standing Flexion 41 Extension 20 Rotation Left 40 Rotation Right 49 Lateral Flexion Left 10 Lateral Flexion Right 10 Shoulder Goniometric Range of Motion Shoulder Left Shoulder ROM WFL Yes Testing Position Standing Right Passive Shoulder ROM WFL No Testing Position Supine External Rotation at 0 degrees Abduction 90 Internal Rotation 40 Right Active Shoulder ROM WFL Yes Testing Position Standing Internal Rotation Behind Back (text) Normal for dominant hand and reaches to mid scapular area Shoulder ROM Limitations Comments Pt reports right shoulder pain 5/10 with flexion, 6/10 with IR behind back PT-OP-M Strength Start: 09/29/19 12:45 Freq: Status: Active Protocol: Document 09/29/19 16:46 MB (Rec: 09/29/19 18:48 MB [id number]) Shoulder Strength Shoulder Manual Muscle Testing Left Flexion 5 Normal Abduction (C5) 5 Normal External Rotation 5 Normal Internal Rotation 5 Normal Right Comments Deferred d/t pain Elbow/Forearm Strength Elbow and Forearm Manual Muscle Testing Left Flexion (C6) 5 Normal Extension (C7) 5 Normal Pronation 5 Normal Supination 5 Normal Right Flexion (C6) 5 Normal Extension (C7) 5 Normal Pronation 4 Good Supination 4 Good Comments Pt reports 4/10 pain with right supination Wrist Strength Wrist Manual Muscle Testing Left Flexion (C7) 5 Normal Extension (C6) 5 Normal Right Flexion (C7) 5 Normal Extension (C6) 5 Normal PT-OP-Q Treatments Start: 09/29/19 12:45 Freq: Status: Active Protocol: Document 12/13/19 14:34 HH (Rec: 12/13/19 16:06 HH [id number]) Therapeutic Exercises Sidelying Exercises scap strengthening Sidelying Exercise Name upward, downward, retraction and protraction Side right Reps/Minutes 6 times x 2 Comments against PT resistance SL abduction Sidelying Exercise Name no discomfort Side right Equipment Used AROM Reps/Minutes 8x2 Comments contact scap retract/depress / GH jt inf glide moderate pain with feedback horizontal abduction Sidelying Exercise Name without Tspine rotation, with scap squeeze Side right Equipment Used 2lbs DB Reps/Minutes 6 x2 Comments contact scap retract/depress / GH jt inf glide minimal pain with feedback R GH ER/IR with 1 lbs Sidelying Exercise Name R>L Side right Equipment Used 2lbs Comments contact scap retract/depress / GH jt inf glide no pain with feedback Sitting Exercises scap retraction Side bilateral Reps/Minutes 8 x2 Comments no cues needed OH mamie Sitting Exercise Name full range for ABD FLEX Side left Equipment Used OHp mamie Reps/Minutes 10 x 2 Comments slight discomfort for ABD Manual Therapy Treatment Joint Mobilizations GH posterior glide Joint GHJ Direction posterior Grade III Body Position Supine Reps/Duration 6 mins PT-OP-T Assessment and Plan Start: 09/29/19 12:45 Freq: Status: Active Protocol: Document 12/13/19 14:34 (Rec: 12/13/19 16:06 [id number]) Physical Therapy Assessment Goals 4 Short Term Goal (STG) 11/14 cont in progress Pt has been compliant to her HEP with good understanding and correct mechanics 11/27 Pt has been compliant to her HEP but she has difficulty maintaining correct body mechanics with strengthening exercises. She needs frequent cues during session to facilitate proper muscle activation. Custodial Goal (LTG) Pt will perform progressive HEP with I including postural, flexibility and strengthening exercises to increase right arm strength and decrease pain by 11/29/2019. LTG Duration 8 weeks Three Wood Model Builder Goal (LTG) Pt will present with an improved QuickDASH score to reflect no more than 10% impairment to allow return to pain-free IADLs by 11/29/2019. LTG Duration 8 weeks Two Short Term Goal (STG) 11/14 Pt had a pain free day on thursday and overall reduced pain since last week. 11/27 pt overall has reduced pain for half of the week Custodial Goal (LTG) Pt will report an overall 80% improvement in right shoulder pain by 11/29/2019 to allow improved sleep and quality of life. LTG Duration 8 weeks One Short Term Goal (STG) Pt has improved abd and ER strength by 1/2 MMT grade 11/14 11/27 goal met with abd and ER strength. Wood Model Builder Goal (LTG) Pt will present with right shoulder flexion, abduction, ER and IR strength to at lesat 4/5 by 11/29/2019 to allow improved use of right arm for self-care and walking dog. LTG Duration 8 weeks Assessment Summary Assessment Pt cont to progress with minimal discomfort over the past week. Improved scapular control noted today but still needed cues occasionally. Physical Therapy Plan Next Visit Focus/Plan Next Note Type Treatment Note Next Visit Plan Review HEP, assess response to last tx. Continue to emphasize scap stabilization: retract/depress and GH inferior glide. body mechanics Thoracic extension cont manual work to assist posterior glide of humeral head strengthening of RTC in Progress as tolerated scap row , prone horizontal abd,
--- NOTE | 2019-12-20 16:14 | PT.OTN ---
Current Diagnoses Unspecified rotator cuff tear or rupture of unspecified shoulder, not specified as traumatic (12/20/19) Physical Therapy Treatment Note PT-OP-A Visit Information Start: 09/29/19 12:45 Freq: Status: Active Protocol: Document 12/20/19 14:38 HH (Rec: 12/20/19 15:21 HH [id number]) Out-Patient Physical Therapy Visit Information Visit Information Visit Type Treatment Note Visit Start Time 14:36 Visit Stop Time 15:15 Total Visit Minutes 44 Visit Number 18 Number of HEALTHCARE APPLICATIONS ANALYST Visits 0 PT-OP-B Current Condition Start: 09/29/19 12:45 Freq: Status: Active Protocol: Document 09/29/19 16:46 MB (Rec: 09/29/19 17:42 MB [id number]) Current Condition History of Current Condition Onset Date 2018 Current Complaints Right rotator cuff pain History of Current Condition Pt reports insidious right rotator cuff tear in 2018. She states that she did not injure it. She had a MRI. The orthopedist states that it was an old tear. Pt is right handed. Pt has pain in bed and likes to sleep on her side. She does not use cervical support but is interested in learning about better sleeping position . She reports pain when she puts her arms on the wide arm rests of the recliner. She occ walks her dog on her right side. She got better with PT. Three weeks ago, she woke up and the right shoulder pain was back. Now, her right shoulder gets stuck and it pops. Pt reports 6/10 pain in anterior, lateral and posterior right shoulder. 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 INR is WNLs Prior Treatments and Tests PT and her right shoulder pain got better. She thinks that the movement helped. Treatment Goals Patient/Caregiver Goals Pt's goals for PT are to decrease pain and popping. PT-OP-C Subjective Start: 09/29/19 12:45 Freq: Status: Active Protocol: Document 12/20/19 14:38 HH (Rec: 12/20/19 15:21 HH [id number]) OP-PT Subjective Patient Comments Patient Comments Glo been having less snapping on my shoulder. It's been not as bad. Patient Reported Progress Improving PT-OP-J Posture/Palpation/Skin Start: 09/29/19 12:45 Freq: Status: Active Protocol: Document 09/29/19 16:46 MB (Rec: 09/29/19 18:48 MB [id number]) Posture Evaluation Comments Posture Comments Standing: forward head, rounded shoulders, Dowager's hump, decreased lumbar lordosis, right shoulder lower and right scapula more protracted and elevation compared to the left (pt is right handed), increased thoracic kyphosis, anterior tilt pelvis and high left iliac crest compared to the right. PT-OP-K Range of Motion Start: 09/29/19 12:45 Freq: Status: Active Protocol: Document 09/29/19 16:46 MB (Rec: 09/29/19 18:48 MB [id number]) Cervical Spine Range of Motion Cervical Spine Active Testing Position Standing Flexion 41 Extension 20 Rotation Left 40 Rotation Right 49 Lateral Flexion Left 10 Lateral Flexion Right 10 Shoulder Goniometric Range of Motion Shoulder Left Shoulder ROM WFL Yes Testing Position Standing Right Passive Shoulder ROM WFL No Testing Position Supine External Rotation at 0 degrees Abduction 90 Internal Rotation 40 Right Active Shoulder ROM WFL Yes Testing Position Standing Internal Rotation Behind Back (text) Normal for dominant hand and reaches to mid scapular area Shoulder ROM Limitations Comments Pt reports right shoulder pain 5/10 with flexion, 6/10 with IR behind back PT-OP-M Strength Start: 09/29/19 12:45 Freq: Status: Active Protocol: Document 09/29/19 16:46 MB (Rec: 09/29/19 18:48 MB [id number]) Shoulder Strength Shoulder Manual Muscle Testing Left Flexion 5 Normal Abduction (C5) 5 Normal External Rotation 5 Normal Internal Rotation 5 Normal Right Comments Deferred d/t pain Elbow/Forearm Strength Elbow and Forearm Manual Muscle Testing Left Flexion (C6) 5 Normal Extension (C7) 5 Normal Pronation 5 Normal Supination 5 Normal Right Flexion (C6) 5 Normal Extension (C7) 5 Normal Pronation 4 Good Supination 4 Good Comments Pt reports 4/10 pain with right supination Wrist Strength Wrist Manual Muscle Testing Left Flexion (C7) 5 Normal Extension (C6) 5 Normal Right Flexion (C7) 5 Normal Extension (C6) 5 Normal PT-OP-Q Treatments Start: 09/29/19 12:45 Freq: Status: Active Protocol: Document 12/20/19 14:38 HH (Rec: 12/20/19 15:21 HH [id number]) Cardio Equipment Upper Body Ergometer (UBE) Duration (Minutes) 5 RPM 47 Seat Position 10 Height 3.5 Other 30sec fwd and bwd Therapeutic Exercises Supine Exercises supine scap punch Side right Equipment Used 2.2 lb ball Reps/Minutes 10 x 2 Comments cues on protraction Prone Exercises prone T Side right Reps/Minutes 8x 1 Comments PT assist for scap retraction Sidelying Exercises SL abduction Sidelying Exercise Name no discomfort Side right Resistance 2lb ball Equipment Used AROM Reps/Minutes 8x2 Comments contact scap retract/depress / GH jt inf glide moderate pain with feedback horizontal abduction Sidelying Exercise Name without Tspine rotation, with scap squeeze Side right Equipment Used 2lbs DB Reps/Minutes 6 x2 Comments contact scap retract/depress / GH jt inf glide minimal pain with feedback R GH ER/IR with 1 lbs Sidelying Exercise Name R>L Side right Equipment Used 2lbs Comments contact scap retract/depress / GH jt inf glide no pain with feedback Manual Therapy Treatment Joint Mobilizations PA mob Joint T1-T8 Grade II Body Position Prone Reps/Duration 5 mins Comments no discomfort noted. Manual Techniques rhythmic stabilization Type supine with flexion at 90 then SL with abd 90 Body Position Supine Reps/Duration 2 secs hold each direction Comments PT provides resistance. for FL/ EXT/ ABD/ADD PT-OP-T Assessment and Plan Start: 09/29/19 12:45 Freq: Status: Active Protocol: Document 12/20/19 14:38 HH (Rec: 12/20/19 15:21 [id number]) Physical Therapy Assessment Goals 4 Short Term Goal (STG) 11/14 cont in progress Pt has been compliant to her HEP with good understanding and correct mechanics 11/27 Pt has been compliant to her HEP but she has difficulty maintaining correct body mechanics with strengthening exercises. She needs frequent cues during session to facilitate proper muscle activation. Snf Goal (LTG) Pt will perform progressive HEP with I including postural, flexibility and strengthening exercises to increase right arm strength and decrease pain by 11/29/2019. LTG Duration 8 weeks Three Snf Goal (LTG) Pt will present with an improved QuickDASH score to reflect no more than 10% impairment to allow return to pain-free IADLs by 11/29/2019. LTG Duration 8 weeks Two Short Term Goal (STG) 11/14 Pt had a pain free day on thursday and overall reduced pain since last week. 11/27 pt overall has reduced pain for half of the week Snf Goal (LTG) Pt will report an overall 80% improvement in right shoulder pain by 11/29/2019 to allow improved sleep and quality of life. LTG Duration 8 weeks One Short Term Goal (STG) Pt has improved abd and ER strength by 1/2 MMT grade 11/14 11/27 goal met with abd and ER strength. Snf Goal (LTG) Pt will present with right shoulder flexion, abduction, ER and IR strength to at lesat 4/5 by 11/29/2019 to allow improved use of right arm for self-care and walking dog. LTG Duration 8 weeks Assessment Summary Assessment Pt shows improved activity tolerance with very minimal discomfort. Pt was able to appo with her ex with 2-3 lbs DB. Will cont focus on scap and RTC strengtehning Physical Therapy Plan Next Visit Focus/Plan Next Note Type Treatment Note Next Visit Plan Review HEP, assess response to last tx. Continue to emphasize scap stabilization: retract/depress and GH inferior glide. body mechanics Thoracic extension cont manual work to assist posterior glide of humeral head strengthening of RTC in Progress as tolerated scap row , prone horizontal abd,
--- NOTE | 2019-12-27 13:00 | PT.OTN ---
Current Diagnoses Unspecified rotator cuff tear or rupture of unspecified shoulder, not specified as traumatic (12/27/19) Physical Therapy Treatment Note PT-OP-A Visit Information Start: 09/29/19 12:45 Freq: Status: Active Protocol: Document 12/27/19 12:18 SP (Rec: 12/27/19 13:01 SP [id number]) Out-Patient Physical Therapy Visit Information Visit Information Visit Type Treatment Note Visit Start Time 12:18 Visit Stop Time 13:00 Total Visit Minutes 42 Visit Number 19 Number of COLORER MACHINE Visits 1 PT-OP-B Current Condition Start: 09/29/19 12:45 Freq: Status: Active Protocol: Document 09/29/19 16:46 MB (Rec: 09/29/19 17:42 MB [id number]) Current Condition History of Current Condition Onset Date 2018 Current Complaints Right rotator cuff pain History of Current Condition Pt reports insidious right rotator cuff tear in 2018. She states that she did not injure it. She had a MRI. The orthopedist states that it was an old tear. Pt is right handed. Pt has pain in bed and likes to sleep on her side. She does not use cervical support but is interested in learning about better sleeping position . She reports pain when she puts her arms on the wide arm rests of the recliner. She occ walks her dog on her right side. She got better with PT. Three weeks ago, she woke up and the right shoulder pain was back. Now, her right shoulder gets stuck and it pops. Pt reports 6/10 pain in anterior, lateral and posterior right shoulder. 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 INR is WNLs Prior Treatments and Tests PT and her right shoulder pain got better. She thinks that the movement helped. Treatment Goals Patient/Caregiver Goals Pt's goals for PT are to decrease pain and popping. PT-OP-C Subjective Start: 09/29/19 12:45 Freq: Status: Active Protocol: Document 12/27/19 12:18 SP (Rec: 12/27/19 13:01 SP [id number]) OP-PT Subjective Patient Comments Patient Comments Pt stated feels her R shld is much better since started therapy, compliant doing my exercisse, they are not always fun but doing them. I think I will always have some soreness in my shoulder. PT-OP-J Posture/Palpation/Skin Start: 09/29/19 12:45 Freq: Status: Active Protocol: Document 09/29/19 16:46 MB (Rec: 09/29/19 18:48 MB [id number]) Posture Evaluation Comments Posture Comments Standing: forward head, rounded shoulders, Dowager's hump, decreased lumbar lordosis, right shoulder lower and right scapula more protracted and elevation compared to the left (pt is right handed), increased thoracic kyphosis, anterior tilt pelvis and high left iliac crest compared to the right. PT-OP-K Range of Motion Start: 09/29/19 12:45 Freq: Status: Active Protocol: Document 09/29/19 16:46 MB (Rec: 09/29/19 18:48 MB [id number]) Cervical Spine Range of Motion Cervical Spine Active Testing Position Standing Flexion 41 Extension 20 Rotation Left 40 Rotation Right 49 Lateral Flexion Left 10 Lateral Flexion Right 10 Shoulder Goniometric Range of Motion Shoulder Left Shoulder ROM WFL Yes Testing Position Standing Right Passive Shoulder ROM WFL No Testing Position Supine External Rotation at 0 degrees Abduction 90 Internal Rotation 40 Right Active Shoulder ROM WFL Yes Testing Position Standing Internal Rotation Behind Back (text) Normal for dominant hand and reaches to mid scapular area Shoulder ROM Limitations Comments Pt reports right shoulder pain 5/10 with flexion, 6/10 with IR behind back PT-OP-M Strength Start: 09/29/19 12:45 Freq: Status: Active Protocol: Document 09/29/19 16:46 MB (Rec: 09/29/19 18:48 MB [id number]) Shoulder Strength Shoulder Manual Muscle Testing Left Flexion 5 Normal Abduction (C5) 5 Normal External Rotation 5 Normal Internal Rotation 5 Normal Right Comments Deferred d/t pain Elbow/Forearm Strength Elbow and Forearm Manual Muscle Testing Left Flexion (C6) 5 Normal Extension (C7) 5 Normal Pronation 5 Normal Supination 5 Normal Right Flexion (C6) 5 Normal Extension (C7) 5 Normal Pronation 4 Good Supination 4 Good Comments Pt reports 4/10 pain with right supination Wrist Strength Wrist Manual Muscle Testing Left Flexion (C7) 5 Normal Extension (C6) 5 Normal Right Flexion (C7) 5 Normal Extension (C6) 5 Normal PT-OP-Q Treatments Start: 09/29/19 12:45 Freq: Status: Active Protocol: Document 12/27/19 12:18 SP (Rec: 12/27/19 13:01 SP [id number]) Cardio Equipment Upper Body Ergometer (UBE) Duration (Minutes) 6 RPM 80 Seat Position 11 Height 3.5 Other 1 min f/b x3 sets each direction Therapeutic Exercises Prone Exercises prone T Side right Reps/Minutes 8x 1 Comments PT assist for scap retraction semi prone hor abd and extension Side right Reps/Minutes 8 x 2 Comments cues on scap retraction, depression Sidelying Exercises SL abduction Sidelying Exercise Name no discomfort with inferior press away through range Side right Resistance 2lb ball Reps/Minutes 8x2 Comments contact scap retract/depress / GH jt inf glide moderate pain with feedback horizontal abduction Sidelying Exercise Name without Tspine rotation, with scap squeeze Side right Equipment Used AROM x10 full range, 1 lbs DB [id number] deg x5 Comments contact scap retract/depress / GH jt inf glide sore more> pain with feedback R GH ER/IR with 1 lbs Sidelying Exercise Name R>L Side right Equipment Used 2lbs Comments contact scap retract/depress / GH jt inf glide no pain with feedback Sitting Exercises OH mamie Sitting Exercise Name full range for ABD, FLEX Side left Equipment Used OH mamie Reps/Minutes 10 x 2 each direction Comments slight discomfort for ABD with IR at GH Jt, cued slow pacing con/ecc Standing Exercises shd extension Standing Exercise Name hands clasped behind back Resistance AROM Equipment Used ok without dowel Reps/Minutes x10 (home 8x2 per day) Comments cued scap stab and back lift away from body, papo range PT-OP-T Assessment and Plan Start: 09/29/19 12:45 Freq: Status: Active Protocol: Document 12/27/19 12:18 SP (Rec: 12/27/19 13:01 SP [id number]) Physical Therapy Assessment Goals 4 Short Term Goal (STG) 11/14 cont in progress Pt has been compliant to her HEP with good understanding and correct mechanics 11/27 Pt has been compliant to her HEP but she has difficulty maintaining correct body mechanics with strengthening exercises. She needs frequent cues during session to facilitate proper muscle activation. Police Detective Goal (LTG) Pt will perform progressive HEP with I including postural, flexibility and strengthening exercises to increase right arm strength and decrease pain by 11/29/2019. LTG Duration 8 weeks Three Police Detective Goal (LTG) Pt will present with an improved QuickDASH score to reflect no more than 10% impairment to allow return to pain-free IADLs by 11/29/2019. LTG Duration 8 weeks Two Short Term Goal (STG) 11/14 Pt had a pain free day on thursday and overall reduced pain since last week. 11/27 pt overall has reduced pain for half of the week Police Detective Goal (LTG) Pt will report an overall 80% improvement in right shoulder pain by 11/29/2019 to allow improved sleep and quality of life. LTG Duration 8 weeks One Short Term Goal (STG) Pt has improved abd and ER strength by 1/2 MMT grade 11/14 11/27 goal met with abd and ER strength. Police Detective Goal (LTG) Pt will present with right shoulder flexion, abduction, ER and IR strength to at lesat 4/5 by 11/29/2019 to allow improved use of right arm for self-care and walking dog. LTG Duration 8 weeks Assessment Summary Assessment Pt showed improvements in self corrections scap retraction and depression stabilization, challenging in sidelying but with cuing improves with less discomfort. Physical Therapy Plan Frequency and Duration Frequency of Treatment 2x/wk November, 1/wk Dec Duration of Treatment 8 weeks Plan of Care Start Date 11/28/19 Plan of Care End Date 01/30/20 Therapeutic Interventions Therapeutic Interventions Aquatic Therapy,Canalithic Repositioning,Home Exercise Program,Manual Therapy, Neuromuscular Re-education, Patient/Caregiver Education, Self-Care/Home Management,Soft Tissue Mobilization,Taping, Therapeutic Activities, Therapeutic Exercises Modalities Cold Pack/Ice Massage,Electric Stimulation,Hot Packs, Ultrasound Other Therapeutic Interventions Laser Discharge Physical Therapy Discharge Comments oals met Next Visit Focus/Plan Next Note Type Treatment Note Next Visit Plan Review HEP, assess response to last tx. Continue to emphasize scap stabilization: retract/depress and GH inferior glide. body mechanics Thoracic extension cont manual work to assist posterior glide of humeral head strengthening of RTC in Progress as tolerated scap row , prone horizontal abd,
--- NOTE | 2020-01-02 16:29 | PT.OTN ---
Current Diagnoses Unspecified rotator cuff tear or rupture of unspecified shoulder, not specified as traumatic (01/02/20) Physical Therapy Treatment Note PT-OP-A Visit Information Start: 09/29/19 12:45 Freq: Status: Active Protocol: Document 01/02/20 13:01 HH (Rec: 01/02/20 16:25 HH [id number]) Out-Patient Physical Therapy Visit Information Visit Information Visit Type Progress Note Visit Start Time 13:02 Visit Stop Time 13:45 Total Visit Minutes 43 Visit Number 20 Number of HOME HOSPICE RN Visits 0 PT-OP-B Current Condition Start: 09/29/19 12:45 Freq: Status: Active Protocol: Document 09/29/19 16:46 MB (Rec: 09/29/19 17:42 MB [id number]) Current Condition History of Current Condition Onset Date 2018 Current Complaints Right rotator cuff pain History of Current Condition Pt reports insidious right rotator cuff tear in 2018. She states that she did not injure it. She had a MRI. The orthopedist states that it was an old tear. Pt is right handed. Pt has pain in bed and likes to sleep on her side. She does not use cervical support but is interested in learning about better sleeping position . She reports pain when she puts her arms on the wide arm rests of the recliner. She occ walks her dog on her right side. She got better with PT. Three weeks ago, she woke up and the right shoulder pain was back. Now, her right shoulder gets stuck and it pops. Pt reports 6/10 pain in anterior, lateral and posterior right shoulder. 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 INR is WNLs Prior Treatments and Tests PT and her right shoulder pain got better. She thinks that the movement helped. Treatment Goals Patient/Caregiver Goals Pt's goals for PT are to decrease pain and popping. PT-OP-C Subjective Start: 09/29/19 12:45 Freq: Status: Active Protocol: Document 01/02/20 13:01 HH (Rec: 01/02/20 16:25 HH [id number]) OP-PT Subjective Patient Comments Patient Comments I didnt have a good week from last time and it has been snapping again. Today is better. PT-OP-J Posture/Palpation/Skin Start: 09/29/19 12:45 Freq: Status: Active Protocol: Document 09/29/19 16:46 MB (Rec: 09/29/19 18:48 MB [id number]) Posture Evaluation Comments Posture Comments Standing: forward head, rounded shoulders, Dowager's hump, decreased lumbar lordosis, right shoulder lower and right scapula more protracted and elevation compared to the left (pt is right handed), increased thoracic kyphosis, anterior tilt pelvis and high left iliac crest compared to the right. PT-OP-K Range of Motion Start: 09/29/19 12:45 Freq: Status: Active Protocol: Document 09/29/19 16:46 MB (Rec: 09/29/19 18:48 MB [id number]) Cervical Spine Range of Motion Cervical Spine Active Testing Position Standing Flexion 41 Extension 20 Rotation Left 40 Rotation Right 49 Lateral Flexion Left 10 Lateral Flexion Right 10 Shoulder Goniometric Range of Motion Shoulder Left Shoulder ROM WFL Yes Testing Position Standing Right Passive Shoulder ROM WFL No Testing Position Supine External Rotation at 0 degrees Abduction 90 Internal Rotation 40 Right Active Shoulder ROM WFL Yes Testing Position Standing Internal Rotation Behind Back (text) Normal for dominant hand and reaches to mid scapular area Shoulder ROM Limitations Comments Pt reports right shoulder pain 5/10 with flexion, 6/10 with IR behind back PT-OP-M Strength Start: 09/29/19 12:45 Freq: Status: Active Protocol: Document 09/29/19 16:46 MB (Rec: 09/29/19 18:48 MB [id number]) Shoulder Strength Shoulder Manual Muscle Testing Left Flexion 5 Normal Abduction (C5) 5 Normal External Rotation 5 Normal Internal Rotation 5 Normal Right Comments Deferred d/t pain Elbow/Forearm Strength Elbow and Forearm Manual Muscle Testing Left Flexion (C6) 5 Normal Extension (C7) 5 Normal Pronation 5 Normal Supination 5 Normal Right Flexion (C6) 5 Normal Extension (C7) 5 Normal Pronation 4 Good Supination 4 Good Comments Pt reports 4/10 pain with right supination Wrist Strength Wrist Manual Muscle Testing Left Flexion (C7) 5 Normal Extension (C6) 5 Normal Right Flexion (C7) 5 Normal Extension (C6) 5 Normal PT-OP-Q Treatments Start: 09/29/19 12:45 Freq: Status: Active Protocol: Document 01/02/20 13:01 HH (Rec: 01/02/20 16:25 HH [id number]) Cardio Equipment Upper Body Ergometer (UBE) Duration (Minutes) 6 RPM 80 Seat Position 11 Height 3.5 Other 1 min f/b x3 sets each direction Therapeutic Exercises Sidelying Exercises SL abduction Sidelying Exercise Name no discomfort with inferior press away through range Side right Resistance 2lb ball Reps/Minutes 8x2 Comments contact scap retract/depress / GH jt inf glide moderate pain with feedback horizontal abduction Sidelying Exercise Name without Tspine rotation, with scap squeeze Side right Equipment Used 2lbs DB Comments contact scap retract/depress / GH jt inf glide sore more> pain with feedback Sitting Exercises OH mamie Sitting Exercise Name full range for ABD, FLEX Side left Equipment Used OH mamie Reps/Minutes 10 x 2 each direction Comments slight discomfort for ABD with IR at GH Jt, cued slow pacing con/ecc Standing Exercises shoulder press Side right Equipment Used 2lbs Reps/Minutes 8 x2 Comments no discomfort noted. Shoulder ER and IR isometric in standing, core tight Side bilateral Equipment Used PVC pipe Reps/Minutes 2 mins Comments with flossing for IR R UE AAROM shoulder elevation with cane Side bilateral Reps/Minutes 2 mins Comments no discomfort. PT-OP-T Assessment and Plan Start: 09/29/19 12:45 Freq: Status: Active Protocol: Document 01/02/20 13:01 (Rec: 01/02/20 16:25 [id number]) Physical Therapy Assessment Goals 4 Short Term Goal (STG) 11/14 cont in progress Pt has been compliant to her HEP with good understanding and correct mechanics 11/27 Pt has been compliant to her HEP but she has difficulty maintaining correct body mechanics with strengthening exercises. She needs frequent cues during session to facilitate proper muscle activation. Engineering Professionals Goal (LTG) 01/01 goal met Pt shows identical strength for both shoulders without discomfort. Pt will perform progressive HEP with I including postural, flexibility and strengthening exercises to increase right arm strength and decrease pain by 11/29/2019. LTG Duration 8 weeks Three Engineering Professionals Goal (LTG) Pt will present with an improved QuickDASH score to reflect no more than 10% impairment to allow return to pain-free IADLs by 11/29/2019. LTG Duration 8 weeks Two Short Term Goal (STG) 11/14 Pt had a pain free day on thursday and overall reduced pain since last week. 11/27 pt overall has reduced pain for half of the week Shelter Goal (LTG) 01/01 goal met Pt has pain at most 3/10, who is able to reach behind her back and elevate her R arm with minimal discomfort and full range. Pt will report an overall 80% improvement in right shoulder pain by 11/29/2019 to allow improved sleep and quality of life. LTG Duration 8 weeks One Short Term Goal (STG) Pt has improved abd and ER strength by 1/2 MMT grade 11/14 11/27 goal met with abd and ER strength. Shelter Goal (LTG) 01/01 goal met all position for R shoulder = 4+/5 and above Pt will present with right shoulder flexion, abduction, ER and IR strength to at lesat 4/5 by 11/29/2019 to allow improved use of right arm for self-care and walking dog. LTG Duration 8 weeks Assessment Summary Assessment Pt had a flare up from last visit who stated over did her exercises. Pt took 2 days off during weekend and able to recover. Pt stated she can reach behind her back, elevate without much discomfort now, along with equipvalent shoulder strength compared to L side. Pain at most 3/10. Pt thinks she can be d/c next visit. Will use her phone to film HEP. Physical Therapy Plan Next Visit Focus/Plan Next Note Type Treatment Note Next Visit Plan Review HEP, assess response to last tx. Continue to emphasize scap stabilization: retract/depress and GH inferior glide. body mechanics Thoracic extension cont manual work to assist posterior glide of humeral head strengthening of RTC in Progress as tolerated scap row , prone horizontal abd,
--- NOTE | 2020-01-10 14:30 | PT.OTN ---
Current Diagnoses Unspecified rotator cuff tear or rupture of unspecified shoulder, not specified as traumatic (01/10/20) Physical Therapy Treatment Note PT-OP-A Visit Information Start: 09/29/19 12:45 Freq: Status: Active Protocol: Document 01/10/20 13:49 HH (Rec: 01/10/20 14:30 HH [id number]) Out-Patient Physical Therapy Visit Information Visit Information Visit Type Discharge Summary Visit Start Time 13:45 Visit Stop Time 14:20 Total Visit Minutes 40 Visit Number 21 Number of ASSISTANT ATHLETIC TRAINER Visits 0 PT-OP-B Current Condition Start: 09/29/19 12:45 Freq: Status: Active Protocol: Document 09/29/19 16:46 MB (Rec: 09/29/19 17:42 MB [id number]) Current Condition History of Current Condition Onset Date 2018 Current Complaints Right rotator cuff pain History of Current Condition Pt reports insidious right rotator cuff tear in 2018. She states that she did not injure it. She had a MRI. The orthopedist states that it was an old tear. Pt is right handed. Pt has pain in bed and likes to sleep on her side. She does not use cervical support but is interested in learning about better sleeping position . She reports pain when she puts her arms on the wide arm rests of the recliner. She occ walks her dog on her right side. She got better with PT. Three weeks ago, she woke up and the right shoulder pain was back. Now, her right shoulder gets stuck and it pops. Pt reports 6/10 pain in anterior, lateral and posterior right shoulder. 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 INR is WNLs Prior Treatments and Tests PT and her right shoulder pain got better. She thinks that the movement helped. Treatment Goals Patient/Caregiver Goals Pt's goals for PT are to decrease pain and popping. PT-OP-C Subjective Start: 09/29/19 12:45 Freq: Status: Active Protocol: Document 01/10/20 13:49 HH (Rec: 01/10/20 14:30 HH [id number]) OP-PT Subjective Patient Comments Patient Comments Im doing pretty good so far. I got my mamie and was able to do it every morning. I am ready to be d/c Patient Reported Progress Improving PT-OP-J Posture/Palpation/Skin Start: 09/29/19 12:45 Freq: Status: Active Protocol: Document 09/29/19 16:46 MB (Rec: 09/29/19 18:48 MB [id number]) Posture Evaluation Comments Posture Comments Standing: forward head, rounded shoulders, Dowager's hump, decreased lumbar lordosis, right shoulder lower and right scapula more protracted and elevation compared to the left (pt is right handed), increased thoracic kyphosis, anterior tilt pelvis and high left iliac crest compared to the right. PT-OP-K Range of Motion Start: 09/29/19 12:45 Freq: Status: Active Protocol: Document 09/29/19 16:46 MB (Rec: 09/29/19 18:48 MB [id number]) Cervical Spine Range of Motion Cervical Spine Active Testing Position Standing Flexion 41 Extension 20 Rotation Left 40 Rotation Right 49 Lateral Flexion Left 10 Lateral Flexion Right 10 Shoulder Goniometric Range of Motion Shoulder Left Shoulder ROM WFL Yes Testing Position Standing Right Passive Shoulder ROM WFL No Testing Position Supine External Rotation at 0 degrees Abduction 90 Internal Rotation 40 Right Active Shoulder ROM WFL Yes Testing Position Standing Internal Rotation Behind Back (text) Normal for dominant hand and reaches to mid scapular area Shoulder ROM Limitations Comments Pt reports right shoulder pain 5/10 with flexion, 6/10 with IR behind back PT-OP-M Strength Start: 09/29/19 12:45 Freq: Status: Active Protocol: Document 09/29/19 16:46 MB (Rec: 09/29/19 18:48 MB [id number]) Shoulder Strength Shoulder Manual Muscle Testing Left Flexion 5 Normal Abduction (C5) 5 Normal External Rotation 5 Normal Internal Rotation 5 Normal Right Comments Deferred d/t pain Elbow/Forearm Strength Elbow and Forearm Manual Muscle Testing Left Flexion (C6) 5 Normal Extension (C7) 5 Normal Pronation 5 Normal Supination 5 Normal Right Flexion (C6) 5 Normal Extension (C7) 5 Normal Pronation 4 Good Supination 4 Good Comments Pt reports 4/10 pain with right supination Wrist Strength Wrist Manual Muscle Testing Left Flexion (C7) 5 Normal Extension (C6) 5 Normal Right Flexion (C7) 5 Normal Extension (C6) 5 Normal PT-OP-Q Treatments Start: 09/29/19 12:45 Freq: Status: Active Protocol: Document 01/10/20 13:49 HH (Rec: 01/10/20 14:30 HH [id number]) Therapeutic Exercises Supine Exercises Shoulder ER hook lying Supine Exercise Name PVC Side bilateral Comments no dsicomfort supine elevation with cane Supine Exercise Name PVC Side bilateral Comments no discomfort Sidelying Exercises SL abduction Sidelying Exercise Name no discomfort with inferior press away through range Side right Resistance 2lb ball Reps/Minutes 8x2 Comments contact scap retract/depress / GH jt inf glide moderate pain with feedback R GH ER/IR with 1 lbs Sidelying Exercise Name R>L Side right Equipment Used 2lbs DB Comments full ROM ER, only pain at end range Sitting Exercises OH mamie Sitting Exercise Name full range for ABD, FLEX, ext with IR Side bilateral Equipment Used OH mamie Reps/Minutes 2 mins each position Comments slight discomfort for ABD with IR at GH Jt, cued slow pacing con/ecc seated pull apart Side bilateral Equipment Used yellow band Reps/Minutes 8 x 2 Comments review of HEP, no discomfort noted PT-OP-T Assessment and Plan Start: 09/29/19 12:45 Freq: Status: Active Protocol: Document 01/10/20 13:49 (Rec: 01/10/20 14:30 [id number]) Physical Therapy Assessment Goals 4 Short Term Goal (STG) 11/14 cont in progress Pt has been compliant to her HEP with good understanding and correct mechanics 11/27 Pt has been compliant to her HEP but she has difficulty maintaining correct body mechanics with strengthening exercises. She needs frequent cues during session to facilitate proper muscle activation. Correction Goal (LTG) 01/01 goal met Pt shows identical strength for both shoulders without discomfort. Pt will perform progressive HEP with I including postural, flexibility and strengthening exercises to increase right arm strength and decrease pain by 11/29/2019. LTG Duration 8 weeks Three Correction Goal (LTG) Pt scores 22.7 on Quickdash . IE at 50 LTG Duration 8 weeks Two Short Term Goal (STG) 11/14 Pt had a pain free day on thursday and overall reduced pain since last week. 11/27 pt overall has reduced pain for half of the week Correction Goal (LTG) 01/01 goal met Pt has pain at most 3/10, who is able to reach behind her back and elevate her R arm with minimal discomfort and full range. Pt will report an overall 80% improvement in right shoulder pain by 11/29/2019 to allow improved sleep and quality of life. LTG Duration 8 weeks One Short Term Goal (STG) Pt has improved abd and ER strength by 1/2 MMT grade 11/14 11/27 goal met with abd and ER strength. Correction Goal (LTG) 01/01 goal met all position for R shoulder = 4+/5 and above Pt will present with right shoulder flexion, abduction, ER and IR strength to at lesat 4/5 by 11/29/2019 to allow improved use of right arm for self-care and walking dog. LTG Duration 8 weeks Progress Towards Goals Progress Towards Goals Goals Met Assessment Summary Assessment Pt scores 22 for quickdash from 50 during IE. Pt only has pain with end range abd and ER but able to tolerate most daily activities. Spent time reviewing HEP with her today and pt requested to be d/c as she met her progress. Physical Therapy Plan Discharge Physical Therapy Discharge Reasons Goals Met Discharge Comments and pt request see A& P
== END 2020-01-12 09:29 | disposition home or self-care (01) ==
LOC: PHYS 13:45
PROVIDERS: PCP Student in an Organized Health Care Education/Training Program; Referring Provider Student in an Organized Health Care Education/Training Program; Visit Provider Student in an Organized Health Care Education/Training Program
DX: M75.100 Unspecified rotator cuff tear or rupture of unspecified shoulder, not specified as traumatic (principal)
CPT/HCPCS: 97110; 97140; 97161; 97535

== ENCOUNTER → 2020-03-27 10:44 | Outpatient (CLI) | payer MEDICARE, OTHER, SELFPAY ==
[2020-03-27 12:18] LABS: BUN Creatinine Ratio 26.4 (6-22); Blood Urea Nitrogen 23 mg/dL (7-17); Calcium 9.5 mg/dL (8.4-10.2); Carbon Dioxide 31 mmol/L (22-32); Chloride 104 mmol/L (98-107); Estimated Glomerular Filt Rate > 60.0 mL/min (>60); Glucose 223 mg/dL (80-110); HEMOLYSIS < 15 (0-50); Potassium 3.3 mmol/L (3.4-5.1); Sodium 138 mmol/L (137-145)
[2020-03-27 12:52] LABS: Vitamin D 25 Hydroxy (D3) 38.6 ng/mL (30.0-100.0)
== END ==
PROVIDERS: PCP Student in an Organized Health Care Education/Training Program; Referring Provider Student in an Organized Health Care Education/Training Program; Visit Provider Student in an Organized Health Care Education/Training Program
DX: I10 Essential (primary) hypertension (principal); E55.9 Vitamin D deficiency, unspecified
CPT/HCPCS: 36415; 80048; 82306

== ENCOUNTER → 2020-04-13 07:50 | Outpatient (CLI) | payer MEDICARE, OTHER, SELFPAY ==
[2020-04-13 09:21] LABS: Hemoglobin A1C% w Est Avg Glu 7.5 % (4.0-6.0)
== END ==
PROVIDERS: PCP Student in an Organized Health Care Education/Training Program; Referring Provider Student in an Organized Health Care Education/Training Program; Visit Provider Student in an Organized Health Care Education/Training Program
DX: R73.9 Hyperglycemia, unspecified (principal)
CPT/HCPCS: 36415; 83036

== ENCOUNTER → 2020-04-18 12:43 | Outpatient (CLI) | payer MEDICARE, OTHER, SELFPAY | PROVIDERS: PCP Student in an Organized Health Care Education/Training Program; Referring Provider Student in an Organized Health Care Education/Training Program; Visit Provider Student in an Organized Health Care Education/Training Program | DX: Z13.820 Encounter for screening for osteoporosis (principal); M85.851 Other specified disorders of bone density and structure, right thigh; Z78.0 Asymptomatic menopausal state; Z91.89 Other specified personal risk factors, not elsewhere classified | CPT/HCPCS: 77080 ==

== ENCOUNTER → 2020-06-13 10:57 | Outpatient (CLI) | payer MEDICARE, OTHER, SELFPAY ==
--- NOTE | 2020-06-13 12:43 | DIET.PN ---
Diabetes Intake: Initial Assessment Assess: Ms. Schmitt is an 80 yof referred for Type 2 Diabetes seen as part of DSME. She is recently diagnosed and was placed on metformin. She has been on warfarin for some time, but has become increasingly concerned with fluctuations in INR since diabetes diagnosis and changes in medication management. She reports an overall healthy lifestyle including close attention to dietary behaviors and regular exercise. She also reports 10 lb weight loss in the last month due to recent dietary restrictions. Labs: Per pt report: A1c: 7.5 Meds: metformin 500mg qd; simvastatin; warfarin (possible change to xarelto) Diet: per 24 hr recall: B: 2 slices wheat toast; smoothie w/ w milk, 1 tsp slovenian yogurt, triple calix L/D: 2 pieces filet of rocky w/ EVOO; spinach suflet Sn: Wt: 144lb Ht: 61.25in BMI: 27 DX: Altered nutrition related laboratory values related to impaired glucose metabolism, lack of previous exposure to nutrition information as evidenced by pt report, diagnosis of diabetes, previous diet high in refined carbohydrates. Intervention: 1. Completed intake assessment. Discussed barriers to care. 2. Discussed pathophysiology of diabetes. Reviewed A1c and its correlation to blood glucose numbers. Discussed recommended BG ranges. 3. Discussed importance of self-monitoring, how often, and when to check. 4. Reviewed hyper/hypoglycemia and treatment. 5. Reviewed safe disposal of equipment (strip/lancets/insulin needles). 6. Created SMART goals for pt self-care and success. 7. Discussed program curriculum outline and class needs based on individual goals. SMART Goals: 1. Pt would like to lower A1c to <7.0 through carb counting for glucose control while maintaining an appropriate vitamin K balance while on warfarin. Monitor/Evaluate: Pt will attend full DSME program. Basic Nutrition class scheduled for Jun 26 @ .
== END ==
PROVIDERS: PCP Family Medicine; Referring Provider Family Medicine; Visit Provider Family Medicine
DX: E11.9 Type 2 diabetes mellitus without complications (principal); Z79.84 Long term (current) use of oral hypoglycemic drugs
CPT/HCPCS: G0108

== ENCOUNTER → 2020-06-26 10:01 | Outpatient (CLI) | payer MEDICARE, OTHER, SELFPAY ==
--- NOTE | 2020-06-26 11:32 | DIET.PN ---
Diabetes: Healthy Eating 1 Intervention: ? Discussed pathophysiology of diabetes and impact of nutrition/diet on blood sugar control.? Discussed fed versus non-fed state.?? ? Reviewed importance of Balance, Variety, and Moderation. ? Discussed the effect of carbohydrates/protein/fat on blood sugar control.? ? Stressed importance of consistent carbohydrate intake at each meal and provided instructions for recommended servings/portions of carbohydrates/protein per meal. Provided educational material. ? Reviewed carbohydrate counting and measuring carbohydrate content via serving sizes and reading nutrition labels.? Provided handouts.?? ? Discussed the difference between simple versus complex carbohydrates and the effect of fiber on blood sugar control.? Discussed various methods to increase fiber content in diet. ? Discussed the plate method for creating more carbohydrate conscious balanced meals. ? Stressed importance of meal timing and not going >4-5 hours between meals. Encouraged adding protein to evening snack to support glucose control overnight. ? Discussed importance of making dietary habits part of lifestyle change.
== END ==
PROVIDERS: PCP Family Medicine; Referring Provider Family Medicine; Visit Provider Family Medicine
DX: E11.9 Type 2 diabetes mellitus without complications (principal); Z71.3 Dietary counseling and surveillance
CPT/HCPCS: G0109

== ENCOUNTER → 2020-07-02 07:53 | Outpatient (CLI) | payer MEDICARE, OTHER, SELFPAY ==
[2020-07-02 10:41] LABS: Creatinine Urine Random 95.8 mg/dL
[2020-07-02 10:44] LABS: Microalbumi Creatinin Ratio Ur 14.6 ug/mg CR (<30); Microalbumin Urine Random 1.4 mg/dL (0-1.6)
== END ==
PROVIDERS: PCP Family Medicine; Referring Provider Family Medicine; Visit Provider Family Medicine
DX: E11.9 Type 2 diabetes mellitus without complications (principal)
CPT/HCPCS: 36415; 82043; 82570; 83036

== ENCOUNTER → 2020-07-03 10:03 | Outpatient (CLI) | payer MEDICARE, OTHER, SELFPAY ==
--- NOTE | 2020-07-03 12:08 | DIET.PN ---
Diabetes: Healthy Eating 2 Intervention: Fats effects on glucose, weight, heart disease, cholesterol Sat Vs Unsat Protein- animal and plant based options Low, med, high fat meats Sugar substitutes Sodium Health claims Grocery shopping guidelines Eating away from home Alcohol Sick day guidelines Ketone Testing
== END ==
PROVIDERS: PCP Family Medicine; Referring Provider Family Medicine; Visit Provider Family Medicine
DX: E11.9 Type 2 diabetes mellitus without complications (principal); Z71.3 Dietary counseling and surveillance
CPT/HCPCS: G0109

== ENCOUNTER → 2020-07-05 13:28 | Outpatient (CLI) | payer MEDICARE, OTHER, SELFPAY ==
--- NOTE | 2020-07-05 14:32 | DIET.PN ---
DIABETES Nutrition Initial Assessment:? ASSESS:?? Ms. Schmitt is a 80 yof?referred for type 2 diabetes seen as part of DSME program. She continues to follow strict dietary habits and exercise. Since our last appt she discontinued warfarin and was placed on xarelto. She has not been able to text due to issues with her glucometer and supplies. Recently had new labs. ??? LABS: Per pt report:? A1c: 6.0 (from 7.5) ? MEDS:?? met 500mg qd; xarelto ? DIET: Per 24-hour recall:? B: toast w/ cantaloupe; egg omelet w/ toast L: protein, salad D: does not often eat Eating Out: rarely Changes in Appetite: eating less Nutrition Supplements: na ? Weight: 148lb Height: 61.25in BMI: ?27.7 ? Exercise:? NUTRITION DX 1. Altered Nutrition related labs related to impaired glucose metabolism, lack of previous exposure to accurate nutrition information as evidenced by pt report, dx of diabetes, previous diet high in refined carbohydrates.? INTERVENTION(s): 1. Reviewed pathophysiology of diabetes and impact of nutrition/diet on blood sugar control.? Discussed fed versus non-fed state.?? 2. Discussed the effect of carbohydrates/protein/fat on blood sugar control.? Stressed importance of consistent carbohydrate intake at each meal and provided instructions for recommended servings/portions of carbohydrates/protein per meal. Provided pt with educational material. 3. Stressed importance of meal timing and not going >4-5 hours between meals. Encouraged adding protein to evening snack to support glucose control overnight. Patient agreeable. 4. Discussed healthy weight loss goals of 1-2lbs per week through diet and exercise.? Pt agreeable to walking at least 30 minutes daily. 5. Recommend monitoring fasting and alternating 2 hr PP mealtime glucose. MONITOR/EVALUATE: Anticipate good compliance.? Nutrition follow-up scheduled for 2 month.
== END ==
PROVIDERS: PCP Family Medicine; Referring Provider Family Medicine; Visit Provider Family Medicine
DX: E11.9 Type 2 diabetes mellitus without complications (principal); Z79.84 Long term (current) use of oral hypoglycemic drugs; Z71.3 Dietary counseling and surveillance
CPT/HCPCS: G0109

== ENCOUNTER → 2020-07-10 09:57 | Outpatient (CLI) | payer MEDICARE, OTHER, SELFPAY ==
--- NOTE | 2020-07-10 15:43 | DIET.PN ---
Diabetes Physiology and Medications: Intervention 1. Diabetes physiology 2. Detecting and treatment of acute and chronic complications 3. Diagnosis of and difference in types of diabetes 4. Self-monitoring and pattern management a. Demonstrate glucometer and control testing b. Explain BG results and action to take when out of range. 5. Foot , eye, dental care 6. Medications a. Oral medication classification b. Injectable c. Insulin i. Injection protocol ii. Other delivery methods
== END ==
PROVIDERS: PCP Family Medicine; Referring Provider Family Medicine; Visit Provider Family Medicine
DX: E11.9 Type 2 diabetes mellitus without complications (principal); Z71.3 Dietary counseling and surveillance
CPT/HCPCS: G0109

== ENCOUNTER → 2020-08-23 13:28 | Outpatient (CLI) | payer MEDICARE, OTHER, SELFPAY ==
--- NOTE | 2020-08-23 14:07 | DIET.PN ---
Diabetes Follow Up Assess: Ms. Schmitt is 3 mo follow up visit. She is very pleased with her most recent labs. She continues to follow more healthy dietary habits. She has been reading food labels and using food apps for looking up portion sizes/carb amounts. She has been walking her dog for exercise. Labs: A1c: 6.0 (from 7.5) Meds: metf 500mg qd; xarelto Dietary changes: working on eating more regularly; limiting sweets Ht: 61.25in Wt: 146lb BMI: 27.4 Nutrition DX: Altered nutrition related laboratory values related to impaired glucose metabolism, lack of previous exposure to nutrition information as evidenced by pt report, diagnosis of diabetes, previous diet high in refined carbohydrates. Intervention: 1. Completed follow up assessment. Reviewed barriers to care. 2. Reviewed new labs and importance of continued BG monitoring. 3. Reviewed SMART goals and made modifications where appropriate including wt management, activity, and A1c goals. 4. Discussed plan for ongoing support. Provided information for continued support and success. SMART goals: 1. Pt would like to maintain a1c 6.0 through carb counting for glucose control. Monitor/Evaluate: Pt will follow up in 3 mo to discuss new labs and barriers to care.
== END ==
PROVIDERS: PCP Family Medicine; Referring Provider Family Medicine; Visit Provider Family Medicine
DX: E11.9 Type 2 diabetes mellitus without complications (principal); Z79.84 Long term (current) use of oral hypoglycemic drugs; Z71.3 Dietary counseling and surveillance
CPT/HCPCS: G0109

== ENCOUNTER → 2020-12-06 07:52 | Outpatient (CLI) | payer MEDICARE, OTHER, SELFPAY ==
[2020-12-06 09:17] LABS: Alanine Aminotransferase 16 IU/L (<35); Albumin 3.9 g/dL (3.5-5.0); Albumin Globulin Ratio 1.5 (1.0-2.8); Alkaline Phosphatase 38 U/L (38-126); Aspartate Aminotransferase 26 IU/L (14-36); BUN Creatinine Ratio 21.8 (6-22); Bilirubin Total 0.5 mg/dL (0.2-1.3); Blood Urea Nitrogen 19 mg/dL (7-17); Calcium 9.8 mg/dL (8.4-10.2); Carbon Dioxide 27 mmol/L (22-32); Chloride 102 mmol/L (98-107); Cholesterol 157 mg/dL (140-199); Estimated Glomerular Filt Rate > 60.0 mL/min (>60); Globulin 2.6 g/dL (1.7-4.1); Glucose 116 mg/dL (80-110); HDL Cholesterol 59 mg/dL (40-60); HEMOLYSIS < 15 (0-50); LDL Cholesterol Calculated 74 mg/dL (<100); Potassium 4.5 mmol/L (3.4-5.1); Sodium 135 mmol/L (137-145); Total Protein 6.5 g/dL (6.3-8.2); Triglycerides 122 mg/dL (35-150)
[2020-12-06 10:39] LABS: Hemoglobin A1C% w Est Avg Glu 6.1 % (4.0-6.0)
== END ==
PROVIDERS: PCP Family Medicine; Referring Provider Family Medicine; Visit Provider Family Medicine
DX: E11.9 Type 2 diabetes mellitus without complications (principal); E78.00 Pure hypercholesterolemia, unspecified; I10 Essential (primary) hypertension
CPT/HCPCS: 36415; 80053; 80061; 83036

== ENCOUNTER → 2021-06-24 12:44 | Outpatient (CLI) | payer MEDICARE, OTHER, SELFPAY ==
[2021-06-24 13:59] LABS: INR 2.2 (0.9-1.3); Prothrombin Time 25.3 SECONDS (10.1-12.7)
== END ==
PROVIDERS: PCP Family Medicine; Referring Provider Family Medicine; Visit Provider Family Medicine
DX: Z79.01 Long term (current) use of anticoagulants (principal)
CPT/HCPCS: 36415; 85610

== ENCOUNTER → 2022-02-22 11:14 | Outpatient (CLI) | payer MEDICARE, OTHER, SELFPAY ==
--- NOTE | 2022-02-22 11:16 | DI.RAD.S_ITS ---
PROCEDURE: XR LUMBAR SPINE 2-3V INDICATIONS: chronic back with radicular symptoms TECHNIQUE: 3 views of the lumbar spine were acquired. COMPARISON: [facility], MR, MR LUMBAR SPINE WO CON, 02/22/2022, 11:36. FINDINGS: Bones: 5 cnl-gyt-[id number] vertebrae are present. . No vertebral body compression fractures. No suspicious bony lesions. Htpb-fb-ngzeqdyz dextroconvex scoliosis is seen. Minimal retrolisthesis can be seen at L1-L2, L2-L3, and L4-L5. There is at least moderate disc space narrowing seen at each lumbar level, yet with moderate to severe disc space narrowing seen at L1-L2, L4-L5, and L5-S1. A degree of vertebral body fusion is seen at L5-S1. Lower lumbar spine facet arthropathy is seen. Soft tissues: Overlying bowel gas pattern is normal. No suspicious soft tissue calcifications. Atherosclerotic calcification is noted. IMPRESSION: Lumbar spine degenerative changes are seen, which are worst inferiorly. Mild dextroconvex scoliotic curvature is seen. Dictated by: Bryce Barrera M.D. on 02/22/2022 at 11:29 Approved by: Bryce Barrera M.D. on 02/22/2022 at 11:30
--- NOTE | 2022-02-22 11:26 | DI.MRI.S_ITS ---
PROCEDURE: MR LUMBAR SPINE WO CON INDICATIONS: chronic back with radicular symptoms TECHNIQUE: Noncontrast sagittal T1 spin echo and T2 fast echo, sagittal STIR, and T2 fast spin echo through the lumbar spine. In cases with scoliosis, additional coronal T2 fast spin echo may be performed. COMPARISON: [facility], CR, XR LUMBAR SPINE 2-3V, 02/22/2022, 11:42. FINDINGS: Image quality: Slightly motion degraded on some sequences. Alignment: Dextroconvex lumbar spinal curvature. There is trace right lateral listhesis of L3 on L4. Trace retrolisthesis of L2 on L3, anterolisthesis of L3 on L4, and retrolisthesis of L4 on L5. Marrow: Scattered Modic changes. Multilevel disc desiccation and height loss. Cord: Terminates at L1-L2, which is normal. There is some clumping of the cauda equina nerve roots at multiple levels, particularly L3-L4. Soft tissues: Hypointense lesion in the left kidney might be a hemorrhagic cyst, not well characterized on this study. Specific levels: T12-L1: Posterior disc protrusion and along with an annular fissure and osteophytes. Facet arthropathy. Mild central narrowing involving the left subarticular recess. Moderate right and left neural foraminal narrowing. L1-L2: Mild central narrowing. Diffuse disc bulge and a small central protrusion. Dqln-av-unleqnhm facet arthropathy. Mild right and moderate left neural foraminal narrowing. L2-L3: Diffuse disc bulge and a superimposed central protrusion. Moderate central narrowing involving both subarticular recesses. There is facet arthropathy. Mild bilateral neural foraminal narrowing. L3-L4: Ligamentum flavum hypertrophy, central protrusion, and a diffuse disc bulge combined with moderate to severe facet arthropathy. Severe central narrowing affecting the left greater than right subarticular recesses. Mild left neural foraminal narrowing. The disc is slightly uncovered at this level. L4-L5: Posterior osteophyte with an annular fissure and a right subarticular extrusion. Diffuse disc bulge. Facet arthropathy. There is moderate right subarticular recess narrowing displacing the traversing L5 nerve root. Mild overall central narrowing. There is also mild narrowing at the left subarticular recess. Moderate right and uwqa-wd-uldifvwx left neural foraminal narrowing. L5-S1: Ligamentum flavum hypertrophy and a diffuse disc bulge. Posterior osteophyte. Mild to moderate central narrowing affecting the right greater than left subarticular recesses. Mild bilateral neural foraminal narrowing. IMPRESSION: Severe central narrowing at L3-L4. Moderate spondylosis at other levels as described above. Dextroconvex spinal curvature and trace multilevel spondylolisthesis. Dictated by: Jeremiah Head M.D. on 02/24/2022 at 14:16 Approved by: Jeremiah Head M.D. on 02/24/2022 at 14:27
== END ==
PROVIDERS: PCP Family Medicine; Referring Provider Family Medicine; Visit Provider Family Medicine
DX: M47.816 Spondylosis without myelopathy or radiculopathy, lumbar region (principal); M51.36 Other intervertebral disc degeneration, lumbar region; M41.86 Other forms of scoliosis, lumbar region; M48.061 Spinal stenosis, lumbar region without neurogenic claudication; M54.50 Low back pain, unspecified; M54.9 Dorsalgia, unspecified; G89.29 Other chronic pain
CPT/HCPCS: 72100; 72148

== ENCOUNTER → 2022-03-04 07:33 | Outpatient (CLI) | payer MEDICARE, OTHER, SELFPAY ==
[2022-03-04 08:21] LABS: Add Manual Diff / Slide Review NO; Basophils Absolute Auto 100 /uL (0-100); Eosinophils Absolute Auto 200 /uL (0-450); Eosinophils Percent Auto 3.9 % (2-4); Hematocrit 37.1 % (36-46); Hemoglobin 12.9 g/dL (12.0-16.0); Lymphocytes Absolute Auto 2000 /uL (1100-4500); Lymphocytes Percent Auto 34.6 % (25-40); Mean Corpuscular HGB Conc 34.7 % (30-36); Mean Corpuscular Hemoglobin 33.3 PG (26-34); Mean Corpuscular Volume 96.1 fL (80-100); Monocytes Absolute Auto 500 /uL (0-900); Monocytes Percent Auto 8.1 % (3-14); Neutrophils Absolute Auto 3100 /uL (1500-7000); Neutrophils Percent Auto 52.4 % (50-75); Platelet Count 215 X10^3/uL (150-400); Red Blood Cell Count 3.86 X10^6/uL (4.0-5.2); Red Cell Distribution Width 13.4 % (11.6-14.8); White Blood Cell Count 5.9 X10^3/uL (4.5-11.0)
[2022-03-04 08:34] LABS: Hemoglobin A1C% w Est Avg Glu 6.3 % (4.0-6.0)
[2022-03-04 08:35] LABS: Alanine Aminotransferase 14 IU/L (<35); Albumin 4.1 g/dL (3.5-5.0); Albumin Globulin Ratio 1.4 (1.0-2.8); Alkaline Phosphatase 48 U/L (38-126); Aspartate Aminotransferase 25 IU/L (14-36); BUN Creatinine Ratio 24.3 (6-22); Bilirubin Total 0.5 mg/dL (0.2-1.3); Blood Urea Nitrogen 25 mg/dL (7-17); Calcium 9.7 mg/dL (8.4-10.2); Carbon Dioxide 29 mmol/L (22-32); Chloride 104 mmol/L (98-107); Cholesterol 188 mg/dL (140-199); Estimated Glomerular Filt Rate 55 mL/min (>60); Glucose 129 mg/dL (80-110); HDL Cholesterol 56 mg/dL (40-60); HEMOLYSIS < 15 (0-50); LDL Cholesterol Calculated 95 mg/dL (<100); Potassium 4.2 mmol/L (3.4-5.1); Sodium 141 mmol/L (137-145); Total Protein 7.1 g/dL (6.3-8.2); Triglycerides 185 mg/dL (35-150)
[2022-03-04 08:57] LABS: Microalbumi Creatinin Ratio Ur 11.3 ug/mg CR (<30)
[2022-03-04 09:20] LABS: TSH w/ Reflex to FT4 2.88 uIU/mL (0.47-4.68)
== END ==
PROVIDERS: PCP Family Medicine; Referring Provider Family Medicine; Visit Provider Family Medicine
DX: E11.9 Type 2 diabetes mellitus without complications (principal); E78.5 Hyperlipidemia, unspecified; G89.29 Other chronic pain; I10 Essential (primary) hypertension; M54.9 Dorsalgia, unspecified; R53.82 Chronic fatigue, unspecified; R53.83 Other fatigue; Z79.01 Long term (current) use of anticoagulants
CPT/HCPCS: 36415; 80053; 80061; 82043; 82570; 83036; 84443; 85025

== ENCOUNTER 2022-03-25 11:16 | Emergency (ER) | payer MEDICARE, OTHER, SELFPAY ==
[2022-03-25 11:27] VITALS: BP 165/66; PULSE 101; RESP 20; TEMP 36.3; O2SAT 99; BMI 26.2
--- NOTE | 2022-03-25 13:15 | ED.SKABFB ---
HPI - Skin/Abscess/Foreign Bdy <Puja Chen PA-C - Last Filed: 03/25/22 17:07> General Chief complaint: Skin/Abscess/Foreign Body Stated complaint: [facility] wanted her to come t[facility], 2 cyst that are sore Time Seen by Provider: 03/25/22 11:36 Source: patient Mode of arrival: Family Vehicle Limitations: no limitations History of Present Illness HPI narrative: 82-year-old female with past medical history diabetes, PE, hyperlipidemia, hypertension presents to the ED with 1 week of painful cyst on the left shoulder. Patient was seen in the walk-in clinic on 03/23/2022, elected not to do an I&D, opted for oral antibiotics. Patient has been taking doxycycline for the past 2 days with no relief. Patient states that the cyst has become more painful. Patient also endorses that this cyst has bothered her for several years, acts up every once in awhile, she gets a drained, reoccurs. Patient has not seen a optical worker for this. Patient is also on warfarin for a history of PEs. Patient denies other symptoms including fever, chills, chest pain, shortness of breath, nausea, vomiting. Related Data Home Medications Medication Instructions Recorded Confirmed warfarin 5 mg tablet See Rx Instructions PO .COMPLEX 12/26/21 03/18/22 Previous Rx's Medication Instructions Recorded Accu-Chek Guide Glucose Meter #1 ea 06/07/20 (blood-glucose meter) Accutrend Glucose test strips #50 ea 06/07/20 (blood sugar diagnostic) lancets (Accu-Chek Fastclix Lancet #100 ea 07/18/20 Drum) benazepril 10 mg tablet See Rx Instructions .Route 06/27/21 .COMPLEX #90 tabs simvastatin 80 mg tablet See Rx Instructions .Route 06/28/21 .COMPLEX #90 tabs metformin 500 mg tablet See Rx Instructions .Route 09/12/21 .COMPLEX #90 tabs hydrochlorothiazide 25 mg tablet 25 mg PO DAILY #90 tabs 12/16/21 gabapentin 300 mg capsule See Rx Instructions .Route 01/07/22 .COMPLEX #270 caps doxycycline hyclate 100 mg capsule 100 mg PO BID 7 days #14 caps 03/23/22 Allergies Allergy/AdvReac Type Severity Reaction Status Date / Time No Known Drug Allergies Allergy Verified 03/25/22 11:27 Review of Systems <Puja Chen PA-C - Last Filed: 03/25/22 17:07> Review of Systems ROS Unobtainable: All systems reviewed & are unremarkable except as noted in HPI and below Constitutional Constitutional: Denies chills, Denies fatigue, Denies fever(s), Denies frequent falls, Denies lethargy and Denies weakness Eyes Eyes: Denies change in vision, Denies eye discharge, Denies irritation and Denies loss of vision ENT Ears, Nose, Mouth, and Throat: Denies change in voice, Denies dizziness, Denies neck pain, Denies sore throat and Denies throat swelling Cardiovascular Cardiovascular: Denies chest pain, Denies irregular heart rhythm, Denies lightheadedness, Denies palpitations, Denies dyspnea, Denies dyspnea on exertion and Denies orthopnea Respiratory Respiratory: Denies cough, Denies dyspnea, Denies dyspnea on exertion and Denies wheezing Gastrointestinal Gastrointestinal: Denies abdominal pain, Denies change in bowel habits, Denies diarrhea, Denies nausea and Denies vomiting Genitourinary Genitourinary: Denies hematuria, Denies flank pain, Denies urinary incontinence and Denies urinary urgency Musculoskeletal Musculoskeletal: Denies back pain, Denies muscle weakness, Denies neck pain, Denies numbness and Denies tingling Integumentary/Breasts Skin/Breast: Denies pruritus, Reports erythema, Denies rash and Reports wounds Comments: Cyst/abscess on left shoulder Neurologic Neurologic: Denies behavioral changes, Denies confusion, Denies dizziness, Denies frequent falls, Denies loss of vision, Denies numbness, Denies tingling and Denies weakness Psychiatric Psychiatric: Denies anxiety, Denies behavioral changes, Denies confusion, Denies depression, Denies homicidal ideation and Denies suicidal ideation Endocrine Endocrine: Denies fatigue, Denies flushing and Denies palpitations Hematologic/Lymphatic Hematologic/Lymphatic: Denies easy bruising Allergic/Immunologic Allergic/Immunologic: Denies urticaria, Denies throat swelling and Denies wheezing Patient History <Puja Chen PA-C - Last Filed: 03/25/22 17:07> Medical History Allergic rhinitis (1958) Cataracts, bilateral (2009) Chickenpox Chronic back pain (1973) Diverticular disease (2016) Essential hypertension Fatigue Heart murmur, aortic History of DVT of lower extremity (2009) History of pulmonary embolism (05/2010) Hyperlipidemia 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, 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 Lumbar degenerative disc disease Measles Polio (1954) Postherpetic neuralgia Pulmonary embolism (2013) Skin cancer (2013) Substance abuse (1959) Vertigo (Unknown) Surgical History History of section (1959) History of section (1961) History of section (1966) History of lumbar laminectomy (~1973) S/P hysterectomy (1988) Status post breast reduction (1994) Status post cataract surgery (2009) Social History Smoking Status: Former smoker Tobacco: How many years used: 15 alcohol intake: former (Hasn't had anything to drink in 47 years) substance use type: does not use eating out: rarely or never Type(s) of exercise: walking Smoking Status: Former smoker tobacco type: cigarettes alcohol intake frequency: 0-2 drinks per day Substance Use Type: does not use Exam <Puja Chen PA-C - Last Filed: 03/25/22 17:07> Narrative Exam Narrative: Const General:?cooperative, healthy appearing and comfortable [facility] Head:?normal to inspection Ears:?hearing grossly normal bilaterally Nose:?external nose normal Face and sinus:?normal facial exam and sinuses nontender Mouth:?oral mucosae normal Throat:?posterior oropharynx normal Eyes General:?appearance normal, both eyes and all related structures Neck Neck:?normal visual inspection and no lymphadenopathy noted Resp Effort & Inspection:?normal respiratory effort Auscultation:?clear to auscultation bilaterally Cardio Rate:?regular rate Rhythm:?regular rhythm Integumentary Indurated, fluctuant, tender abscess. No drainage visualized on exam. No overlying erythema. Neuro General:?patient alert, patient awake and patient oriented x3 Initial Vital Signs Initial Vital Signs: Vital Signs Temperature 97.4 F L 03/25/22 11:27 Pulse Rate 101 H 03/25/22 11:27 Respiratory Rate 20 03/25/22 11:27 Blood Pressure 165/66 H 03/25/22 11:27 Pulse Oximetry 99 03/25/22 11:27 Oxygen Delivery Method 03/25/22 11:27 <DO Zohra Sarkar Last Filed: 03/25/22 17:10> Initial Vital Signs Initial Vital Signs: Vital Signs Temperature 97.4 F L 03/25/22 11:27 Pulse Rate 101 H 03/25/22 11:27 Respiratory Rate 20 03/25/22 11:27 Blood Pressure 165/66 H 03/25/22 11:27 Pulse Oximetry 99 03/25/22 11:27 Oxygen Delivery Method 03/25/22 11:27 Procedures <Puja Chen PA-C - Last Filed: 03/25/22 17:07> Abscess I/D I&D #1: Site: back Side (if applicable): left Local Anesthetic: lidocaine 2% and with epi Amount of anesthesia used (mL): 6 Technique: incised with #11 blade Amount of fluid expressed (mL): 3 Packing used?: plain Course <Puja Chen PA-C - Last Filed: 03/25/22 17:07> Orders Ordered: ED Orders 03/25/22 14:45 Wound Culture and Gram Stain Stat Discontinued Medications Acetaminophen (Acetaminophen 325 Mg Tablet) 975 mg PO NOW ONE Stop: 03/25/22 13:04 Last Admin: 03/25/22 13:22 Dose: 975 mg Documented By: LAWRENCE Lidocaine/Epinephrine (Lidocaine 2% W/Epi Inj) 20 ml INJ INTRA-OP ONE Stop: 03/25/22 13:14 Last Admin: 03/25/22 13:25 Dose: 20 ml Documented By: LAWRENCE Vital Signs Vital signs: Vital Signs - 8 hr 03/25/22 11:27 03/25/22 13:29 Temperature 97.4 F L Pulse Rate 101 H 76 Respiratory Rate 20 18 Blood Pressure 165/66 H 145/64 H Pulse Oximetry 99 99 Oxygen Delivery Method Room Air Room Air <DO Zohra Sarkar Last Filed: 03/25/22 17:10> Orders Ordered: ED Orders 03/25/22 14:45 Wound Culture and Gram Stain Stat Discontinued Medications Acetaminophen (Acetaminophen 325 Mg Tablet) 975 mg PO NOW ONE Stop: 03/25/22 13:04 Last Admin: 03/25/22 13:22 Dose: 975 mg Documented By: LAWRENCE Lidocaine/Epinephrine (Lidocaine 2% W/Epi Inj) 20 ml INJ INTRA-OP ONE Stop: 03/25/22 13:14 Last Admin: 03/25/22 13:25 Dose: 20 ml Documented By: LAWRENCE Vital Signs Vital signs: Vital Signs - 8 hr 03/25/22 11:27 03/25/22 13:29 Temperature 97.4 F L Pulse Rate 101 H 76 Respiratory Rate 20 18 Blood Pressure 165/66 H 145/64 H Pulse Oximetry 99 99 Oxygen Delivery Method Room Air Room Air MDM - Skin/Abscess/Foreign Bdy <Puja Chen PA-C - Last Filed: 03/25/22 17:07> MDM Narrative Medical decision making narrative: 82-year-old female with past medical history diabetes, PE, hyperlipidemia, hypertension presents to the ED with 1 week of painful cyst on the left shoulder. Concern for abscess versus infected sebaceous cyst versus other. Will perform an I&D. I&D performed, wound was packed. Patient tolerated the procedure well. Recommend re-evaluation in 24-48 hours for wound repacking. Recommend referral to Dermatology from patient's PCP to evaluate if the wound needs further surgical intervention. ED return precautions were discussed with patient. Patient verbalized understanding. Discharge Plan Departure Patient Disposition: Home Clinical Impression: Infected sebaceous cyst Instructions: DI for Skin Abscess Activity Restrictions/Additional Instructions: You were evaluated in the ED today for a infected cyst. Your symptoms likely due to an infected sebaceous cyst. The cyst was incised and drained and a wick put in for continued drainage. You will need the wound evaluated and the wick changed in 24-48 hours, for which you may return to the ED or go to the walk-in clinic. Please also consult your PCP to get a referral to Dermatology for evaluation of the cyst and possible further surgical procedure on it. If you develop fevers, chills, persistent vomiting, worsening pain, please return to the ED immediately. You may continue to take and finish the full course of antibiotics that you are already on. Prescriptions: No Action doxycycline hyclate 100 mg capsule 100 mg PO BID 7 Days Qty: 14 0RF (DME) lancets [Accu-Chek Fastclix Lancet Drum] Misc See Rx Instructions .ROUTE .MEDSUPPLY Qty: 100 2RF Rx Instructions: As directed daily benazepril 10 mg tablet See Rx Instructions .ROUTE .COMPLEX Qty: 90 3RF Dose Instruction: take 1 tablet by mouth once daily Rx Instructions: take 1 tablet by mouth once daily simvastatin 80 mg tablet See Rx Instructions .ROUTE .COMPLEX Qty: 90 3RF Dose Instruction: take 1 tablet by mouth at bedtime Rx Instructions: take 1 tablet by mouth at bedtime metformin 500 mg tablet See Rx Instructions .ROUTE .COMPLEX Qty: 90 3RF Dose Instruction: take 1 tablet by mouth once daily Rx Instructions: take 1 tablet by mouth once daily hydrochlorothiazide 25 mg tablet 25 mg PO DAILY Qty: 90 3RF gabapentin 300 mg capsule See Rx Instructions .ROUTE .COMPLEX Qty: 270 0RF Dose Instruction: take 1 capsule by mouth three times a day Rx Instructions: take 1 capsule by mouth three times a day (DME) blood-glucose meter [Accu-Chek Guide Glucose Meter] [facility] See Rx Instructions .ROUTE .MEDSUPPLY Qty: 1 0RF Rx Instructions: As directed daily (DME) Accutrend Glucose test strips Strip See Rx Instructions .ROUTE .MEDSUPPLY Qty: 50 2RF Rx Instructions: As directed daily warfarin 5 mg tablet See Rx Instructions PO .COMPLEX Rx Instructions: orally; 7.5mg Thursday, Thursday and Thursday and 5mg by mouth all other days, or as directed. Referrals: Brenton Gan MD [Primary Care Provider] - Visit Report Forms: Patient Portal/API <Zoltan Fenton, DO - Last Filed: 03/25/22 17:10> [facility] Attending [facility] Attestation: Dr Fenton Co-Sign Statement: I was available for consultation during this patient's emergency department visit. This chart is signed by myself for administrative purposes only. I did not have direct contact with this patient during this visit. They were seen independently by the APC.
[2022-03-25] MEDS: ACETAMINOPHEN 325 MG TABLET 975 MG PO (13:22)
[2022-03-25] MEDS: LIDOCAINE 2% W/EPI INJ 20 ML INJ (13:25)
[2022-03-25 13:29] VITALS: BP 145/64; PULSE 76; RESP 18; O2SAT 99
== END 2022-03-25 14:51 | disposition home or self-care (01) ==
PROVIDERS: Emergency Provider Student in an Organized Health Care Education/Training Program; PCP Family Medicine
DX: L72.3 Sebaceous cyst (principal)
CPT/HCPCS: 10060; 87070; 87075; 87147; 87205; 99283

== ENCOUNTER 2022-07-08 13:00 | Outpatient (RCR) | payer MEDICARE, OTHER, SELFPAY ==
--- NOTE | 2022-05-20 16:25 | PT.OIE ---
Current Diagnoses Other chronic pain (05/20/22) Spondylosis without myelopathy or radiculopathy, lumbar region (05/20/22) Other intervertebral disc degeneration, lumbar region (05/20/22) Low back pain, unspecified (05/20/22) Past Medical History (Last Reviewed 03/25/22 @ 13:19 by Puja Chen PA-C) Allergic rhinitis (1958) Cataracts, bilateral (2009) Chickenpox Chronic back pain (1973) Diverticular disease (2016) Essential hypertension Fatigue Heart murmur, aortic History of DVT of lower extremity (2009) History of pulmonary embolism (05/2010) Hyperlipidemia Knee pain, left (~2011) [facility] current use of anticoagulant therapy Lumbar degenerative disc disease Measles Polio (1954) Postherpetic neuralgia Pulmonary embolism (2013) Skin cancer (2013) Substance abuse (1959) Vertigo (Unknown) Past Surgical History (Last Reviewed 03/25/22 @ 13:19 by Puja Chen PA-C) History of section (1959) History of section (1961) History of section (1966) History of lumbar laminectomy (~1973) S/P hysterectomy (1988) Status post breast reduction (1994) Status post cataract surgery (2009) Visit Care Team Role Provider Type Brenton Gan MD Attending Provider Physician Family Provider Primary Care Provider Referring Provider Specialty: Family Practice Address: [address] [place] [address], [facility] Email: [email or web address] Physical Therapy Initial Evaluation PT-OP-A Visit Information Start: 05/20/22 11:33 Freq: Status: Active Protocol: Document 05/20/22 14:34 SAK (Rec: 05/20/22 16:02 SAK [id number]) Out-Patient Physical Therapy Visit Information Visit Information Visit Type Initial Evaluation Visit Start Time 15:15 Visit Stop Time 16:20 Total Visit Minutes 65 Visit Number 1 Evaluation Information Evaluation Date 05/20/22 Precautions Precautions prior lumbar lami x 2, blood clots on chronic anticoagulation, DM, 3 c- sections, history polio PT-OP-B Current Condition Start: 05/20/22 11:33 Freq: Status: Active Protocol: Document 05/20/22 14:34 SAK (Rec: 05/20/22 16:02 [facility] [id number]) Current Condition History of Current Condition Onset Date 40 yrs Current Complaints worsening low back, hip pain History of Current Condition 40 yrs ago 2 lumbar laminectomies 1973 and 1975, has had intermittant back pain since then. Always had back pain; golf, walked, hiked. Has been getting worse, right has always hurt, for 3 months has new pain left side. States she can stretch and make it go away, but is worried that if that no longer works, feel she won't be able to walk; rotates and extends left while pushing down on left hip. Walks, but no other exercise program, takes care of home, dog, yard. Uses heat. Has always had numbness in calves to ankles. Diagnosed with Type II DM. Sleeps mostly on right side. 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 Facet arthropathy. Mild central narrowing involving the left subarticular recess. Moderate right and left neural foraminal narrowing. L1-L2: Mild central narrowing . Diffuse disc bulge and a small central protrusion. Mlah-gn-viovfypg facet arthropathy. Mild right and moderate left neural foraminal narrowing. L2-L3: Diffuse disc bulge and a superimposed central protrusion. Moderate central narrowing involving both subarticular recesses. There is facet arthropathy. Mild bilateral neural foraminal narrowing. L3-L4: Ligamentum flavum hypertrophy, central protrusion, and a diffuse disc bulge combined with moderate to severe facet arthropathy. Severe central narrowing affecting the left greater than right subarticular recesses. Mild left neural foraminal narrowing. The disc is slightly uncovered at this level. L4-L5: Posterior osteophyte with an annular fissure and a right subarticular extrusion. Diffuse disc bulge. Facet arthropathy. There is moderate right subarticular recess narrowing displacing the traversing L5 nerve root. Mild overall central narrowing . There is also mild narrowing at the left subarticular recess. Moderate right and gpla-ju-mldflwnk left neural foraminal narrowing. L5-S1: Ligamentum flavum hypertrophy and a diffuse disc bulge. Posterior osteophyte. Mild to moderate central narrowing affecting the right greater than left subarticular recesses. Mild bilateral neural foraminal narrowing. Saw PA in neurosurgery dept in [facility]; suggested see GP and start PT. Stated surgery wouldn't help. Treatment Goals Patient/Caregiver Goals Decrease back pain and improve her activity tolerance PT-OP-C Subjective Start: 05/20/22 11:33 Freq: Status: Active Protocol: Document 05/20/22 14:34 SAK (Rec: 05/20/22 16:02 [facility] [id number]) OP-PT Pain Assessment Pain Assessment Grid Paper Pain Assessment Grid Completed Yes Location bilateral lumbar spine Pain Location Details right greater than left Intensity 5 Scale Used Numeric (0 - 10) Description Aching,Pinching,Pressure,Sharp Frequency Frequent Pain Aggravating Factors Activity,Standing,Walking, Lifting Pain Alleviating Factors Heat,Inactivity,Position, Sitting PT-OP-H Neuro Start: 05/20/22 11:33 Freq: Status: Active Protocol: Document 05/20/22 14:34 SAK (Rec: 05/20/22 16:02 [facility] [id number]) Sensation Evaluation Gross Sensation Gross Sensation Left LE Impaired,Right LE Impaired Sensation Description Paresthesia,Pins & [place] PT-OP-J Posture/Palpation/Skin Start: 05/20/22 11:33 Freq: Status: Active Protocol: Document 05/20/22 14:34 SAK (Rec: 05/20/22 16:02 [facility] [id number]) Posture Evaluation Position Standing Head/C-Spine Posture Forward Head T-Spine Posture Increased Kyphosis L-Spine Posture Flattened Shoulder Posture (L) Rounded,(R) Rounded Scapula Posture (L) Protracted,(R) Protracted Pelvis Posture Anteriorly Tilted Weight Distribution Weight Shifted Left Hip Posture (L) Externally Rotated,(R) Externally Rotated Ankle/Foot Posture (L) Pronated,(R) Pronated Palpation Assessment Location lumbar spine Palpation Findings Soft Tissue Tightness,Muscle Guarding PT-OP-K Range of Motion Start: 05/20/22 11:33 Freq: Status: Active Protocol: Document 05/20/22 14:34 SAK (Rec: 05/20/22 16:02 [facility] [id number]) Lumbar Spine Range of Motion Lumbar Spine Active Testing Position Standing Flexion 30 Extension 10 Rotation Left 20 Rotation Right 20 Lateral Flexion Left 40 Lateral Flexion Right 25 ROM Limitations Soft Tissue Tightness,Pain Hip Goniometric Range of Motion Hip Left Hip ROM WFL No Testing Position Supine PT-OP-Q Treatments Start: 05/20/22 11:33 Freq: Status: Active Protocol: Document 05/20/22 14:34 [facility] (Rec: 05/20/22 16:02 [facility] [id number]) Self-Care/Home Management Treatment Education Patient Education Home Exercise Program,Pain Management,Posture PT-OP-T Assessment and Plan Start: 05/20/22 11:33 Freq: Status: Active Protocol: Document 05/20/22 14:34 [facility] (Rec: 05/20/22 16:02 [facility] [id number]) Physical Therapy Assessment Rehab Potential Rehabilitation Potential Good Evaluation Complexity Number of Personal Factors/Comorbidities 1-2 Number of Body Systems Impaired 3 Clinical Presentation at Evaluation Evolving Impairments Impairments Activity Tolerance,Pain, Posture,Soft Tissue Mobility, Strength Goals Four Impairment postural dysfunction Short Term Goal (STG) Patient to be educated in neutral postural alignment sitting and standing STG Duration 06/18/22 Longterm Goal (LTG) patient will demonstate ability to self-correct postural alignment in sitting and standing toward neutral for improved function LTG Duration 08/18/22 Three Impairment weakness and dec flexibility Impairment contributing to lumbar spine dysfunction, malalignment and pain Short Term Goal (STG) patient to be instructed in HEP to support therapy activities and be compliant and independent STG Duration 07/16/22 Teacher Specialist Goal (LTG) Patient will demonstrate improvement in core, pelvis, and hip strength and flexibility to WNL to allow her to do her usual activities with minimal to no pain. LTG Duration 08/18/22 One Impairment Decreased activity tolerance Impairment Increased pain immediately upon standing leading to poor standing and walking tolerance Short Term Goal (STG) Patient able to stand or walk 15 min without an increase in pain STG Duration 07/02/22 Longterm Goal (LTG) Patient able to stand or walk 1 hour with min to no increase in pain LTG Duration 08/18/22 Two Impairment bilateral lumbar pain right greater than left Impairment 5/10 limiting activity Teacher Specialist Goal (LTG) Decrease pain to no greater than 2/10 with all usual activities LTG Duration 08/18/22 Assessment Summary Assessment Patient presents with chronic, function-limiting pain worsening over the past year with newer pain on left side. Evaluation reveals scoliosis covex left T, right lumbar, poor core and gluteal strength , tight piriformis dwayne, right greater than left, tight hamstrings dwayne right greater than left. In standing left iliac crest higher, supine right creast higher. Right leg longer, left shorter in supine. Poor muscle tone in abdominals and gluteals. Palpable increase in muscle tension and tightness right lumbar paraspinals, dwayne piriformis right greater than left. Dwayne hip flexor and quad tightness. Feel patient would benefit from PT to address muscle asymmetries and altered muscle activation sequences. We discussed POC and she was in agreement. Physical Therapy Plan Frequency and Duration Frequency of Treatment 2x/Week Duration of treatment (weeks) 12 Plan of Care Start Date 05/20/22 Plan of Care End Date 08/18/22 Therapeutic Interventions Therapeutic Interventions Home Exercise Program,Manual Therapy,Neuromuscular Re- education,Patient/Caregiver Education,Self-Care/Home Management,Soft Tissue Mobilization,Taping, Therapeutic Activities, Therapeutic Exercises Modalities Electric Stimulation,Hot Packs ,Ultrasound Next Visit Focus/Plan Next Note Type Treatment Note Next Visit Plan Review HEP, bed positioning. Gentle progression of ther ex for strengthening and flexibility of core, hips, and pelvis and postural correction per POC. Modalities and manual therapy PRN.
--- NOTE | 2022-05-20 16:26 | PT.OPPOC ---
Physical, Occupational & Speech Therapy At [facility] Current Diagnoses Other chronic pain (05/20/22) Spondylosis without myelopathy or radiculopathy, lumbar region (05/20/22) Other intervertebral disc degeneration, lumbar region (05/20/22) Low back pain, unspecified (05/20/22) Visit Care Team Role Provider Type Brenton Gan MD Attending Provider Physician Family Provider Primary Care Provider Referring Provider Specialty: Family Practice Address: [address] [place] [address] Email: [email or web address] Plan Of Care PT-OP-T Assessment and Plan Start: 05/20/22 11:33 Freq: Status: Active Protocol: Document 05/20/22 14:34 SAK (Rec: 05/20/22 16:02 SAK [id number]) Physical Therapy Assessment Rehab Potential Rehabilitation Potential Good Evaluation Complexity Number of Personal Factors/Comorbidities 1-2 Number of Body Systems Impaired 3 Clinical Presentation at Evaluation Evolving Impairments Impairments Activity Tolerance,Pain, Posture,Soft Tissue Mobility, Strength Goals Four Impairment postural dysfunction Short Term Goal (STG) Patient to be educated in neutral postural alignment sitting and standing STG Duration 06/18/22 Fdc Goal (LTG) patient will demonstate ability to self-correct postural alignment in sitting and standing toward neutral for improved function LTG Duration 08/18/22 Three Impairment weakness and dec flexibility Impairment contributing to lumbar spine dysfunction, malalignment and pain Short Term Goal (STG) patient to be instructed in HEP to support therapy activities and be compliant and independent STG Duration 07/16/22 Fdc Goal (LTG) Patient will demonstrate improvement in core, pelvis, and hip strength and flexibility to WNL to allow her to do her usual activities with minimal to no pain. LTG Duration 08/18/22 One Impairment Decreased activity tolerance Impairment Increased pain immediately upon standing leading to poor standing and walking tolerance Short Term Goal (STG) Patient able to stand or walk 15 min without an increase in pain STG Duration 07/02/22 Fdc Goal (LTG) Patient able to stand or walk 1 hour with min to no increase in pain LTG Duration 08/18/22 Two Impairment bilateral lumbar pain right greater than left Impairment 5/10 limiting activity Office Sweeper Goal (LTG) Decrease pain to no greater than 2/10 with all usual activities LTG Duration 08/18/22 Assessment Summary Assessment Patient presents with chronic, function-limiting pain worsening over the past year with newer pain on left side. Evaluation reveals scoliosis covex left T, right lumbar, poor core and gluteal strength , tight piriformis dwayne, right greater than left, tight hamstrings dwayne right greater than left. In standing left iliac crest higher, supine right creast higher. Right leg longer, left shorter in supine. Poor muscle tone in abdominals and gluteals. Palpable increase in muscle tension and tightness right lumbar paraspinals, dwayne piriformis right greater than left. Dwayne hip flexor and quad tightness. Feel patient would benefit from PT to address muscle asymmetries and altered muscle activation sequences. We discussed POC and she was in agreement. Physical Therapy Plan Frequency and Duration Frequency of Treatment 2x/Week Duration of treatment (weeks) 12 Plan of Care Start Date 05/20/22 Plan of Care End Date 08/18/22 Therapeutic Interventions Therapeutic Interventions Home Exercise Program,Manual Therapy,Neuromuscular Re- education,Patient/Caregiver Education,Self-Care/Home Management,Soft Tissue Mobilization,Taping, Therapeutic Activities, Therapeutic Exercises Modalities Electric Stimulation,Hot Packs ,Ultrasound Next Visit Focus/Plan Next Note Type Treatment Note Next Visit Plan Review HEP, bed positioning. Gentle progression of ther ex for strengthening and flexibility of core, hips, and pelvis and postural correction per POC. Modalities and manual therapy PRN. Plan of Care Dates Plan of Care Start Date 05/20/22 Plan of Care End Date 08/18/22 Electronically Signed by: Catina Beltran, PT 05/20/22 8810 If you are in agreement with this Plan of Care, please return a signed and dated copy. I have reviewed this Plan of Care and certify that the skilled therapy services above are required to meet the patient?s needs. Physician Signature Date Printed Name and Credentials Clinical Instructor Signature Printed Name and Credentials
--- NOTE | 2022-05-28 16:00 | PT.OTN ---
Current Diagnoses Other chronic pain (05/28/22) Spondylosis without myelopathy or radiculopathy, lumbar region (05/28/22) Other intervertebral disc degeneration, lumbar region (05/28/22) Low back pain, unspecified (05/28/22) Physical Therapy Treatment Note PT-OP-A Visit Information Start: 05/20/22 11:33 Freq: Status: Active Protocol: Document 05/28/22 13:43 SAK (Rec: 05/28/22 14:30 SAK [id number]) Out-Patient Physical Therapy Visit Information Visit Information Visit Type Treatment Note Visit Start Time 13:45 Visit Stop Time 14:40 Total Visit Minutes 55 Visit Number 2 Evaluation Information Evaluation Date 05/20/22 Precautions Precautions prior lumbar lami x 2, blood clots on chronic anticoagulation, DM, 3 c- sections, history polio PT-OP-B Current Condition Start: 05/20/22 11:33 Freq: Status: Active Protocol: Document 05/28/22 13:43 SAK (Rec: 05/28/22 14:30 SAK [id number]) Current Condition History of Current Condition Onset Date 40 yrs Current Complaints worsening low back, hip pain History of Current Condition 40 yrs ago 2 lumbar laminectomies 1973 and 1975, has had intermittant back pain since then. Always had back pain; golf, walked, hiked. Has been getting worse, right has always hurt, for 3 months has new pain left side. States she can stretch and make it go away, but is worried that if that no longer works, feel she won't be able to walk; rotates and extends left while pushing down on left hip. Walks, but no other exercise program, takes care of home, dog, yard. Uses heat. Has always had numbness in calves to ankles. Diagnosed with Type II DM. Sleeps mostly on right side. Not receptive to home care consultant but is going to try massage and accupuncture Prior Treatments and Tests MRI 02/22/22: Specific levels: T12-L1: Posterior disc protrusion and along with an annular fissure and osteophytes. Facet arthropathy. Mild central narrowing involving the left subarticular recess. Moderate right and left neural foraminal narrowing. L1-L2: Mild central narrowing . Diffuse disc bulge and a small central protrusion. Ovhg-[id number] facet arthropathy. Mild right and moderate left neural foraminal narrowing. L2-L3: Diffuse disc bulge and a superimposed central protrusion. Moderate central narrowing involving both subarticular recesses. There is facet arthropathy. Mild bilateral neural foraminal narrowing. L3-L4: Ligamentum flavum hypertrophy, central protrusion, and a diffuse disc bulge combined with moderate to severe facet arthropathy. Severe central narrowing affecting the left greater than right subarticular recesses. Mild left neural foraminal narrowing. The disc is slightly uncovered at this level. L4-L5: Posterior osteophyte with an annular fissure and a right subarticular extrusion. Diffuse disc bulge. Facet arthropathy. There is moderate right subarticular recess narrowing displacing the traversing L5 nerve root. Mild overall central narrowing . There is also mild narrowing at the left subarticular recess. Moderate right and qcih-vg-fdngfope left neural foraminal narrowing. L5-S1: Ligamentum flavum hypertrophy and a diffuse disc bulge. Posterior osteophyte. Mild to moderate central narrowing affecting the right greater than left subarticular recesses. Mild bilateral neural foraminal narrowing. Saw PA in neurosurgery dept in [facility]; suggested see GP and start PT. Stated surgery wouldn't help. PT-OP-C Subjective Start: 05/20/22 11:33 Freq: Status: Active Protocol: Document 05/28/22 13:43 [facility] (Rec: 05/28/22 14:30 [facility] [id number]) OP-PT Subjective Patient Comments Patient Comments Has been doing the exercises but a couple of them hurt her back and needs to review. Liked hot pack, has used heating pad at home. Tried using pillow between her knees , but didn't feel like it would work for her. PT-OP-H Neuro Start: 05/20/22 11:33 Freq: Status: Active Protocol: Document 05/20/22 14:34 SAK (Rec: 05/20/22 16:02 [facility] [id number]) Sensation Evaluation Gross Sensation Gross Sensation Left LE Impaired,Right LE Impaired Sensation Description Paresthesia,Pins & [place] PT-OP-J Posture/Palpation/Skin Start: 05/20/22 11:33 Freq: Status: Active Protocol: Document 05/20/22 14:34 SAK (Rec: 05/20/22 16:02 [facility] [id number]) Posture Evaluation Position Standing Head/C-Spine Posture Forward Head T-Spine Posture Increased Kyphosis L-Spine Posture Flattened Shoulder Posture (L) Rounded,(R) Rounded Scapula Posture (L) Protracted,(R) Protracted Pelvis Posture Anteriorly Tilted Weight Distribution Weight Shifted Left Hip Posture (L) Externally Rotated,(R) Externally Rotated Ankle/Foot Posture (L) Pronated,(R) Pronated Palpation Assessment Location lumbar spine Palpation Findings Soft Tissue Tightness,Muscle Guarding PT-OP-K Range of Motion Start: 05/20/22 11:33 Freq: Status: Active Protocol: Document 05/20/22 14:34 [facility] (Rec: 05/20/22 16:02 [facility] [id number]) Lumbar Spine Range of Motion Lumbar Spine Active Testing Position Standing Flexion 30 Extension 10 Rotation Left 20 Rotation Right 20 Lateral Flexion Left 40 Lateral Flexion Right 25 ROM Limitations Soft Tissue Tightness,Pain Hip Goniometric Range of Motion Hip Left Hip ROM WFL No Testing Position Supine PT-OP-Q Treatments Start: 05/20/22 11:33 Freq: Status: Active Protocol: Document 05/28/22 13:43 [facility] (Rec: 05/28/22 14:30 [facility] [id number]) Cardio Equipment Recumbent Stepper (Sci-Fit) Duration (Minutes) 5 Resistance 1 Seat Position 8 Other cues for LE alignment Therapeutic Exercises Supine Exercises supine clam Reps/Minutes 10x5 ball squeeze Reps/Minutes 10x5 HS stretch Reps/Minutes 2x30 SKTC Reps/Minutes 2x30 bridge Reps/Minutes 10x Comments no lift yet pelvic tilt Reps/Minutes 10x Self-Care/Home Management Treatment Education Other Education self massage with tennis bal, rolling pin PT-OP-T Assessment and Plan Start: 05/20/22 11:33 Freq: Status: Active Protocol: Document 05/28/22 13:43 [facility] (Rec: 05/28/22 14:30 [facility] [id number]) Physical Therapy Assessment Goals Four Impairment postural dysfunction Short Term Goal (STG) Patient to be educated in neutral postural alignment sitting and standing STG Duration 06/18/22 Chief Ophthalmic Technician Goal (LTG) patient will demonstate ability to self-correct postural alignment in sitting and standing toward neutral for improved function LTG Duration 08/18/22 Three Impairment weakness and dec flexibility Impairment contributing to lumbar spine dysfunction, malalignment and pain Short Term Goal (STG) patient to be instructed in HEP to support therapy activities and be compliant and independent STG Duration 07/16/22 Chief Ophthalmic Technician Goal (LTG) Patient will demonstrate improvement in core, pelvis, and hip strength and flexibility to WNL to allow her to do her usual activities with minimal to no pain. LTG Duration 08/18/22 One Impairment Decreased activity tolerance Impairment Increased pain immediately upon standing leading to poor standing and walking tolerance Short Term Goal (STG) Patient able to stand or walk 15 min without an increase in pain STG Duration 07/02/22 Chief Ophthalmic Technician Goal (LTG) Patient able to stand or walk 1 hour with min to no increase in pain LTG Duration 08/18/22 Two Impairment bilateral lumbar pain right greater than left Impairment 5/10 limiting activity Chief Ophthalmic Technician Goal (LTG) Decrease pain to no greater than 2/10 with all usual activities LTG Duration 08/18/22 Assessment Summary Assessment Modification of ther ex eliminated pain with ex; no arching prior to PPT, and no lift yet with bridge (do gluteal isometric only). Added ball squeeze and supine clam, self-massage with tennis ball and rollling pin with good understanding. Ended with moist heat. Physical Therapy Plan Frequency and Duration Frequency of Treatment 2x/Week Duration of treatment (weeks) 12 Plan of Care Start Date 05/20/22 Plan of Care End Date 08/18/22 Therapeutic Interventions Therapeutic Interventions Home Exercise Program,Manual Therapy,Neuromuscular Re- education,Patient/Caregiver Education,Self-Care/Home Management,Soft Tissue Mobilization,Taping, Therapeutic Activities, Therapeutic Exercises Modalities Electric Stimulation,Hot Packs ,Ultrasound Next Visit Focus/Plan Next Note Type Treatment Note Next Visit Plan ASsess response to last session, review and progress as indicated. Added shuttle leg press, continue core and hip strengthening, possibly add sidelying hip ab and clam, sit to stand.
--- NOTE | 2022-06-03 14:38 | PT.OTN ---
Current Diagnoses Other chronic pain (06/03/22) Spondylosis without myelopathy or radiculopathy, lumbar region (06/03/22) Other intervertebral disc degeneration, lumbar region (06/03/22) Low back pain, unspecified (06/03/22) Physical Therapy Treatment Note PT-OP-A Visit Information Start: 05/20/22 11:33 Freq: Status: Active Protocol: Document 06/03/22 13:47 NBM (Rec: 06/03/22 14:38 NBM [id number]) Out-Patient Physical Therapy Visit Information Visit Information Visit Type Treatment Note Visit Start Time 13:45 Visit Stop Time 14:37 Total Visit Minutes 42 Visit Number 3 Number of DIE MAKER Visits 1 Evaluation Information Evaluation Date 05/20/22 Precautions Precautions prior lumbar lami x 2, blood clots on chronic anticoagulation, DM, 3 c- sections, history polio PT-OP-B Current Condition Start: 05/20/22 11:33 Freq: Status: Active Protocol: Document 05/28/22 13:43 SAK (Rec: 05/28/22 14:30 SAK [id number]) Current Condition History of Current Condition Onset Date 40 yrs Current Complaints worsening low back, hip pain History of Current Condition 40 yrs ago 2 lumbar laminectomies 1973 and 1975, has had intermittant back pain since then. Always had back pain; golf, walked, hiked. Has been getting worse, right has always hurt, for 3 months has new pain left side. States she can stretch and make it go away, but is worried that if that no longer works, feel she won't be able to walk; rotates and extends left while pushing down on left hip. Walks, but no other exercise program, takes care of home, dog, yard. Uses heat. Has always had numbness in calves to ankles. Diagnosed with Type II DM. Sleeps mostly on right side. Not receptive to rn progressive care but is going to try massage and accupuncture Prior Treatments and Tests MRI 02/22/22: Specific levels: T12-L1: Posterior disc protrusion and along with an annular fissure and osteophytes. Facet arthropathy. Mild central narrowing involving the left subarticular recess. Moderate right and left neural foraminal narrowing. L1-L2: Mild central narrowing . Diffuse disc bulge and a small central protrusion. [id number]-ep-[id number] facet arthropathy. Mild right and moderate left neural foraminal narrowing. L2-L3: Diffuse disc bulge and a superimposed central protrusion. Moderate central narrowing involving both subarticular recesses. There is facet arthropathy. Mild bilateral neural foraminal narrowing. L3-L4: Ligamentum flavum hypertrophy, central protrusion, and a diffuse disc bulge combined with moderate to severe facet arthropathy. Severe central narrowing affecting the left greater than right subarticular recesses. Mild left neural foraminal narrowing. The disc is slightly uncovered at this level. L4-L5: Posterior osteophyte with an annular fissure and a right subarticular extrusion. Diffuse disc bulge. Facet arthropathy. There is moderate right subarticular recess narrowing displacing the traversing L5 nerve root. Mild overall central narrowing . There is also mild narrowing at the left subarticular recess. Moderate right and [id number]-mj-kvtopvis left neural foraminal narrowing. L5-S1: Ligamentum flavum hypertrophy and a diffuse disc bulge. Posterior osteophyte. Mild to moderate central narrowing affecting the right greater than left subarticular recesses. Mild bilateral neural foraminal narrowing. Saw PA in neurosurgery dept in [facility]; suggested see GP and start PT. Stated surgery wouldn't help. PT-OP-C Subjective Start: 05/20/22 11:33 Freq: Status: Active Protocol: Document 06/03/22 13:47 NBM (Rec: 06/03/22 14:38 NBM [id number]) OP-PT Subjective Patient Comments Patient Comments Pt states no pain when sitting or in bed, pain is with walking and currently 5/10. Pt was in severe pain Thursday after picking up after dog Thursday. Daughter had to help her change bed sheets and she had to rest for the day. She tried ex's Thursday but stopped due to pain, then resumed ex's Thursday once/day instead of twice a day/. She did ex's this morning. PT-OP-H Neuro Start: 05/20/22 11:33 Freq: Status: Active Protocol: Document 05/20/22 14:34 SAK (Rec: 05/20/22 16:02 SAK [id number]) Sensation Evaluation Gross Sensation Gross Sensation Left LE Impaired,Right LE Impaired Sensation Description Paresthesia,Pins & [place] PT-OP-J Posture/Palpation/Skin Start: 05/20/22 11:33 Freq: Status: Active Protocol: Document 05/20/22 14:34 SAK (Rec: 05/20/22 16:02 [facility] [id number]) Posture Evaluation Position Standing Head/C-Spine Posture Forward Head T-Spine Posture Increased Kyphosis L-Spine Posture Flattened Shoulder Posture (L) Rounded,(R) Rounded Scapula Posture (L) Protracted,(R) Protracted Pelvis Posture Anteriorly Tilted Weight Distribution Weight Shifted Left Hip Posture (L) Externally Rotated,(R) Externally Rotated Ankle/Foot Posture (L) Pronated,(R) Pronated Palpation Assessment Location lumbar spine Palpation Findings Soft Tissue Tightness,Muscle Guarding PT-OP-K Range of Motion Start: 05/20/22 11:33 Freq: Status: Active Protocol: Document 05/20/22 14:34 SAK (Rec: 05/20/22 16:02 [facility] [id number]) Lumbar Spine Range of Motion Lumbar Spine Active Testing Position Standing Flexion 30 Extension 10 Rotation Left 20 Rotation Right 20 Lateral Flexion Left 40 Lateral Flexion Right 25 ROM Limitations Soft Tissue Tightness,Pain Hip Goniometric Range of Motion Hip Left Hip ROM WFL No Testing Position Supine PT-OP-Q Treatments Start: 05/20/22 11:33 Freq: Status: Active Protocol: Document 06/03/22 13:47 JEN (Rec: 06/03/22 14:38 [facility] [id number]) Cardio Equipment Recumbent Stepper (Sci-Fit) Duration (Minutes) 5 Resistance 1 Seat Position 8 Other cues for LE alignment Gym Equipment Shuttle Recovery Unilateral Squats Details 25>37# Reps/Time 2x10 Bilateral Squats Details 50# Reps/Time 2x10 Therapeutic Exercises Supine Exercises supine clam Reps/Minutes 10x5 Sidelying Exercises open book stretch Side bilateral Reps/Minutes x6 ea Comments L s/l R RC tear - cues for UT overactivation, pain resolves Therapeutic Activity Therapeutic Activity STS Name sit to stand Reps/Minutes x10 Comments vc for controlled descent, knee alignment PT-OP-T Assessment and Plan Start: 05/20/22 11:33 Freq: Status: Active Protocol: Document 06/03/22 13:47 JEN (Rec: 06/03/22 14:38 [facility] [id number]) Physical Therapy Assessment Goals Four Impairment postural dysfunction Short Term Goal (STG) Patient to be educated in neutral postural alignment sitting and standing STG Duration 06/18/22 Fdc Goal (LTG) patient will demonstate ability to self-correct postural alignment in sitting and standing toward neutral for improved function LTG Duration 08/18/22 Three Impairment weakness and dec flexibility Impairment contributing to lumbar spine dysfunction, malalignment and pain Short Term Goal (STG) patient to be instructed in HEP to support therapy activities and be compliant and independent STG Duration 07/16/22 Fdc Goal (LTG) Patient will demonstrate improvement in core, pelvis, and hip strength and flexibility to WNL to allow her to do her usual activities with minimal to no pain. LTG Duration 08/18/22 One Impairment Decreased activity tolerance Impairment Increased pain immediately upon standing leading to poor standing and walking tolerance Short Term Goal (STG) Patient able to stand or walk 15 min without an increase in pain STG Duration 07/02/22 Client Services Manager Goal (LTG) Patient able to stand or walk 1 hour with min to no increase in pain LTG Duration 08/18/22 Two Impairment bilateral lumbar pain right greater than left Impairment 5/10 limiting activity Client Services Manager Goal (LTG) Decrease pain to no greater than 2/10 with all usual activities LTG Duration 08/18/22 Assessment Summary Assessment Pt encouraged to be mindful of breathholding. She tolerated introduction of Shuttle Recovery leg press bilateral and unilateral and demonstrates improved self- awareness of LE alignment throughout treatment session. Sit to stand requires initial cues for knee valgus and controlled descent. Added to HEP: STS no UE support - HO given. Physical Therapy Plan Frequency and Duration Frequency of Treatment 2x/Week Duration of treatment (weeks) 12 Plan of Care Start Date 05/20/22 Plan of Care End Date 08/18/22 Therapeutic Interventions Therapeutic Interventions Home Exercise Program,Manual Therapy,Neuromuscular Re- education,Patient/Caregiver Education,Self-Care/Home Management,Soft Tissue Mobilization,Taping, Therapeutic Activities, Therapeutic Exercises Modalities Electric Stimulation,Hot Packs ,Ultrasound Next Visit Focus/Plan Next Note Type Treatment Note Next Visit Plan ASsess response to last session, review and progress as indicated. Review open book, consider added to HEP. Added shuttle leg press, continue core and hip strengthening, possibly add sidelying hip ab and clam.
--- NOTE | 2022-06-05 17:04 | PT.OTN ---
Current Diagnoses Other chronic pain (06/05/22) Spondylosis without myelopathy or radiculopathy, lumbar region (06/05/22) Other intervertebral disc degeneration, lumbar region (06/05/22) Low back pain, unspecified (06/05/22) Physical Therapy Treatment Note PT-OP-A Visit Information Start: 05/20/22 11:33 Freq: Status: Active Protocol: Document 06/05/22 09:44 SAK (Rec: 06/05/22 10:34 SAK [id number]) Out-Patient Physical Therapy Visit Information Visit Information Visit Type Treatment Note Visit Start Time 09:45 Total Visit Minutes 42 Visit Number 4 Number of MAGNETIC OBSERVER Visits 0 Evaluation Information Evaluation Date 05/20/22 Precautions Precautions prior lumbar lami x 2, blood clots on chronic anticoagulation, DM, 3 c- sections, history polio, rotator cuff tear PT-OP-B Current Condition Start: 05/20/22 11:33 Freq: Status: Active Protocol: Document 05/28/22 13:43 SAK (Rec: 05/28/22 14:30 SAK [id number]) Current Condition History of Current Condition Onset Date 40 yrs Current Complaints worsening low back, hip pain History of Current Condition 40 yrs ago 2 lumbar laminectomies 1973 and 1975, has had intermittant back pain since then. Always had back pain; golf, walked, hiked. Has been getting worse, right has always hurt, for 3 months has new pain left side. States she can stretch and make it go away, but is worried that if that no longer works, feel she won't be able to walk; rotates and extends left while pushing down on left hip. Walks, but no other exercise program, takes care of home, dog, yard. Uses heat. Has always had numbness in calves to ankles. Diagnosed with Type II DM. Sleeps mostly on right side. Not receptive to property caretaker but is going to try massage and accupuncture Prior Treatments and Tests MRI 02/22/22: Specific levels: T12-L1: Posterior disc protrusion and along with an annular fissure and osteophytes. Facet arthropathy. Mild central narrowing involving the left subarticular recess. Moderate right and left neural foraminal narrowing. L1-L2: Mild central narrowing . Diffuse disc bulge and a small central protrusion. Avsg-vy-oazbhjuk facet arthropathy. Mild right and moderate left neural foraminal narrowing. L2-L3: Diffuse disc bulge and a superimposed central protrusion. Moderate central narrowing involving both subarticular recesses. There is facet arthropathy. Mild bilateral neural foraminal narrowing. L3-L4: Ligamentum flavum hypertrophy, central protrusion, and a diffuse disc bulge combined with moderate to severe facet arthropathy. Severe central narrowing affecting the left greater than right subarticular recesses. Mild left neural foraminal narrowing. The disc is slightly uncovered at this level. L4-L5: Posterior osteophyte with an annular fissure and a right subarticular extrusion. Diffuse disc bulge. Facet arthropathy. There is moderate right subarticular recess narrowing displacing the traversing L5 nerve root. Mild overall central narrowing . There is also mild narrowing at the left subarticular recess. Moderate right and [id number]-pu-nuwmbaau left neural foraminal narrowing. L5-S1: Ligamentum flavum hypertrophy and a diffuse disc bulge. Posterior osteophyte. Mild to moderate central narrowing affecting the right greater than left subarticular recesses. Mild bilateral neural foraminal narrowing. Saw PA in neurosurgery dept in [facility]; suggested see GP and start PT. Stated surgery wouldn't help. PT-OP-C Subjective Start: 05/20/22 11:33 Freq: Status: Active Protocol: Document 06/05/22 09:44 SAK (Rec: 06/05/22 10:34 [facility] [id number]) OP-PT Subjective Patient Comments Patient Comments Patient reports still difficulty with scooping dog's poop due to inc pain in standing. Frustrated that her body doesn't do what she needs it to do. PT-OP-H Neuro Start: 05/20/22 11:33 Freq: Status: Active Protocol: Document 05/20/22 14:34 SAK (Rec: 05/20/22 16:02 [facility] [id number]) Sensation Evaluation Gross Sensation Gross Sensation Left LE Impaired,Right LE Impaired Sensation Description Paresthesia,Pins & [place] PT-OP-J Posture/Palpation/Skin Start: 05/20/22 11:33 Freq: Status: Active Protocol: Document 05/20/22 14:34 SAK (Rec: 05/20/22 16:02 [facility] [id number]) Posture Evaluation Position Standing Head/C-Spine Posture Forward Head T-Spine Posture Increased Kyphosis L-Spine Posture Flattened Shoulder Posture (L) Rounded,(R) Rounded Scapula Posture (L) Protracted,(R) Protracted Pelvis Posture Anteriorly Tilted Weight Distribution Weight Shifted Left Hip Posture (L) Externally Rotated,(R) Externally Rotated Ankle/Foot Posture (L) Pronated,(R) Pronated Palpation Assessment Location lumbar spine Palpation Findings Soft Tissue Tightness,Muscle Guarding PT-OP-K Range of Motion Start: 05/20/22 11:33 Freq: Status: Active Protocol: Document 05/20/22 14:34 [facility] (Rec: 05/20/22 16:02 [facility] [id number]) Lumbar Spine Range of Motion Lumbar Spine Active Testing Position Standing Flexion 30 Extension 10 Rotation Left 20 Rotation Right 20 Lateral Flexion Left 40 Lateral Flexion Right 25 ROM Limitations Soft Tissue Tightness,Pain Hip Goniometric Range of Motion Hip Left Hip ROM WFL No Testing Position Supine PT-OP-Q Treatments Start: 05/20/22 11:33 Freq: Status: Active Protocol: Document 06/05/22 09:44 [facility] (Rec: 06/05/22 10:34 [facility] [id number]) Cardio Equipment Recumbent Stepper (Sci-Fit) Duration (Minutes) 7 Resistance 1 Seat Position 8 Other cues for LE alignment Gym Equipment Shuttle Recovery Unilateral Squats Details 37 Reps/Time 2x10 Bilateral Squats Details 50# Reps/Time 2x10 Therapeutic Exercises Supine Exercises SKTC Reps/Minutes 2x30 bridge Reps/Minutes 10x Comments no lift yet pelvic tilt Reps/Minutes 10x Sidelying Exercises hip abduction Reps/Minutes 10x Comments cues for small lift, parallel legs clamshell Reps/Minutes 10x Comments cues for no leaning back Standing Exercises wall posture Reps/Minutes 5 min Self-Care/Home Management Treatment Education Patient Education Body Mechanics,Home Exercise Program,Posture Other Education education on obtaining long- handled pooper film loader, body mechanics. Much time on neutral posture, posture correction due to patient posterior positioning of thoracic spine with compression of l/s joints. Use of mirror, pictures, demonstration PT-OP-T Assessment and Plan Start: 05/20/22 11:33 Freq: Status: Active Protocol: Document 06/05/22 09:44 [facility] (Rec: 06/05/22 10:34 [facility] [id number]) Physical Therapy Assessment Goals Four Impairment postural dysfunction Short Term Goal (STG) Patient to be educated in neutral postural alignment sitting and standing STG Duration 06/18/22 Longterm Goal (LTG) patient will demonstate ability to self-correct postural alignment in sitting and standing toward neutral for improved function LTG Duration 08/18/22 Three Impairment weakness and dec flexibility Impairment contributing to lumbar spine dysfunction, malalignment and pain Short Term Goal (STG) patient to be instructed in HEP to support therapy activities and be compliant and independent STG Duration 07/16/22 Longterm Goal (LTG) Patient will demonstrate improvement in core, pelvis, and hip strength and flexibility to WNL to allow her to do her usual activities with minimal to no pain. LTG Duration 08/18/22 One Impairment Decreased activity tolerance Impairment Increased pain immediately upon standing leading to poor standing and walking tolerance Short Term Goal (STG) Patient able to stand or walk 15 min without an increase in pain STG Duration 07/02/22 Longterm Goal (LTG) Patient able to stand or walk 1 hour with min to no increase in pain LTG Duration 08/18/22 Two Impairment bilateral lumbar pain right greater than left Impairment 5/10 limiting activity Bottom Scrubber Goal (LTG) Decrease pain to no greater than 2/10 with all usual activities LTG Duration 08/18/22 Assessment Summary Assessment Added s/l clamshell and hip abduction with good tolerance, patient expressing weakness and challenge. Much time spent on postural education using pictures, demo, ex with improved understanding by end of treatment, will need further work. Patient advised to obtain long handled dog poop film loader. Physical Therapy Plan Frequency and Duration Frequency of Treatment 2x/Week Duration of treatment (weeks) 12 Plan of Care Start Date 05/20/22 Plan of Care End Date 08/18/22 Therapeutic Interventions Therapeutic Interventions Home Exercise Program,Manual Therapy,Neuromuscular Re- education,Patient/Caregiver Education,Self-Care/Home Management,Soft Tissue Mobilization,Taping, Therapeutic Activities, Therapeutic Exercises Modalities Electric Stimulation,Hot Packs ,Ultrasound Next Visit Focus/Plan Next Visit Plan Continue postural correction ex, review new ex sidelying, further postural correction education and ex.
--- NOTE | 2022-06-10 12:36 | PT.OTN ---
Current Diagnoses Other chronic pain (06/10/22) Spondylosis without myelopathy or radiculopathy, lumbar region (06/10/22) Other intervertebral disc degeneration, lumbar region (06/10/22) Low back pain, unspecified (06/10/22) Physical Therapy Treatment Note PT-OP-A Visit Information Start: 05/20/22 11:33 Freq: Status: Active Protocol: Document 06/10/22 11:22 NBM (Rec: 06/10/22 12:33 NBM [id number]) Out-Patient Physical Therapy Visit Information Visit Information Visit Type Treatment Note Visit Start Time 11: Visit Stop Time 12:02 Total Visit Minutes 40 Visit Number 5 Number of SALES VICE PRESIDENT Visits 1 PT-OP-B Current Condition Start: 05/20/22 11:33 Freq: Status: Active Protocol: Document 05/28/22 13:43 SAK (Rec: 05/28/22 14:30 SAK [id number]) Current Condition History of Current Condition Onset Date 40 yrs Current Complaints worsening low back, hip pain History of Current Condition 40 yrs ago 2 lumbar laminectomies 1973 and 1975, has had intermittant back pain since then. Always had back pain; golf, walked, hiked. Has been getting worse, right has always hurt, for 3 months has new pain left side. States she can stretch and make it go away, but is worried that if that no longer works, feel she won't be able to walk; rotates and extends left while pushing down on left hip. Walks, but no other exercise program, takes care of home, dog, yard. Uses heat. Has always had numbness in calves to ankles. Diagnosed with Type II DM. Sleeps mostly on right side. 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 Facet arthropathy. Mild central narrowing involving the left subarticular recess. Moderate right and left neural foraminal narrowing. L1-L2: Mild central narrowing . Diffuse disc bulge and a small central protrusion. [id number] facet arthropathy. Mild right and moderate left neural foraminal narrowing. L2-L3: Diffuse disc bulge and a superimposed central protrusion. Moderate central narrowing involving both subarticular recesses. There is facet arthropathy. Mild bilateral neural foraminal narrowing. L3-L4: Ligamentum flavum hypertrophy, central protrusion, and a diffuse disc bulge combined with moderate to severe facet arthropathy. Severe central narrowing affecting the left greater than right subarticular recesses. Mild left neural foraminal narrowing. The disc is slightly uncovered at this level. L4-L5: Posterior osteophyte with an annular fissure and a right subarticular extrusion. Diffuse disc bulge. Facet arthropathy. There is moderate right subarticular recess narrowing displacing the traversing L5 nerve root. Mild overall central narrowing . There is also mild narrowing at the left subarticular recess. Moderate right and [id number] left neural foraminal narrowing. L5-S1: Ligamentum flavum hypertrophy and a diffuse disc bulge. Posterior osteophyte. Mild to moderate central narrowing affecting the right greater than left subarticular recesses. Mild bilateral neural foraminal narrowing. Saw PA in neurosurgery dept in [facility]; suggested see GP and start PT. Stated surgery wouldn't help. PT-OP-C Subjective Start: 05/20/22 11:33 Freq: Status: Active Protocol: Document 06/10/22 11:22 NB (Rec: 06/10/22 12:33 [facility] [id number]) OP-PT Subjective Patient Comments Patient Comments Pt reports neurosurgeon advised her she has a torn disc, bulging disc, Degenerative disc, spinal stenosis, and osteoarthritis - he adivsed to do PT right away focusing on core and whatever helps with her comfort. Irene will get a second opinion. She states she cannot do sidelying clamshell ex due to pain and is at the apex of her ex's at this point , and realizes she has been pushing through things she should not have. She does not want a back surgery and the neurosurgeon advised PT, acupuncture,massage, med management. Pt states she has been overarching with posture when walking and has now found a sweet spot that doesn't hurt with walking. Back pain is usually R side, and she figured out a maneuver to alleviate L-sided back pain. She has ordered a long-handled tearoom host/hostess to citrus picker after dog. PT-OP-H Neuro Start: 05/20/22 11:33 Freq: Status: Active Protocol: Document 05/20/22 14:34 SAK (Rec: 05/20/22 16:02 SAK [id number]) Sensation Evaluation Gross Sensation Gross Sensation Left LE Impaired,Right LE Impaired Sensation Description Paresthesia,Pins & [place] PT-OP-J Posture/Palpation/Skin Start: 05/20/22 11:33 Freq: Status: Active Protocol: Document 05/20/22 14:34 SAK (Rec: 05/20/22 16:02 [facility] [id number]) Posture Evaluation Position Standing Head/C-Spine Posture Forward Head T-Spine Posture Increased Kyphosis L-Spine Posture Flattened Shoulder Posture (L) Rounded,(R) Rounded Scapula Posture (L) Protracted,(R) Protracted Pelvis Posture Anteriorly Tilted Weight Distribution Weight Shifted Left Hip Posture (L) Externally Rotated,(R) Externally Rotated Ankle/Foot Posture (L) Pronated,(R) Pronated Palpation Assessment Location lumbar spine Palpation Findings Soft Tissue Tightness,Muscle Guarding PT-OP-K Range of Motion Start: 05/20/22 11:33 Freq: Status: Active Protocol: Document 05/20/22 14:34 [facility] (Rec: 05/20/22 16:02 [facility] [id number]) Lumbar Spine Range of Motion Lumbar Spine Active Testing Position Standing Flexion 30 Extension 10 Rotation Left 20 Rotation Right 20 Lateral Flexion Left 40 Lateral Flexion Right 25 ROM Limitations Soft Tissue Tightness,Pain Hip Goniometric Range of Motion Hip Left Hip ROM WFL No Testing Position Supine PT-OP-Q Treatments Start: 05/20/22 11:33 Freq: Status: Active Protocol: Document 06/10/22 11:22 NB (Rec: 06/10/22 12:33 NB [id number]) Gym Equipment Shuttle Recovery Unilateral Squats Details 37 Reps/Time 2x20 Bilateral Squats Details Lvl1 Tb above knees for feedback Resistance 50# Reps/Time 2x15 Therapeutic Exercises Supine Exercises ball squeeze Reps/Minutes 10x5 Comments discussed only - pt to obtain ball for HEP bridge Reps/Minutes 10x Comments no lift yet, cue for TrA pelvic tilt Supine Exercise Name w/TRA focus Equipment Used self-monitoring Reps/Minutes 5 min Comments cue for breath, overactive abs , improves w/ self-monitoring medial to ASIS Sidelying Exercises clamshell Sidelying Exercise Name Remove per pt d/t pain. Self-Care/Home Management Treatment Education Patient Education Body Mechanics,Home Exercise Program,Posture Other Education Removed from HEP: s/l misti d/t pt c/o pain. Discussed core anatomy in depth and interplay between diaphragm, TrA, Pelvic Floor, and hip adductors, in relation to ex's, breathholding, and LBP. PT-OP-T Assessment and Plan Start: 05/20/22 11:33 Freq: Status: Active Protocol: Document 06/10/22 11:22 [facility] (Rec: 06/10/22 12:33 [facility] [id number]) Physical Therapy Assessment Impairments Impairments Activity Tolerance,Pain, Posture,Soft Tissue Mobility, Strength Goals Four Impairment postural dysfunction Short Term Goal (STG) Patient to be educated in neutral postural alignment sitting and standing STG Duration 06/18/22 Job Putter Up And Ticket Preparer Goal (LTG) patient will demonstate ability to self-correct postural alignment in sitting and standing toward neutral for improved function LTG Duration 08/18/22 Three Impairment weakness and dec flexibility Impairment contributing to lumbar spine dysfunction, malalignment and pain Short Term Goal (STG) patient to be instructed in HEP to support therapy activities and be compliant and independent STG Duration 07/16/22 Half-Way Goal (LTG) Patient will demonstrate improvement in core, pelvis, and hip strength and flexibility to WNL to allow her to do her usual activities with minimal to no pain. LTG Duration 08/18/22 One Impairment Decreased activity tolerance Impairment Increased pain immediately upon standing leading to poor standing and walking tolerance Short Term Goal (STG) Patient able to stand or walk 15 min without an increase in pain STG Duration 07/02/22 Job Putter Up And Ticket Preparer Goal (LTG) Patient able to stand or walk 1 hour with min to no increase in pain LTG Duration 08/18/22 Two Impairment bilateral lumbar pain right greater than left Impairment 5/10 limiting activity Job Putter Up And Ticket Preparer Goal (LTG) Decrease pain to no greater than 2/10 with all usual activities LTG Duration 08/18/22 Assessment Summary Assessment Significant time spent discussing neurosurgeon information and pt is assured PT can continue to support her needs for ADLs and functional mobility, particularly core and stairs. Discussed core anatomy in depth and interplay between diaphragm, Transverse abdominus, Pelvic Floor, and hip adductors, in relation to ex's, breathholding, and LBP. Pt demonstrates abdominal overactivation w/ PPT and improves self-awareness w/ education for self-monitoring TrA medial to ASIS. Pt tolerates increased reps for bilateral and unilateral squats on Shuttle Recovery, and LE knee alignment improves w/ Lvl 1 Tb above knees for feedback. Removed from HEP: s/ l clamshell d/t pt c/o pain. Physical Therapy Plan Therapeutic Interventions Therapeutic Interventions Home Exercise Program,Manual Therapy,Neuromuscular Re- education,Patient/Caregiver Education,Self-Care/Home Management,Soft Tissue Mobilization,Taping, Therapeutic Activities, Therapeutic Exercises Modalities Electric Stimulation,Hot Packs ,Ultrasound Next Visit Focus/Plan Next Visit Plan Consider aquatic therapy. Continue supine core progression, postural correction ex, review sidelying ex's (no clamshell), further postural correction education and ex.
--- NOTE | 2022-06-12 14:41 | PT.OTN ---
Current Diagnoses Other chronic pain (06/12/22) Spondylosis without myelopathy or radiculopathy, lumbar region (06/12/22) Other intervertebral disc degeneration, lumbar region (06/12/22) Low back pain, unspecified (06/12/22) Physical Therapy Treatment Note PT-OP-A Visit Information Start: 05/20/22 11:33 Freq: Status: Active Protocol: Document 06/12/22 13:46 SAK (Rec: 06/12/22 14:41 SAK [id number]) Out-Patient Physical Therapy Visit Information Visit Information Visit Type Treatment Note Visit Start Time 13:47 Visit Stop Time 14:30 Total Visit Minutes 43 Visit Number 6 Number of LICENSING DIRECTOR Visits 0 Precautions Precautions prior lumbar lami x 2, blood clots on chronic anticoagulation, DM, 3 c- sections, history polio, rotator cuff tear PT-OP-B Current Condition Start: 05/20/22 11:33 Freq: Status: Active Protocol: Document 05/28/22 13:43 SAK (Rec: 05/28/22 14:30 SAK [id number]) Current Condition History of Current Condition Onset Date 40 yrs Current Complaints worsening low back, hip pain History of Current Condition 40 yrs ago 2 lumbar laminectomies 1973 and 1975, has had intermittant back pain since then. Always had back pain; golf, walked, hiked. Has been getting worse, right has always hurt, for 3 months has new pain left side. States she can stretch and make it go away, but is worried that if that no longer works, feel she won't be able to walk; rotates and extends left while pushing down on left hip. Walks, but no other exercise program, takes care of home, dog, yard. Uses heat. Has always had numbness in calves to ankles. Diagnosed with Type II DM. Sleeps mostly on right side. Not receptive to resident care provider but is going to try massage and accupuncture Prior Treatments and Tests MRI 02/22/22: Specific levels: T12-L1: Posterior disc protrusion and along with an annular fissure and osteophytes. Facet arthropathy. Mild central narrowing involving the left subarticular recess. Moderate right and left neural foraminal narrowing. L1-L2: Mild central narrowing . Diffuse disc bulge and a small central protrusion. Bmgf-ki-vfljxqnj facet arthropathy. Mild right and moderate left neural foraminal narrowing. L2-L3: Diffuse disc bulge and a superimposed central protrusion. Moderate central narrowing involving both subarticular recesses. There is facet arthropathy. Mild bilateral neural foraminal narrowing. L3-L4: Ligamentum flavum hypertrophy, central protrusion, and a diffuse disc bulge combined with moderate to severe facet arthropathy. Severe central narrowing affecting the left greater than right subarticular recesses. Mild left neural foraminal narrowing. The disc is slightly uncovered at this level. L4-L5: Posterior osteophyte with an annular fissure and a right subarticular extrusion. Diffuse disc bulge. Facet arthropathy. There is moderate right subarticular recess narrowing displacing the traversing L5 nerve root. Mild overall central narrowing . There is also mild narrowing at the left subarticular recess. Moderate right and [id number]-[id number] left neural foraminal narrowing. L5-S1: Ligamentum flavum hypertrophy and a diffuse disc bulge. Posterior osteophyte. Mild to moderate central narrowing affecting the right greater than left subarticular recesses. Mild bilateral neural foraminal narrowing. Saw PA in neurosurgery dept in [facility]; suggested see GP and start PT. Stated surgery wouldn't help. PT-OP-C Subjective Start: 05/20/22 11:33 Freq: Status: Active Protocol: Document 06/12/22 13:46 [facility] (Rec: 06/12/22 14:41 [facility] [id number]) OP-PT Subjective Patient Comments Patient Comments Saw Dr. Cabral today for second opinion; states she feels more hopeful after seeing him as he told her there were things that could be done if pain gets worse. Continues with accupunture and massage. Really trying to work on postural corection. PT-OP-H Neuro Start: 05/20/22 11:33 Freq: Status: Active Protocol: Document 05/20/22 14:34 SAK (Rec: 05/20/22 16:02 [facility] [id number]) Sensation Evaluation Gross Sensation Gross Sensation Left LE Impaired,Right LE Impaired Sensation Description Paresthesia,Pins & [place] PT-OP-J Posture/Palpation/Skin Start: 05/20/22 11:33 Freq: Status: Active Protocol: Document 05/20/22 14:34 [facility] (Rec: 05/20/22 16:02 [facility] [id number]) Posture Evaluation Position Standing Head/C-Spine Posture Forward Head T-Spine Posture Increased Kyphosis L-Spine Posture Flattened Shoulder Posture (L) Rounded,(R) Rounded Scapula Posture (L) Protracted,(R) Protracted Pelvis Posture Anteriorly Tilted Weight Distribution Weight Shifted Left Hip Posture (L) Externally Rotated,(R) Externally Rotated Ankle/Foot Posture (L) Pronated,(R) Pronated Palpation Assessment Location lumbar spine Palpation Findings Soft Tissue Tightness,Muscle Guarding PT-OP-K Range of Motion Start: 05/20/22 11:33 Freq: Status: Active Protocol: Document 05/20/22 14:34 SAK (Rec: 05/20/22 16:02 [facility] [id number]) Lumbar Spine Range of Motion Lumbar Spine Active Testing Position Standing Flexion 30 Extension 10 Rotation Left 20 Rotation Right 20 Lateral Flexion Left 40 Lateral Flexion Right 25 ROM Limitations Soft Tissue Tightness,Pain Hip Goniometric Range of Motion Hip Left Hip ROM WFL No Testing Position Supine PT-OP-Q Treatments Start: 05/20/22 11:33 Freq: Status: Active Protocol: Document 06/12/22 13:46 [facility] (Rec: 06/12/22 14:41 [facility] [id number]) Cardio Equipment Recumbent Stepper (Sci-Fit) Duration (Minutes) 6 Resistance 1-3 (pt self adjusting) Seat Position 8 Other cues for LE alignment Gym Equipment Shuttle Recovery Unilateral Squats Details 37 Reps/Time 2x20 Bilateral Squats Details Lvl1 Tb above knees for feedback Resistance 50# Reps/Time 2x15 Sport Cord yellow Exercise Details fwd, side dwayne Cord/Resistance yellow Reps/Duration 5x fwd, 3x each side Comments cues for postural correction stacking ribcage over pelvis, activation of core and gluteals Therapeutic Exercises Supine Exercises supine clam Resistance L1 TB Reps/Minutes 10x Comments cues for small movement, no arching ball squeeze Comments discussed only - pt to obtain ball for HEP bridge Reps/Minutes 10x Comments small lift, cue for TrA pelvic tilt Supine Exercise Name w/TRA focus Equipment Used self-monitoring Reps/Minutes 5 min Comments cue for breath, overactive abs , improves w/ self-monitoring medial to ASIS Self-Care/Home Management Treatment Education Patient Education Body Mechanics,Home Exercise Program,Posture Other Education Modified clamshell to doing supine with L1 TB PT-OP-T Assessment and Plan Start: 05/20/22 11:33 Freq: Status: Active Protocol: Document 06/12/22 13:46 [facility] (Rec: 06/12/22 14:41 [facility] [id number]) Physical Therapy Assessment Impairments Impairments Activity Tolerance,Pain, Posture,Soft Tissue Mobility, Strength Goals Four Impairment postural dysfunction Short Term Goal (STG) Patient to be educated in neutral postural alignment sitting and standing STG Duration 06/18/22 Sole Edge Inker Machine Goal (LTG) patient will demonstate ability to self-correct postural alignment in sitting and standing toward neutral for improved function LTG Duration 08/18/22 Three Impairment weakness and dec flexibility Impairment contributing to lumbar spine dysfunction, malalignment and pain Short Term Goal (STG) patient to be instructed in HEP to support therapy activities and be compliant and independent STG Duration 07/16/22 Senior Living Goal (LTG) Patient will demonstrate improvement in core, pelvis, and hip strength and flexibility to WNL to allow her to do her usual activities with minimal to no pain. LTG Duration 08/18/22 One Impairment Decreased activity tolerance Impairment Increased pain immediately upon standing leading to poor standing and walking tolerance Short Term Goal (STG) Patient able to stand or walk 15 min without an increase in pain STG Duration 07/02/22 Sole Edge Inker Machine Goal (LTG) Patient able to stand or walk 1 hour with min to no increase in pain LTG Duration 08/18/22 Two Impairment bilateral lumbar pain right greater than left Impairment 5/10 limiting activity Senior Living Goal (LTG) Decrease pain to no greater than 2/10 with all usual activities LTG Duration 08/18/22 Assessment Summary Assessment Patient expressed feeling more hopeful after second opinion with Dr. Cabral. Much improved postural awareness and ability to adjust if feels pain. IMproved understanding of ther ex performance and able to do supine clam (small movement) without pain. Physical Therapy Plan Frequency and Duration Frequency of Treatment 2x/Week Duration of treatment (weeks) 12 Plan of Care Start Date 05/20/22 Plan of Care End Date 08/18/22 Therapeutic Interventions Therapeutic Interventions Home Exercise Program,Manual Therapy,Neuromuscular Re- education,Patient/Caregiver Education,Self-Care/Home Management,Soft Tissue Mobilization,Taping, Therapeutic Activities, Therapeutic Exercises Modalities Electric Stimulation,Hot Packs ,Ultrasound Next Visit Focus/Plan Next Visit Plan Consider aquatic exercise; given contact information for Sully Maldonado for private session. Continue supine core progression, postural correction ex, review sidelying hip abduction. further postural correction education and ex as papo.
--- NOTE | 2022-06-27 14:28 | PT.OTN ---
Current Diagnoses Other chronic pain (06/27/22) Spondylosis without myelopathy or radiculopathy, lumbar region (06/27/22) Other intervertebral disc degeneration, lumbar region (06/27/22) Low back pain, unspecified (06/27/22) Physical Therapy Treatment Note PT-OP-A Visit Information Start: 05/20/22 11:33 Freq: Status: Active Protocol: Document 06/27/22 13:47 SP (Rec: 06/27/22 14:31 SP [id number]) Out-Patient Physical Therapy Visit Information Visit Information Visit Type Treatment Note Visit Start Time 13:48 Visit Stop Time 14:28 Total Visit Minutes 40 Visit Number 7 Number of EARLY CHILDHOOD DIRECTOR Visits 1 Evaluation Information Evaluation Date 05/20/22 Precautions Precautions prior lumbar lami x 2, blood clots on chronic anticoagulation, DM, 3 c- sections, history polio, rotator cuff tear PT-OP-B Current Condition Start: 05/20/22 11:33 Freq: Status: Active Protocol: Document 05/28/22 13:43 SAK (Rec: 05/28/22 14:30 SAK [id number]) Current Condition History of Current Condition Onset Date 40 yrs Current Complaints worsening low back, hip pain History of Current Condition 40 yrs ago 2 lumbar laminectomies 1973 and 1975, has had intermittant back pain since then. Always had back pain; golf, walked, hiked. Has been getting worse, right has always hurt, for 3 months has new pain left side. States she can stretch and make it go away, but is worried that if that no longer works, feel she won't be able to walk; rotates and extends left while pushing down on left hip. Walks, but no other exercise program, takes care of home, dog, yard. Uses heat. Has always had numbness in calves to ankles. Diagnosed with Type II DM. Sleeps mostly on right side. Not receptive to infant caregiver but is going to try massage and accupuncture Prior Treatments and Tests MRI 02/22/22: Specific levels: T12-L1: Posterior disc protrusion and along with an annular fissure and osteophytes. Facet arthropathy. Mild central narrowing involving the left subarticular recess. Moderate right and left neural foraminal narrowing. L1-L2: Mild central narrowing . Diffuse disc bulge and a small central protrusion. [id number] facet arthropathy. Mild right and moderate left neural foraminal narrowing. L2-L3: Diffuse disc bulge and a superimposed central protrusion. Moderate central narrowing involving both subarticular recesses. There is facet arthropathy. Mild bilateral neural foraminal narrowing. L3-L4: Ligamentum flavum hypertrophy, central protrusion, and a diffuse disc bulge combined with moderate to severe facet arthropathy. Severe central narrowing affecting the left greater than right subarticular recesses. Mild left neural foraminal narrowing. The disc is slightly uncovered at this level. L4-L5: Posterior osteophyte with an annular fissure and a right subarticular extrusion. Diffuse disc bulge. Facet arthropathy. There is moderate right subarticular recess narrowing displacing the traversing L5 nerve root. Mild overall central narrowing . There is also mild narrowing at the left subarticular recess. Moderate right and [id number]-[id number]-[id number] left neural foraminal narrowing. L5-S1: Ligamentum flavum hypertrophy and a diffuse disc bulge. Posterior osteophyte. Mild to moderate central narrowing affecting the right greater than left subarticular recesses. Mild bilateral neural foraminal narrowing. Saw PA in neurosurgery dept in [facility]; suggested see GP and start PT. Stated surgery wouldn't help. PT-OP-C Subjective Start: 05/20/22 11:33 Freq: Status: Active Protocol: Document 06/27/22 13:47 SP (Rec: 06/27/22 14:31 SP [id number]) OP-PT Subjective Patient Comments Patient Comments Pt reports not having a good day and back problems, only want to do the bike and shuttle recovery. PT-OP-H Neuro Start: 05/20/22 11:33 Freq: Status: Active Protocol: Document 05/20/22 14:34 SAK (Rec: 05/20/22 16:02 SAK [id number]) Sensation Evaluation Gross Sensation Gross Sensation Left LE Impaired,Right LE Impaired Sensation Description Paresthesia,Pins & [place] PT-OP-J Posture/Palpation/Skin Start: 05/20/22 11:33 Freq: Status: Active Protocol: Document 05/20/22 14:34 SAK (Rec: 05/20/22 16:02 SAK [id number]) Posture Evaluation Position Standing Head/C-Spine Posture Forward Head T-Spine Posture Increased Kyphosis L-Spine Posture Flattened Shoulder Posture (L) Rounded,(R) Rounded Scapula Posture (L) Protracted,(R) Protracted Pelvis Posture Anteriorly Tilted Weight Distribution Weight Shifted Left Hip Posture (L) Externally Rotated,(R) Externally Rotated Ankle/Foot Posture (L) Pronated,(R) Pronated Palpation Assessment Location lumbar spine Palpation Findings Soft Tissue Tightness,Muscle Guarding PT-OP-K Range of Motion Start: 05/20/22 11:33 Freq: Status: Active Protocol: Document 05/20/22 14:34 SAK (Rec: 05/20/22 16:02 SAK [id number]) Lumbar Spine Range of Motion Lumbar Spine Active Testing Position Standing Flexion 30 Extension 10 Rotation Left 20 Rotation Right 20 Lateral Flexion Left 40 Lateral Flexion Right 25 ROM Limitations Soft Tissue Tightness,Pain Hip Goniometric Range of Motion Hip Left Hip ROM WFL No Testing Position Supine PT-OP-Q Treatments Start: 05/20/22 11:33 Freq: Status: Active Protocol: Document 06/27/22 13:47 SP (Rec: 06/27/22 14:31 SP [id number]) Cardio Equipment Recumbent Stepper (Sci-Fit) Duration (Minutes) 6 Resistance 1.5 Seat Position 8 Other cues for LE alignment Gym Equipment Shuttle Recovery Bilateral Squats Details Lvl1 Tb above knees for feedback Resistance 50# (2 old bands) Reps/Time 2x15 Self-Care/Home Management Treatment Education Patient Education Body Mechanics,Home Exercise Program,Joint Protection,Pain Management,Posture Other Education Extra time spend sleeping and use pillows between BLEs/ BUEs /at back and under ribcage if give decrease L shld pressure support and now turn over with pillows between BLEs. Initiated seated Piriformis stretching and good feedback results. PT-OP-T Assessment and Plan Start: 05/20/22 11:33 Freq: Status: Active Protocol: Document 06/27/22 13:47 SP (Rec: 06/27/22 14:31 SP [id number]) Physical Therapy Assessment Goals Four Impairment postural dysfunction Short Term Goal (STG) Patient to be educated in neutral postural alignment sitting and standing STG Duration 06/18/22 Shank Threader Goal (LTG) patient will demonstate ability to self-correct postural alignment in sitting and standing toward neutral for improved function LTG Duration 08/18/22 Three Impairment weakness and dec flexibility Impairment contributing to lumbar spine dysfunction, malalignment and pain Short Term Goal (STG) patient to be instructed in HEP to support therapy activities and be compliant and independent STG Duration 07/16/22 Detention Goal (LTG) Patient will demonstrate improvement in core, pelvis, and hip strength and flexibility to WNL to allow her to do her usual activities with minimal to no pain. LTG Duration 08/18/22 One Impairment Decreased activity tolerance Impairment Increased pain immediately upon standing leading to poor standing and walking tolerance Short Term Goal (STG) Patient able to stand or walk 15 min without an increase in pain STG Duration 07/02/22 Shank Threader Goal (LTG) Patient able to stand or walk 1 hour with min to no increase in pain LTG Duration 08/18/22 Two Impairment bilateral lumbar pain right greater than left Impairment 5/10 limiting activity Shank Threader Goal (LTG) Decrease pain to no greater than 2/10 with all usual activities LTG Duration 08/18/22 Assessment Summary Assessment Pt good feedback response to machine ther ex, cues TA to support back. Extra time spent for back support sleeping, pt not sure if felt will do at home. piriformis stretch was painfree on hip/back. Pt declined manual or further ex this tx regardless of encouragement TA fac to support back. Physical Therapy Plan Frequency and Duration Frequency of Treatment 2x/Week Duration of treatment (weeks) 12 Plan of Care Start Date 05/20/22 Plan of Care End Date 08/18/22 Therapeutic Interventions Therapeutic Interventions Home Exercise Program,Manual Therapy,Neuromuscular Re- education,Patient/Caregiver Education,Self-Care/Home Management,Soft Tissue Mobilization,Taping, Therapeutic Activities, Therapeutic Exercises Modalities Electric Stimulation,Hot Packs ,Ultrasound Next Visit Focus/Plan Next Visit Plan Recheck respone to pillow support discussed sidesleeping last tx, review HEP. POC: Consider aquatic exercise ; given contact information for Sully Maldonado for private session. Continue supine core progression, postural correction ex, review sidelying hip abduction. further postural correction education and ex as papo.
--- NOTE | 2022-07-08 16:37 | PT.OTN ---
Addendum entered and electronically signed by Catina Beltran, PT 07/15/22 14:01: 07/15/22 Amend: patient seen for 60 min. Original Note: Current Diagnoses Other chronic pain (07/08/22) Spondylosis without myelopathy or radiculopathy, lumbar region (07/08/22) Other intervertebral disc degeneration, lumbar region (07/08/22) Low back pain, unspecified (07/08/22) Physical Therapy Treatment Note PT-OP-A Visit Information Start: 05/20/22 11:33 Freq: Status: Active Protocol: Document 07/08/22 12:57 SAK (Rec: 07/08/22 13:46 SAK [id number]) Out-Patient Physical Therapy Visit Information Visit Information Visit Type Treatment Note Visit Start Time 13:00 Visit Stop Time 13:45 Total Visit Minutes 45 Visit Number 8 Number of SHREDDING MACHINE TENDER Visits 1 Evaluation Information Evaluation Date 05/20/22 Precautions Precautions prior lumbar lami x 2, blood clots on chronic anticoagulation, DM, 3 c- sections, history polio, rotator cuff tear PT-OP-B Current Condition Start: 05/20/22 11:33 Freq: Status: Active Protocol: Document 05/28/22 13:43 SAK (Rec: 05/28/22 14:30 SAK [id number]) Current Condition History of Current Condition Onset Date 40 yrs Current Complaints worsening low back, hip pain History of Current Condition 40 yrs ago 2 lumbar laminectomies 1973 and 1975, has had intermittant back pain since then. Always had back pain; golf, walked, hiked. Has been getting worse, right has always hurt, for 3 months has new pain left side. States she can stretch and make it go away, but is worried that if that no longer works, feel she won't be able to walk; rotates and extends left while pushing down on left hip. Walks, but no other exercise program, takes care of home, dog, yard. Uses heat. Has always had numbness in calves to ankles. Diagnosed with Type II DM. Sleeps mostly on right side. Not receptive to multi care technician but is going to try massage and accupuncture Prior Treatments and Tests MRI 02/22/22: Specific levels: T12-L1: Posterior disc protrusion and along with an annular fissure and osteophytes. Facet arthropathy. Mild central narrowing involving the left subarticular recess. Moderate right and left neural foraminal narrowing. L1-L2: Mild central narrowing . Diffuse disc bulge and a small central protrusion. [id number] facet arthropathy. Mild right and moderate left neural foraminal narrowing. L2-L3: Diffuse disc bulge and a superimposed central protrusion. Moderate central narrowing involving both subarticular recesses. There is facet arthropathy. Mild bilateral neural foraminal narrowing. L3-L4: Ligamentum flavum hypertrophy, central protrusion, and a diffuse disc bulge combined with moderate to severe facet arthropathy. Severe central narrowing affecting the left greater than right subarticular recesses. Mild left neural foraminal narrowing. The disc is slightly uncovered at this level. L4-L5: Posterior osteophyte with an annular fissure and a right subarticular extrusion. Diffuse disc bulge. Facet arthropathy. There is moderate right subarticular recess narrowing displacing the traversing L5 nerve root. Mild overall central narrowing . There is also mild narrowing at the left subarticular recess. Moderate right and [id number]-[id number] left neural foraminal narrowing. L5-S1: Ligamentum flavum hypertrophy and a diffuse disc bulge. Posterior osteophyte. Mild to moderate central narrowing affecting the right greater than left subarticular recesses. Mild bilateral neural foraminal narrowing. Saw PA in neurosurgery dept in [facility]; suggested see GP and start PT. Stated surgery wouldn't help. PT-OP-C Subjective Start: 05/20/22 11:33 Freq: Status: Active Protocol: Document 07/08/22 12:57 [facility] (Rec: 07/08/22 13:46 [facility] [id number]) OP-PT Subjective Patient Comments Patient Comments Reports extremely stressful past couple weeks, has to move due to current rental being sold. This am confirmed new place (apartment) in [facility]. Feels more pain due to stress. Does have some help for packing and moving; moves end of July. Hasn't been able to use pillows as recommended due to rolling around in bed: it just doesn 't work for me. PT-OP-H Neuro Start: 05/20/22 11:33 Freq: Status: Active Protocol: Document 05/20/22 14:34 [facility] (Rec: 05/20/22 16:02 [facility] [id number]) Sensation Evaluation Gross Sensation Gross Sensation Left LE Impaired,Right LE Impaired Sensation Description Paresthesia,Pins & [place] PT-OP-J Posture/Palpation/Skin Start: 05/20/22 11:33 Freq: Status: Active Protocol: Document 05/20/22 14:34 SAK (Rec: 05/20/22 16:02 [facility] [id number]) Posture Evaluation Position Standing Head/C-Spine Posture Forward Head T-Spine Posture Increased Kyphosis L-Spine Posture Flattened Shoulder Posture (L) Rounded,(R) Rounded Scapula Posture (L) Protracted,(R) Protracted Pelvis Posture Anteriorly Tilted Weight Distribution Weight Shifted Left Hip Posture (L) Externally Rotated,(R) Externally Rotated Ankle/Foot Posture (L) Pronated,(R) Pronated Palpation Assessment Location lumbar spine Palpation Findings Soft Tissue Tightness,Muscle Guarding PT-OP-K Range of Motion Start: 05/20/22 11:33 Freq: Status: Active Protocol: Document 05/20/22 14:34 [facility] (Rec: 05/20/22 16:02 [facility] [id number]) Lumbar Spine Range of Motion Lumbar Spine Active Testing Position Standing Flexion 30 Extension 10 Rotation Left 20 Rotation Right 20 Lateral Flexion Left 40 Lateral Flexion Right 25 ROM Limitations Soft Tissue Tightness,Pain Hip Goniometric Range of Motion Hip Left Hip ROM WFL No Testing Position Supine PT-OP-Q Treatments Start: 05/20/22 11:33 Freq: Status: Active Protocol: Document 07/08/22 12:57 SAK (Rec: 07/08/22 13:46 [facility] [id number]) Cardio Equipment Recumbent Stepper (Sci-Fit) Duration (Minutes) 8 Resistance 2 Seat Position 8 Other cues for LE alignment, core engagement Gym Equipment Shuttle Recovery Bilateral Squats Details Lvl1 Tb above knees for feedback Resistance 50# (1 new, 1 old bands) Reps/Time 2x15 Manual Therapy Treatment Soft Tissue Mobilization right lumbar paraspinals Mobilization Type Myofascial Release,Strumming Intensity/Depth Moderate Body Position Sidelying Self-Care/Home Management Treatment Education Patient Education Body Mechanics,Home Exercise Program,Joint Protection,Pain Management,Posture Other Education lifting techniques, back protection with packing. Supine sleep positioning, pillows under LE's deep breathing for relaxation, pain management PT-OP-T Assessment and Plan Start: 05/20/22 11:33 Freq: Status: Active Protocol: Document 07/08/22 12:57 [facility] (Rec: 07/08/22 13:46 [facility] [id number]) Physical Therapy Assessment Impairments Impairments Activity Tolerance,Pain, Posture,Soft Tissue Mobility, Strength Goals Four Impairment postural dysfunction Short Term Goal (STG) Patient to be educated in neutral postural alignment sitting and standing STG Duration 06/18/22 Custodial Goal (LTG) patient will demonstate ability to self-correct postural alignment in sitting and standing toward neutral for improved function LTG Duration 08/18/22 Three Impairment weakness and dec flexibility Impairment contributing to lumbar spine dysfunction, malalignment and pain Short Term Goal (STG) patient to be instructed in HEP to support therapy activities and be compliant and independent STG Duration 07/16/22 Director Geophysical Laboratory Goal (LTG) Patient will demonstrate improvement in core, pelvis, and hip strength and flexibility to WNL to allow her to do her usual activities with minimal to no pain. LTG Duration 08/18/22 One Impairment Decreased activity tolerance Impairment Increased pain immediately upon standing leading to poor standing and walking tolerance Short Term Goal (STG) Patient able to stand or walk 15 min without an increase in pain STG Duration 07/02/22 Director Geophysical Laboratory Goal (LTG) Patient able to stand or walk 1 hour with min to no increase in pain LTG Duration 08/18/22 Two Impairment bilateral lumbar pain right greater than left Impairment 5/10 limiting activity Director Geophysical Laboratory Goal (LTG) Decrease pain to no greater than 2/10 with all usual activities LTG Duration 08/18/22 Assessment Summary Assessment Patient reporting increased pain level due to stressors at home. Has not made it to pool yet for aquatic exercises , this was highly encouraged even in the midst of getting ready to move. Compliant to HEP. Physical Therapy Plan Frequency and Duration Frequency of Treatment 2x/Week Duration of treatment (weeks) 12 Plan of Care Start Date 05/20/22 Plan of Care End Date 08/18/22 Therapeutic Interventions Therapeutic Interventions Home Exercise Program,Manual Therapy,Neuromuscular Re- education,Patient/Caregiver Education,Self-Care/Home Management,Soft Tissue Mobilization,Taping, Therapeutic Activities, Therapeutic Exercises Modalities Electric Stimulation,Hot Packs ,Ultrasound Next Visit Focus/Plan Next Note Type Treatment Note Next Visit Plan Review use of pillows for bed positioning especially supine as done today. Question whether has contacted pool yet . Continue progression of core strengthening and stabilization as tolerated. Review sidelying hip abd.
== END 2022-12-18 14:03 | disposition home or self-care (01) ==
LOC: PHYS 13:00
PROVIDERS: Family Provider Family Medicine; PCP Family Medicine; Referring Provider Family Medicine; Visit Provider Family Medicine
DX: M47.816 Spondylosis without myelopathy or radiculopathy, lumbar region (principal); M51.36 Other intervertebral disc degeneration, lumbar region; M54.50 Low back pain, unspecified; G89.29 Other chronic pain
CPT/HCPCS: 97110; 97140; 97162; 97535

== ENCOUNTER → 2022-11-19 14:01 | Outpatient (CLI) | payer MEDICARE, OTHER, SELFPAY ==
[2022-11-19 15:17] LABS: BUN Creatinine Ratio 26.5 (6-22); Blood Urea Nitrogen 27 mg/dL (7-17); Calcium 9.7 mg/dL (8.4-10.2); Carbon Dioxide 27 mmol/L (22-32); Chloride 101 mmol/L (98-107); Estimated Glomerular Filt Rate 55 mL/min (>60); Glucose 84 mg/dL (80-110); HEMOLYSIS < 15 (0-50); Potassium 4.2 mmol/L (3.4-5.1); Sodium 135 mmol/L (137-145)
[2022-11-20 04:38] LABS: x Labcorp Estim. Avg Glu (eAG) 140 mg/dL (.); x Labcorp Hemoglobin A1c 6.5 % (4.8-5.6)
== END ==
PROVIDERS: Family Provider Family Medicine; PCP Family Medicine; Referring Provider Family Medicine; Visit Provider Family Medicine
DX: E11.9 Type 2 diabetes mellitus without complications (principal); I10 Essential (primary) hypertension
CPT/HCPCS: 36415; 80048; 83036

== ENCOUNTER → 2023-04-27 09:04 | Outpatient (CLI) | payer MEDICARE, OTHER, SELFPAY ==
--- NOTE | 2023-04-27 09:06 | DI.ECHO.S_ITS ---
[place] [facility]---------+ [facility] +---------+ : : [address] : : : : [id number] : : : : Phone: [phone]+ Echocardiogram Report + + :Name: BETO GALINDO Study Date: 04/27/2023 Height: 61 in : :[facility] ReadingLocation: Weight: 140 lb : : Gender: Female BSA: 1.6 m2 : :: 1940 Age: 83 yrs BP: 104/61 mmHg: :Reason For Study: AORTIC VALVE DISORDERS : :Ordering Physician: SAUL, : :BARBARA Performed By: Melva Huston : :Referring: BARBARA HUGHES : + + Interpretation Summary The ejection fraction is estimated to be 60-65%. There is mild to moderate mitral annular calcification. The mitral valve mean gradient is 2.8 mmHg. The aortic valve is moderately calcified. There is moderate to severely reduced leaflet mobility. There is moderate to severe aortic stenosis. The aortic valve mean gradient is 28 mmHg. Procedure: A two-dimensional transthoracic echocardiogram with color flow and Doppler was performed. The study quality was technically adequate. There is no prior echocardiogram noted for this patient. The patient was in sinus rhythm with heart rates between 65-70 bpm during the exam. Left Ventricle: The left ventricle is normal in size and wall thickness. The ejection fraction is estimated to be 60-65%. Left ventricular wall motion is normal. Right Ventricle: The right ventricle is normal in size and function. Atria: The left atrium is mildly dilated. Right atrial size is normal. There is no Doppler evidence for an interatrial shunt. Mitral Valve: There is mild to moderate mitral annular calcification. The mitral valve leaflets are mildly calcified. The mitral valve mean gradient is 2.8 mmHg. There is trace mitral regurgitation. Aortic Valve: The aortic valve is trileaflet. The aortic valve is moderately calcified. There is moderate to severely reduced leaflet mobility. There is moderate to severe aortic stenosis. The peak aortic velocity is 3.5 m/sec. The aortic valve mean gradient is 28 mmHg. The calculated aortic valve area is 0.93 cm2. There is mild to moderate aortic regurgitation. Tricuspid Valve: The tricuspid valve is normal in structure and function. There is trace tricuspid regurgitation. Pulmonic Valve: The pulmonic valve leaflets are thin and pliable; valve motion is normal. There is trace pulmonic regurgitation. Great Vessels: The aortic root is normal size. The dimensions of the ascending aorta are normal. The IVC is of normal diameter and collapses greater than 50% with a sniff. This suggests a low right atrial pressure of 3 mm Hg. Pericardium/ Pleura There is no pericardial effusion. There is no pleural effusion. MMode/2D Measurements & Calculations LVIDd: 4.3 cm LVOT diam: 2.2 cm LVIDs: 2.9 cm Ao root diam: 2.8 cm FS: 32.7 % asc Aorta Diam: 3.0 cm IVSd: 0.99 cm Ao Arch Diam (Prox Trans): 2.4 cm LVPWd: 0.97 cm LV abdalla. diameter/BSA (cm/m^2): 2.7 LV sys. diameter/BSA (cm/m^2): 1.8 LA A2 area: 19.6 cm2 RA long axis: 4.7 cm LA A4 area: 17.6 cm2 RA area: 15.1 cm2 LA length (vol): 5.1 cm RA vol: 40.9 ml LA vol: 57.2 ml RA : 25.2 ml/m2 LA vol index: 35.3 ml/m2 IVC diam: 1.9 cm RVD1 (basal): 3.4 cm RVD2 (mid): 2.2 cm TAPSE: 2.1 cm Doppler Measurements & Calculations Ao V2 max: 347.2 cm/sec LVOT Max Jad: 87.4 cm/sec Ao V2 mean: 250.1 cm/sec LV V1 max P.1 mmHg Ao max P.2 mmHg LV V1 VTI: 20.7 cm Ao mean P.0 mmHg ARIEL(I,D): 0.94 cm2 Ao V2 VTI: 80.9 cm ARIEL(V,D): 0.93 cm2 sev ratio: 0.26 ARIEL indexed to BSA (cm^2/m^2): 0.58 AI P1/2t: 443.6 msec AI dec slope: 253.7 cm/sec2 MV E max jad: 94.9 cm/sec PA V2 max: 97.5 cm/sec MV A max jad: 118.4 cm/sec PA V2 mean: 68.0 cm/sec MV E/A: 0.80 PA mean P.1 mmHg Med Peak E' Jad: 5.0 cm/sec PA pr(Accel): 34.5 mmHg E/E' med: 19.0 Lat Peak E' Jad: 5.7 cm/sec E/E' lat: 16.6 E/e' average: 17.8 MV dec time: 0.24 sec MVA(VTI): 1.9 cm2 MV V2 mean: 77.5 cm/sec SV(LVOT): 76.2 ml MV mean P.8 mmHg MV V2 VTI: 39.8 cm Reading Physician:04:10 PM
== END ==
PROVIDERS: Family Provider Family Medicine; PCP Family Medicine; Referring Provider Family Medicine; Visit Provider Family Medicine
DX: R53.83 Other fatigue; I08.0 Rheumatic disorders of both mitral and aortic valves
CPT/HCPCS: 93306

== ENCOUNTER → 2024-04-05 09:49 | Outpatient (CLI) | payer MEDICARE, OTHER, SELFPAY ==
[2024-04-05 10:42] LABS: Add Manual Diff / Slide Review NO; Basophils Absolute Auto 100 /uL (0-100); Basophils Percent Auto 2.5 % (0-2); Eosinophils Absolute Auto 200 /uL (0-450); Eosinophils Percent Auto 3.6 % (2-4); Hematocrit 39.5 % (36-46); Hemoglobin 13.4 g/dL (12.0-16.0); Lymphocytes Absolute Auto 1800 /uL (1100-4500); Lymphocytes Percent Auto 32.5 % (25-40); Mean Corpuscular Hemoglobin 32.9 PG (26-34); Mean Corpuscular Volume 96.9 fL (80-100); Monocytes Absolute Auto 400 /uL (0-900); Monocytes Percent Auto 6.7 % (3-14); Neutrophils Absolute Auto 3000 /uL (1500-7000); Neutrophils Percent Auto 54.7 % (50-75); Platelet Count 137 X10^3/uL (150-400); Red Blood Cell Count 4.08 X10^6/uL (4.0-5.2); Red Cell Distribution Width 13.8 % (11.6-14.8); White Blood Cell Count 5.5 X10^3/uL (4.5-11.0)
[2024-04-05 10:54] LABS: Hemoglobin A1C% w Est Avg Glu 6.6 % (4.0-6.0)
[2024-04-05 10:57] LABS: Alanine Aminotransferase 18 IU/L (<35); Albumin 4.2 g/dL (3.5-5.0); Albumin Globulin Ratio 1.6 (1.0-2.8); Alkaline Phosphatase 52 U/L (38-126); Aspartate Aminotransferase 31 IU/L (14-36); BUN Creatinine Ratio 21.4 (6-22); Bilirubin Total 0.6 mg/dL (0.2-1.3); Blood Urea Nitrogen 24 mg/dL (7-17); Calcium 9.6 mg/dL (8.4-10.2); Carbon Dioxide 25 mmol/L (22-32); Chloride 106 mmol/L (98-107); Cholesterol 195 mg/dL (140-199); Estimated Glomerular Filt Rate 48 mL/min (>60); Globulin 2.6 g/dL (1.7-4.1); Glucose 138 mg/dL (80-110); HDL Cholesterol 69 mg/dL (40-60); HEMOLYSIS < 15 (0-50); LDL Cholesterol Calculated 98 mg/dL (<100); Potassium 3.9 mmol/L (3.4-5.1); Sodium 138 mmol/L (137-145); Total Protein 6.8 g/dL (6.3-8.2); Triglycerides 140 mg/dL (35-150)
[2024-04-05 10:59] LABS: Creatinine Urine Random 78.08 mg/dL
[2024-04-05 11:03] LABS: Microalbumin Urine Random 0.7 mg/dL (0-1.6)
[2024-04-05 11:28] LABS: TSH w/ Reflex to FT4 2.33 uIU/mL (0.47-4.68)
[2024-04-06 04:09] LABS: Apolipoprotein B 91 mg/dL (<90)
== END ==
PROVIDERS: Family Provider Family Medicine; PCP Family Medicine; Referring Provider Family Medicine; Visit Provider Family Medicine
DX: M47.816 Spondylosis without myelopathy or radiculopathy, lumbar region (principal); E11.9 Type 2 diabetes mellitus without complications; I10 Essential (primary) hypertension; E78.5 Hyperlipidemia, unspecified; M51.369 Other intervertebral disc degeneration, lumbar region without mention of lumbar back pain or lower extremity pain; G89.29 Other chronic pain; M51.360 Other intervertebral disc degeneration, lumbar region with discogenic back pain only
CPT/HCPCS: 36415; 80053; 80061; 82043; 82172; 82570; 83036; 84443; 85025

== ENCOUNTER → 2024-06-21 11:17 | Outpatient (CLI) | payer MEDICARE, OTHER, SELFPAY ==
--- NOTE | 2024-06-21 11:19 | DI.RAD.S_ITS ---
PROCEDURE: XR LUMBAR SPINE MIN 4V INDICATIONS: BACK PAIN TECHNIQUE: 5 views of the lumbar spine were acquired, including bilateral oblique views. COMPARISON: [facility], , XR LUMBAR SPINE 2-3V, 02/22/2022, 11:42. FINDINGS: Bones: 5 nonrib-bearing vertebrae are present. Dextroscoliotic curvature. Straightening of the normal lumbar lordosis. Mild retrolisthesis of L4 on L5. Mild anterolisthesis of L5 on S1. Decreased osseous mineralization. No vertebral body compression fractures. No suspicious bony lesions. There is multilevel facet arthropathy, worse at L4-5 and L5-S1. Multilevel disc height loss with degenerative endplate changes and spurring is present. Soft tissues: Overlying bowel gas pattern is normal. No suspicious soft tissue calcifications. Atherosclerotic vascular calcifications. Oblique images: No definite pars defects. IMPRESSION: Severe degenerative changes of the lumbar spine are similar to prior. Dictated by: Crescencio Stanley M.D. on 06/21/2024 at 12:19 Approved by: Crescencio Stanley M.D. on 06/21/2024 at 12:21
== END ==
LOC: RAD 11:19
PROVIDERS: Family Provider Family Medicine; PCP Family Medicine; Referring Provider Physical Medicine & Rehabilitation; Visit Provider Physical Medicine & Rehabilitation
DX: M47.816 Spondylosis without myelopathy or radiculopathy, lumbar region (principal); M51.360 Other intervertebral disc degeneration, lumbar region with discogenic back pain only; M47.817 Spondylosis without myelopathy or radiculopathy, lumbosacral region
CPT/HCPCS: 72110

== ENCOUNTER 2024-08-02 13:21 | Outpatient (CLI) | payer MEDICARE, OTHER, SELFPAY ==
[2024-08-02] VITALS (10 sets, daily range): BP systolic 102–150; BP diastolic 51–65; PULSE 74–87; RESP 12–22; TEMP 36.4; O2SAT 99–100
[2024-08-02] MEDS: MIDAZOLAM 2 MG/2 ML VIAL 1 MG IV ×2 (14:50→15:00)
[2024-08-02] MEDS: BUPIVACAINE 0.5% (PF) 10 ML VIAL 5 ML INJ (14:54)
[2024-08-02] MEDS: iopamidoL 15 ML VIAL 3 ML INJ (14:55)
[2024-08-02] MEDS: LIDOCAINE 1% 20 ML 5 ML INJ (14:55)
--- NOTE | 2024-08-02 15:08 | P.PCN_ITS ---
Date/Time/Diagnoses Date of procedure: 08/02/24 Time of procedure: 15:08 Pre-procedure diagnosis: 1. FACET ARTHROPATHY Post-procedure diagnosis: same Procedure Notes Procedure: 1. BILATERAL- L4, L5 and S1 DIAGNOSTIC MB BLOCKS with LA Anesthetic Indications: Irene is referred by Dr. Gan for treatment of Bilateral Axial LBP. Physician: Maximilian Diana Total Fluoroscopy time (seconds): 10 Total sedation minutes: 15 Complications: none Procedure in detail & Post-procedure care: DESCRIPTION OF PROCEDURE Fluoroscopically guided, contrast-controlled bilateral L4, L5 and S1 medial branch blocks with 0.5cc of 0.5% Marcaine. Following review of allergy and review of potential side effects and complications, including, but not necessarily limited to, infection, allergic reaction, local tissue breakdown, nerve injury, paralysis, stroke and possible , the patient indicated that the patient understood and agreed to proceed. An informed consent document was signed by the patient, witnessed by a nurse, and placed in the patient's chart. After review of previous anaesthesic history and IV conscious sedation the patient was deemed safe to proceed with today's procedure with IV conscious sedation as ASA class II designation. Safety time-out was performed to confirm patient ID, procedure to be performed and site of procedure. IV sedation was accomplished with a combination of 2mg of Versed was administered by the RN after DO order, titrated to patient comfort during the course of the procedure while the patient remained responsive to all verbal commands In the prone position, following sterile prep and drape of the lumbar region, the right L4, L5 and S1 anatomical location of the medial branch of the dorsal ramus was identified fluoroscopically. Subsequently an anesthetic skin wheal using 1% lidocaine solution was initiated at each of the anatomical spots. Subsequently then a 22-gauge 3.5-inch spinal needle was atraumatically introduced and advanced under fluoroscopic guidance at each of the corresponding sites at the right L4, L5 and S1 MB. After negative aspiration, 0.2cc of Isovue 200 was injected, confirming placement without vascular or intrathecal uptake. Subsequently then 0.5cc of 0.5% Marcaine solution was injected at each of the corresponding sites at the right L4, L5 and S1 medial branch locations. The identical procedure was replicated on the left. The patient tolerated the procedure well without signs or symptoms of complications prior to transfer to the recovery area continued monitoring without incident. Post-procedure, the patient was monitored initiating provocative activities to measure the amount of relief from block of the facetogenic pain. The patient reported a VAS of 7 prior to the procedure and a post-procedure VAS of 1. It has been a pleasure to assist in the diagnostic and therapeutic care of your patient. POST OP INSTRUCTIONS The patient was provided with a Pain Log to complete over the next several hours and subsequent days prior to the patient's follow up with the ordering physician. If the patient has clinical lab clerk relief to the solution applied, then they may be a candidate for medial branch rhizotomy. The patient is aware, was provided, once again, with a Pain Log and will follow up with the referring physician for review and clinical correlation
== END 2024-08-02 15:34 | disposition home or self-care (01) ==
PROVIDERS: Family Provider Family Medicine; PCP Family Medicine; Referring Provider Physical Medicine & Rehabilitation; Visit Provider Physical Medicine & Rehabilitation
DX: M47.816 Spondylosis without myelopathy or radiculopathy, lumbar region (principal); M47.817 Spondylosis without myelopathy or radiculopathy, lumbosacral region
CPT/HCPCS: 64493; 64494; 99152; J2250

== ENCOUNTER → 2025-04-03 09:24 | Outpatient (CLI) | payer MEDICARE, OTHER, SELFPAY ==
[2025-04-03 10:20] LABS: Add Manual Diff / Slide Review NO; Hematocrit 39.7 % (36-46); Hemoglobin 13.8 g/dL (12.0-16.0); Lymphocytes Absolute Auto 1900 /uL (1100-4500); Mean Corpuscular HGB Conc 34.8 % (30-36); Mean Corpuscular Hemoglobin 32.1 PG (26-34); Mean Corpuscular Volume 92.2 fL (80-100); Platelet Count 167 X10^3/uL (150-400)
[2025-04-03 10:53] LABS: Hemoglobin A1C% w Est Avg Glu 6.6 % (4.0-6.0)
[2025-04-03 11:09] LABS: Alanine Aminotransferase 16 IU/L (<35); Albumin 4.3 g/dL (3.5-5.0); Albumin Globulin Ratio 1.5 (1.0-2.8); Alkaline Phosphatase 68 U/L (38-126); Blood Urea Nitrogen 26 mg/dL (7-17); Calcium 9.7 mg/dL (8.4-10.2); Carbon Dioxide 23 mmol/L (22-32); Chloride 103 mmol/L (98-107); Cholesterol 169 mg/dL (140-199); Estimated Glomerular Filt Rate 45 mL/min (>60); Globulin 2.9 g/dL (1.7-4.1); Glucose 140 mg/dL (70-99); HDL Cholesterol 62 mg/dL (40-60); HEMOLYSIS < 15 (0-50); Potassium 4.4 mmol/L (3.4-5.1); Sodium 138 mmol/L (137-145); Total Protein 7.2 g/dL (6.3-8.2); Triglycerides 149 mg/dL (35-150)
[2025-04-03 11:32] LABS: TSH w/ Reflex to FT4 2.85 uIU/mL (0.47-4.68)
[2025-04-04 14:30] LABS: Microalbumi Creatinin Ratio Ur 9.0 ug/mg CR (<30)
== END ==
PROVIDERS: Family Provider Family Medicine; PCP Family Medicine; Referring Provider Family Medicine; Visit Provider Family Medicine
DX: M54.50 Low back pain, unspecified (principal); I10 Essential (primary) hypertension; G89.29 Other chronic pain; M16.11 Unilateral primary osteoarthritis, right hip; Z96.641 Presence of right artificial hip joint; M47.816 Spondylosis without myelopathy or radiculopathy, lumbar region; M51.360 Other intervertebral disc degeneration, lumbar region with discogenic back pain only; Z98.890 Other specified postprocedural states; Z95.2 Presence of prosthetic heart valve
CPT/HCPCS: 36415; 80053; 80061; 82043; 82570; 83036; 84443; 85025

== ENCOUNTER → 2025-04-06 12:40 | Outpatient (CLI) | payer MEDICARE, OTHER, SELFPAY ==
--- NOTE | 2025-04-06 12:42 | DI.RAD.S_ITS ---
PROCEDURE: XR LUMBAR SPINE MIN 4V INDICATIONS: worsening low back pain on left TECHNIQUE: 5 views of the lumbar spine were acquired, including bilateral oblique views. COMPARISON: [facility], CR, XR LUMBAR SPINE 2-3V, 02/22/2022, 11:42. [facility], CR, XR LUMBAR SPINE MIN 4V, 06/21/2024, 11:27. FINDINGS: Bones: 5 nonrib-bearing vertebrae are present. No vertebral body compression fractures. No suspicious bony lesions. [id number] dextroconvex scoliosis is seen. Minimal retrolisthesis can be seen at the L2-L3, L4-L5, and L5-S1 levels. There is moderate to severe disc space narrowing seen at T12-L1, L1-L2, L3-L4, L4-L5, and L5-S1. At least moderate disc space narrowing can be seen at L1-L2. Multiple levels of significant facet hypertrophy can be seen. Right hip arthroplasty hardware is partially seen. Soft tissues: Overlying bowel gas pattern is normal. No suspicious soft tissue calcifications. Atherosclerotic calcification is noted. Oblique images: No pars defects. IMPRESSION: Multiple levels of significant degenerative change can be seen by plain film. [id number] dextroconvex scoliosis. Dictated by: Bryce Barrera M.D. on 04/08/2025 at 19:55 Approved by: Bryce Barrera M.D. on 04/08/2025 at 19:57
== END ==
LOC: RAD 12:41
PROVIDERS: Family Provider Family Medicine; PCP Family Medicine; Referring Provider Family Medicine; Visit Provider Family Medicine
DX: M47.816 Spondylosis without myelopathy or radiculopathy, lumbar region (principal); M51.360 Other intervertebral disc degeneration, lumbar region with discogenic back pain only; M48.061 Spinal stenosis, lumbar region without neurogenic claudication; M48.07 Spinal stenosis, lumbosacral region; M41.9 Scoliosis, unspecified
CPT/HCPCS: 72110